=== PATIENT | male | born 1980 | race Two or more races ===

== ENCOUNTER 2020-08-08 05:50 | Emergency (ER) | payer OTHER, SELFPAY ==
[2020-08-08 05:52] VITALS: BP 143/93; PULSE 90; RESP 18; TEMP 36.4; O2SAT 97
--- NOTE | 2020-08-08 06:22 | PC.NURSE ---
registration reports that at 06:10 patient walked towards exit. she asked him if he was going to stay, he replied no, I'm in too much pain. RN walked out to front entrance, pt was in his car and leaving.
== END 2020-08-08 06:40 | disposition left against medical advice (07) ==
PROVIDERS: Emergency Provider Emergency Medicine; PCP Internal Medicine
DX: H57.10 Ocular pain, unspecified eye (principal)
CPT/HCPCS: 99282; 99283

== ENCOUNTER 2020-08-13 07:44 | Outpatient (REF) | payer OTHER, SELFPAY ==
[2020-08-13 08:26] LABS: MANUAL DIFF FLAG NO
[2020-08-13 08:34] LABS: Basophils Absolute Auto 0.1 X10*3/uL (0.0-0.2); Basophils Percent Auto 1.5 % (0-2); Eosinophils Absolute Auto 0.5 X10*3/uL (0.0-0.4); Eosinophils Percent Auto 6.9 % (0-4); Hematocrit 42.1 % (42-52); Hemoglobin 13.7 g/dl (14.0-18.0); Imm Gran Abs Auto 0.02 X10*3/uL (0.00-0.03); Imm Gran Pct Auto 0.3 % (0.0-0.4); Immature Retic Fraction 6.6 % (2.3-13.4); Lymphocytes Absolute Auto 2.3 X10*3/uL (1.2-4.9); Lymphocytes Percent Auto 32.7 % (20-40); Mean Corpuscular HGB Conc 32.5 g/dl (31.0-36.0); Mean Corpuscular Hemoglobin 30.9 pg (27.0-33.0); Mean Platelet Volume 10.5 fL (9.4-12.4); Monocytes Absolute Auto 0.8 X10*3/uL (0.1-1.2); Monocytes Percent Auto 11.5 % (2-11); Neutrophils Absolute Auto 3.3 X10*3/uL (2.0-8.3); Neutrophils Percent Auto 47.1 % (45-73); Platelet Count 368 X10*3/uL (160-400); Red Blood Count 4.43 X10*6/uL (4.60-5.80); Red Cell Distribution Width 13.4 % (11.0-16.0); Reticulocyte Percent 0.9 % (0.5-1.8); Reticulocytes Absolute 0.041 X10*6/uL (0.026-0.095); White Blood Count 7.1 X10*3/uL (4.8-10.8)
[2020-08-13 08:53] LABS: Alanine Aminotransferase 8 U/L (0-40); Albumin Level 4.6 g/dL (3.5-5.0); Alkaline Phosphatase 72 U/L (39-117); Anion Gap 11 (12-20); Aspartate Amino Transferase 13 U/L (5-37); Bilirubin Total 0.4 mg/dL (0.0-1.0); Blood Urea Nitrogen 16 mg/dL (9-16); Calcium 9.4 mg/dL (8.4-10.2); Carbon Dioxide 28 mmol/L (22-29); Chloride 107 mmol/L (96-108); Cholesterol 127 mg/dL; Estimated Glomerular Filt Rate > 60; Glucose Random 114 mg/dL (60-115); HDL Cholesterol 41 mg/dL; Iron 58 mcg/dL (45-160); LDL Cholesterol Calculated 75 mg/dl; Percent Iron Saturation 17 % (15-50); Potassium 5.1 mmol/l (3.3-5.1); Sodium 141 mmol/L (135-145); Total Iron Binding Capacity 342 mcg/dL (228-428); Total Protein 7.2 g/dL (6.5-8.0); Triglycerides 58 mg/dL; Unsaturated Iron Binding 284 ug/dL
[2020-08-13 09:12] LABS: HBS Num1 > 1000.00 mIU/mL (0-7.99); HBc Num1 0.06 S/CO (0.00-0.79); Hepatitis B Core Antibody Nonreactive (Nonreactive); ~Hepatitis B Surface Antibody REACTIVE (Nonreactive); ~Hepatitis C Antibody Nonreactive (Nonreactive)
[2020-08-13 09:16] LABS: Ferritin 147 ng/mL (20-250); Thyroid Stimulating Hormone 1.44 mIU/mL (0.32-4.0)
[2020-08-13 09:25] LABS: HBsAGNum1 0.21 S/CO (0.00-0.99); HIV AB/AG Nonreactive (Nonreactive); HIV Num 1 0.09 S/CO (0.00-0.99); Hepatitis B Surface Antigen Negative (Negative)
[2020-08-13 10:22] LABS: Folate 5.5 ng/mL (> or = 4.0); Vitamin B12 379 pg/mL (200-900)
[2020-08-13 12:59] LABS: CT PCR NOT DETECTED (Not Detect.); NG PCR NOT DETECTED (Not Detect.)
[2020-08-14 07:54] LABS: Syphilis Screen Nonreactive (Nonreactive)
== END 2020-08-13 07:45 | disposition home or self-care (01) ==
LOC: HO.LAB 07:44
PROVIDERS: PCP Internal Medicine; Visit Provider Internal Medicine
DX: Z20.2 Contact with and (suspected) exposure to infections with a predominantly sexual mode of transmission (principal)
CPT/HCPCS: 36415; 80053; 80061; 82607; 82728; 82746; 83540; 84443; 85025; 85045; 86704; 86706; 86780; 86803; 87340; 87389; 87491; 87591

== ENCOUNTER 2021-08-07 23:17 | Emergency (ER) | payer OTHER, SELFPAY ==
[2021-08-07 23:26] LABS: Glucose, Whole Blood 156 mg/dL (60-115)
[2021-08-07 23:28] VITALS: BP 132/85; PULSE 79; RESP 16; TEMP 36.6; O2SAT 100; BMI 22.1
--- NOTE | 2021-08-07 23:34 | ED.MALEGU ---
HPI - Male Genitourinary General Chief complaint: General Medical Stated complaint: multiple complaints Time Seen by Provider: 08/07/21 23:29 Source: patient Mode of arrival: ambulatory Limitations: no limitations History of Present Illness MD Complaint: penile discharge Onset (ago): day(s) (2) Duration: constant Location: penis Severity: mild Quality: burning Relieving factors: none Exacerbating factors: none Context: new sexual partner (intercourse with his partner (not monogamous) on Wednesday symptoms started on Wednesday) Associated symptoms: Reports discharge Related Data Previous Rx's Medication Instructions Recorded albuterol sulfate 90 mcg/actuation 2 puff INHALATION QID PRN #8.5 g 12/24/20 aerosol inhaler (ProAir HFA) budesonide-formoterol HFA 160 2 puff INHALATION BID 30 Days 12/27/20 mcg-4.5 mcg/actuation aerosol #10.2 g inhaler (Symbicort) hydrocortisone 2.5 % topical cream 1 appl TOPICAL BID PRN 14 Days #28 02/12/21 g clotrimazole 1 % topical cream 1 appl TOPICAL BID 28 Days #45 g 08/04/21 famotidine 20 mg tablet 20 mg PO BEDTIME #30 tab 08/04/21 miconazole nitrate 2 % topical 1 appl TOPICAL DAILY #71 g 08/04/21 powder (Zeasorb AF) doxycycline hyclate 100 mg capsule 100 mg PO BID 7 Days #14 cap 08/07/21 Allergies Allergy/AdvReac Type Severity Reaction Status Date / Time No Known Allergies Allergy Verified 08/04/21 09:59 Review of Systems Review of Systems: Constitutional : No Fever, No Chills ENT/Mouth : No sore throat, No Rhinorrhea Eyes: No Eye Pain, No Swelling, No Redness Cardiovascular : No Chest Pain, No SOB Gastrointestinal : No Nausea, No Vomiting, No Diarrhea, No abdominal Pain Genitourinary : pos Dysuria, No Urinary Frequency, No Hematuria, pos urethral drainage Musculoskeletal : No joint pain, No Myalgias, No Joint Swelling Skin : No Skin Lesions, No rash Neuro : No Weakness, No Numbness, No Dizziness, No Headache Psych : No Anxiety/Panic, No Depression PMFSH Past Medical History Attestation statement: The following information was validated with the patient. Medical History Alcohol abuse Alopecia Asthma GERD (gastroesophageal reflux disease) Insomnia Marijuana smoker Polysubstance abuse Surgical History Hx of appendectomy Family History Family History Father Lung cancer Mother CVA (cerebral vascular accident) Diabetic acetonemia Brother Multiple sclerosis Sister Multiple sclerosis Maternal Aunt Skin cancer Social History Social History Housing: Apartment Alcohol intake: current Alcohol intake frequency: holidays/special occasions only Patient Tobacco Use Status: Former Tobacco user Tobacco use type: Cigarette Years Smoked: quit 06/2021 e-Cigarette/Vaping Use: Never Used Second Hand Smoke Exposure: No Substance Use Type: Crack/Cocaine and Marijuana Advance Directives: No Advance Directives Information Provided: Yes Current occupational status: employed and unemployed Physical Exam Vital Signs: Vital Signs: Last Vital Signs Temp 97.8 F 08/07/21 23:28 Pulse 79 08/07/21 23:28 Resp 16 08/07/21 23:28 BP 132/85 08/07/21 23:28 Pulse Ox 100 08/07/21 23:28 Body Mass Index 22.1 Appearance: Alert. Oriented X3. No acute distress. Eyes: Pupils equal, round and reactive to light. ENT: Pharynx normal. Neck: Normal inspection. Neck supple. CVS: Normal heart rate and rhythm. Pulses normal. Respiratory: Breath sounds normal. Abdomen: Soft and nontender. : clear glue like drainage from urethra reappears after wiping no lesions seen Skin: Skin warm and dry. Normal skin color. Extremities: No lower extremity edema. Neuro: Oriented X 3. No motor deficit. No sensory deficit. MDM - Male Genitourinary MDM Narrative Medical decision making narrative: 41 yo male unprotected sex now has drainage from penis - no other complaints, suspect gonococcal urethritis - IM ceftriaxone and doxy ordered. Discussed safe sex practices Lab Data Labs: Lab Results 08/07/21 Range/Units 23:21 POC Glucose 156 H (60-115) mg/dL Discharge Plan Discharge Clinical Impression: STI (sexually transmitted infection) Patient Disposition: Home, Self-Care Instructions: Sexually Transmitted Diseases (ED) Additional Instructions: return to ED for any worsening symptoms or concerns you were given medication to treat gonorrhea and chlamydia finish all antibiotics. no sex for 10 days. your partner needs to be treated as well or you will pass this infection back and forth Prescriptions: New doxycycline hyclate 100 mg capsule 100 mg PO BID 7 Days Qty: 14 RF: 0 No Action albuterol sulfate [ProAir HFA] 90 mcg/actuation HFA aerosol inhaler 2 puff inhalation QID PRN (Reason: shortness of breath or wheezing) Qty: 8.5 RF: 0 budesonide-formoterol [Symbicort] 160-4.5 mcg/actuation HFA aerosol inhaler 2 puff inhalation BID 30 Days Qty: 10.2 RF: 11 famotidine 20 mg tablet 20 mg PO BEDTIME Qty: 30 RF: 3 Zeasorb AF 2 % powder 1 appl topical DAILY Qty: 71 RF: 0 clotrimazole 1 % cream 1 appl topical BID 28 Days Qty: 45 RF: 0 hydrocortisone 2.5 % cream 1 appl topical BID PRN (Reason: skin irritation) 14 Days Qty: 28 RF: 0
[2021-08-08] MEDS: cefTRIAXone sodium 500 MG, Lidocaine HCl 1 % MPF 1 ML IM (00:29)
[2021-08-08 09:52] LABS: CT PCR NOT DETECTED (Not Detect.); NG PCR DETECTED (Not Detect.)
== END 2021-08-08 00:39 | disposition home or self-care (01) ==
PROVIDERS: Emergency Provider Emergency Medicine; PCP Internal Medicine
DX: A54.09 Other gonococcal infection of lower genitourinary tract (principal)
CPT/HCPCS: 82947; 87491; 87591; 96372; 99283; 99284; J0696

== ENCOUNTER 2021-08-11 10:01 | Emergency (ER) | payer OTHER, SELFPAY ==
--- NOTE | ~2021-08-11 | XR_ITS ---
EXAMINATION: XR FINGER, LEFT CLINICAL INFORMATION: Finger injury involving the fifth digit COMPARISON: None TECHNIQUE: 3 views of the left hand fifth digit. FINDINGS: Intra-articular fracture at the base of the fifth digit middle phalanx. There is palmar subluxation of the middle phalanx in relation to the proximal phalanx. There is a 0.2 cm ossific fragment at the dorsal aspect of the articulation from the middle phalanx. Remaining joint spaces are maintained. Soft tissue swelling. XR/XR finger LT min 2V IMPRESSION: Intra-articular fracture at the dorsal base of the fifth digit middle phalanx. Subluxation at the joint.
[2021-08-11 11:13] VITALS: BP 127/88; PULSE 72; RESP 18; TEMP 36; O2SAT 98; BMI 22.1
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
[2021-08-11] MEDS: oxyCODONE HCl Immed Release 5 MG TABLET PO (12:31)
== END 2021-08-11 12:48 | disposition home or self-care (01) ==
PROVIDERS: Emergency Provider Emergency Medicine; PCP Internal Medicine
DX: S62.657A Nondisplaced fracture of middle phalanx of left little finger, initial encounter for closed fracture (principal); J45.909 Unspecified asthma, uncomplicated; W51.XXXA Accidental striking against or bumped into by another person, initial encounter; Y93.9 Activity, unspecified; Y92.9 Unspecified place or not applicable; Y99.9 Unspecified external cause status
CPT/HCPCS: 73140; 99283

== ENCOUNTER 2021-08-14 08:54 | Outpatient (REF) | payer OTHER, SELFPAY ==
--- NOTE | ~2021-08-14 | XR_ITS ---
EXAMINATION: XR HAND, LEFT XR HAND, LEFT CLINICAL INFORMATION: Pain. COMPARISON: 08/11/2021 TECHNIQUE: 4 views of the left hand prior to splinting. 4 views of the left hand after splinting. FINDINGS: There is redemonstration of the fracture at the articular base of the fifth digit middle phalanx. On initial images there is persistent subluxation of the middle phalanx in relation to the proximal phalanx. Remaining joint spaces are maintained. The second set of images shows placement of a splint of the fifth digit. There is unchanged alignment. XR/XR hand LT min 3V IMPRESSION: Redemonstration of intra-articular fracture at the base of the fifth digit middle phalanx with splint placement.
--- NOTE | ~2021-08-14 | XR_ITS ---
EXAMINATION: XR HAND, LEFT XR HAND, LEFT CLINICAL INFORMATION: Pain. COMPARISON: 08/11/2021 TECHNIQUE: 4 views of the left hand prior to splinting. 4 views of the left hand after splinting. FINDINGS: There is redemonstration of the fracture at the articular base of the fifth digit middle phalanx. On initial images there is persistent subluxation of the middle phalanx in relation to the proximal phalanx. Remaining joint spaces are maintained. The second set of images shows placement of a splint of the fifth digit. There is unchanged alignment. XR/XR hand LT min 3V IMPRESSION: Redemonstration of intra-articular fracture at the base of the fifth digit middle phalanx with splint placement.
== END 2021-08-14 08:55 | disposition home or self-care (01) ==
LOC: HO.HOSX 08:54
PROVIDERS: Visit Provider Physician Assistant
DX: S62.627A Displaced fracture of middle phalanx of left little finger, initial encounter for closed fracture (principal)
CPT/HCPCS: 73130; 99202

== ENCOUNTER 2021-08-28 09:03 | Outpatient (REF) | payer OTHER, SELFPAY ==
[2021-08-28 09:13] LABS: MANUAL DIFF FLAG NO
[2021-08-28 09:54] LABS: Basophils Absolute Auto 0.1 X10*3/uL (0.0-0.2); Basophils Percent Auto 1.3 % (0-2); Eosinophils Absolute Auto 0.4 X10*3/uL (0.0-0.4); Eosinophils Percent Auto 4.9 % (0-4); Hematocrit 44.5 % (42.0-52.0); Hemoglobin 14.9 g/dl (14.0-18.0); Imm Gran Abs Auto 0.02 X10*3/uL (0.00-0.03); Imm Gran Pct Auto 0.3 % (0.0-0.4); Immature Retic Fraction 11.5 % (2.3-13.4); Lymphocytes Absolute Auto 2.1 X10*3/uL (1.2-4.9); Lymphocytes Percent Auto 27.6 % (20-40); Mean Corpuscular HGB Conc 33.5 g/dl (31.0-36.0); Mean Corpuscular Hemoglobin 30.5 pg (27.0-33.0); Mean Platelet Volume 10.3 fL (9.4-12.4); Monocytes Absolute Auto 0.8 X10*3/uL (0.1-1.2); Monocytes Percent Auto 10.9 % (2-11); Neutrophils Absolute Auto 4.2 x10*3/uL (2.0-8.3); Platelet Count 418 X10*3/uL (160-400); Red Blood Count 4.89 X10*6/uL (4.60-5.80); Red Cell Distribution Width 13.7 % (11.0-16.0); Retic HGB Equivalent 35.2 pg (30.0-35.0); Reticulocyte Percent 1.8 % (0.5-1.8); Reticulocytes Absolute 0.088 X10*6/uL (0.026-0.095); White Blood Count 7.7 X10*3/uL (4.8-10.8)
[2021-08-28 10:05] LABS: Alanine Aminotransferase 18 U/L (0-40); Albumin Level 4.8 g/dL (3.5-5.0); Alkaline Phosphatase 61 U/L (39-117); Anion Gap 14 (12-20); Aspartate Amino Transferase 17 U/L (5-37); Bilirubin Direct < 0.2 mg/dL (0.0-0.5); Bilirubin Total 0.3 mg/dL (0.0-1.0); Blood Urea Nitrogen 14 mg/dL (9-16); Calcium 10.2 mg/dL (8.4-10.2); Carbon Dioxide 28 mmol/L (22-29); Chloride 102 mmol/L (96-108); Cholesterol 172 mg/dL; Estimated Glomerular Filt Rate > 60; Glucose Random 81 mg/dL (60-115); HDL Cholesterol 45 mg/dL; Iron 55 mcg/dL (45-160); LDL Cholesterol Calculated 105 mg/dl; Percent Iron Saturation 13 % (15-50); Potassium 4.9 mmol/L (3.3-5.1); Sodium 139 mmol/L (135-145); Total Iron Binding Capacity 414 mcg/dL (228-428); Total Protein 7.9 g/dL (6.5-8.0); Triglycerides 111 mg/dL; Unsaturated Iron Binding 359 ug/dL
[2021-08-28 10:36] LABS: Folate 15.5 ng/mL (> or = 4.0); Vitamin B12 490 pg/mL (200-900)
[2021-08-28 10:40] LABS: Free T4 (Free Thyroxine) 0.91 ng/dL (0.71-1.85); Thyroid Stimulating Hormone 3.53 uIU/mL (0.32-4.0)
[2021-08-28 11:11] LABS: Ferritin 176 ng/mL (20-250)
[2021-08-29 08:29] LABS: Syphilis Screen Nonreactive (Nonreactive)
[2021-08-29 09:00] LABS: HBsAGNum1 0.16 S/CO (0.00-0.99); Hepatitis B Surface Antigen Negative (Negative); ~HepC Num1 0.09 S/CO (0.00-0.79); ~Hepatitis C Antibody Nonreactive (Nonreactive)
[2021-08-29 09:25] LABS: HBS Num1 > 1000.00 mIU/mL (0-7.99); HBc Num1 0.07 S/CO (0.00-0.79); HIV AB/AG Nonreactive (Nonreactive); HIV Num 1 0.08 S/CO (0.00-0.99); Hepatitis B Core Antibody Nonreactive (Nonreactive); ~Hepatitis B Surface Antibody REACTIVE (Nonreactive)
== END 2021-08-28 09:04 | disposition home or self-care (01) ==
LOC: HO.LAB 09:03
PROVIDERS: PCP Internal Medicine; Visit Provider Internal Medicine
DX: Z00.00 Encounter for general adult medical examination without abnormal findings (principal); F41.9 Anxiety disorder, unspecified; R79.89 Other specified abnormal findings of blood chemistry; R94.5 Abnormal results of liver function studies; E78.00 Pure hypercholesterolemia, unspecified
CPT/HCPCS: 36415; 80053; 80061; 82248; 82607; 82728; 82746; 83540; 84439; 84443; 85025; 85045; 86704; 86706; 86780; 86803; 87340; 87389

== ENCOUNTER 2021-09-09 09:50 | Outpatient (REF) | payer OTHER, SELFPAY ==
--- NOTE | ~2021-09-09 | XR_ITS ---
EXAMINATION: XR HAND, LEFT CLINICAL INFORMATION: Fracture COMPARISON: Previous x-rays most recent 08/14/2021 TECHNIQUE: PA, lateral, and oblique views of the left hand. FINDINGS: There is fracture dislocation at the PIP joint of the fifth finger. There is volar displacement of the middle phalanx with respect to the proximal phalanx. There are small fracture fragments seen in the joint space. There is overlying soft tissue swelling. There is periarticular osteopenia. XR/XR hand LT min 3V IMPRESSION: No change in fracture dislocation of the PIP joint of the fifth finger.
== END 2021-09-09 09:51 | disposition home or self-care (01) ==
LOC: HO.HOSX 09:50
PROVIDERS: Visit Provider Physician Assistant
DX: S62.627D Displaced fracture of middle phalanx of left little finger, subsequent encounter for fracture with routine healing (principal)
CPT/HCPCS: 73130; 99212

== ENCOUNTER 2021-09-30 10:38 | Outpatient (REF) | payer OTHER, SELFPAY ==
--- NOTE | ~2021-09-30 | XR_ITS ---
EXAMINATION: XR HAND, LEFT CLINICAL INFORMATION: Pain. COMPARISON: Multiple priors, most recent left hand radiographs dated 09/09/2021. TECHNIQUE: PA view of the left hand as well as oblique and lateral views of the left 5th digit. FINDINGS: Redemonstration of anterior dislocation at the 5th middle phalanx with an associated dorsal fracture in unchanged anatomic alignment. Minimal new bone/callus formation when compared to the prior examination. No acute fracture or dislocation. No new osseous erosion. No abnormal soft tissue calcification. XR/XR hand LT min 3V IMPRESSION: Anterior dislocation of the 5th middle phalanx with associated dorsal fracture in unchanged anatomic alignment with minimal new bone/callus formation.
== END 2021-09-30 10:39 | disposition home or self-care (01) ==
LOC: HO.HOSX 10:38
PROVIDERS: PCP Internal Medicine; Visit Provider Orthopaedic Surgery
DX: S63.277D Dislocation of unspecified interphalangeal joint of left little finger, subsequent encounter (principal); S62.627D Displaced fracture of middle phalanx of left little finger, subsequent encounter for fracture with routine healing
CPT/HCPCS: 73130; 99212

== ENCOUNTER 2021-12-29 09:14 | Outpatient (REF) | payer OTHER, SELFPAY ==
[2021-12-29 10:35] LABS: Estimated Average Glucose 108 mg/dL; Hemoglobin A1C 137.7386 umol/L; Hemoglobin A1c % 5.4 %
[2021-12-29 10:58] LABS: Alanine Aminotransferase 34 U/L (0-40); Albumin Level 4.3 g/dL (3.5-5.0); Alkaline Phosphatase 72 U/L (39-117); Anion Gap 13 (12-20); Aspartate Amino Transferase 24 U/L (5-37); Bilirubin Total 0.2 mg/dL (0.0-1.0); Blood Urea Nitrogen 17 mg/dL (9-16); Calcium 9.8 mg/dL (8.4-10.2); Carbon Dioxide 25 mmol/L (22-29); Chloride 104 mmol/L (96-108); Estimated Glomerular Filt Rate > 60; Glucose Random 93 mg/dL (60-115); Potassium 4.7 mmol/L (3.3-5.1); Sodium 137 mmol/L (135-145); Total Protein 7.4 g/dL (6.5-8.0)
== END 2021-12-29 09:15 | disposition home or self-care (01) ==
LOC: HO.LAB 09:14
PROVIDERS: PCP Internal Medicine; Visit Provider Internal Medicine
DX: R73.02 Impaired glucose tolerance (oral) (principal)
CPT/HCPCS: 36415; 80053; 83036

== ENCOUNTER 2022-02-26 11:10 | Outpatient (REF) | payer OTHER, SELFPAY ==
[2022-02-26 14:41] LABS: CT PCR NOT DETECTED (Not Detect.); NG PCR NOT DETECTED (Not Detect.)
== END 2022-02-26 11:11 | disposition home or self-care (01) ==
LOC: HO.LAB 11:10
PROVIDERS: PCP Internal Medicine; Visit Provider Internal Medicine
DX: Z11.3 Encounter for screening for infections with a predominantly sexual mode of transmission (principal)
CPT/HCPCS: 87491; 87591

== ENCOUNTER 2022-08-21 08:30 | Outpatient (REF) | payer OTHER, SELFPAY ==
[2022-08-21 08:42] LABS: MANUAL DIFF FLAG NO
[2022-08-21 09:09] LABS: Basophils Absolute Auto 0.1 X10*3/uL (0.0-0.2); Basophils Percent Auto 1.2 % (0-2); Eosinophils Absolute Auto 0.3 X10*3/uL (0.0-0.4); Hematocrit 43.2 % (42.0-52.0); Hemoglobin 14.5 g/dl (14.0-18.0); Imm Gran Abs Auto 0.03 X10*3/uL (0.00-0.03); Imm Gran Pct Auto 0.4 % (0.0-0.4); Immature Retic Fraction 8.2 % (2.3-13.4); Lymphocytes Absolute Auto 1.5 X10*3/uL (1.2-4.9); Mean Corpuscular HGB Conc 33.6 g/dl (31.0-36.0); Mean Corpuscular Hemoglobin 30.2 pg (27.0-33.0); Mean Platelet Volume 10.1 fL (9.4-12.4); Monocytes Absolute Auto 0.8 X10*3/uL (0.1-1.2); Monocytes Percent Auto 10.9 % (2-11); Neutrophils Absolute Auto 4.6 x10*3/uL (2.0-8.3); Neutrophils Percent Auto 63.5 % (45-73); Platelet Count 457 X10*3/uL (160-400); Retic HGB Equivalent 34.8 pg (30.0-35.0); Reticulocyte Percent 1.5 % (0.5-1.8); Reticulocytes Absolute 0.071 X10*6/uL (0.026-0.095); White Blood Count 7.3 X10*3/uL (4.8-10.8)
[2022-08-21 09:24] LABS: Estimated Average Glucose 111 mg/dL; Hemoglobin A1c % 5.5 %
[2022-08-21 09:36] LABS: Alanine Aminotransferase 18 U/L (0-40); Albumin Level 4.6 g/dL (3.5-5.0); Alkaline Phosphatase 57 U/L (39-117); Anion Gap 18 (12-20); Aspartate Amino Transferase 16 U/L (5-37); Bilirubin Total 0.8 mg/dL (0.0-1.0); Blood Urea Nitrogen 14 mg/dL (9-16); Carbon Dioxide 23 mmol/L (22-29); Chloride 103 mmol/L (96-108); Cholesterol 141 mg/dL; Estimated Glomerular Filt Rate > 60; Glucose Random 100 mg/dL (60-115); HDL Cholesterol 32 mg/dL; Iron 109 mcg/dL (45-160); LDL Cholesterol Calculated 87 mg/dl; Percent Iron Saturation 29 % (15-50); Potassium 4.1 mmol/L (3.3-5.1); Sodium 140 mmol/L (135-145); Total Iron Binding Capacity 372 mcg/dL (228-428); Total Protein 7.7 g/dL (6.5-8.0); Triglycerides 112 mg/dL; Unsaturated Iron Binding 263 ug/dL
[2022-08-21 09:57] LABS: HBS Num1 > 1000.00 mIU/mL (0-7.99); HBc Num1 0.08 S/CO (0.00-0.79); HBsAGNum1 0.15 S/CO (0.00-0.99); HIV AB/AG Nonreactive (Nonreactive); HIV Num 1 0.07 S/CO (0.00-0.99); Hepatitis B Core Antibody Nonreactive (Nonreactive); Hepatitis B Surface Antigen Negative (Negative); ~HepC Num1 0.08 S/CO (0.00-0.79); ~Hepatitis B Surface Antibody REACTIVE (Nonreactive); ~Hepatitis C Antibody Nonreactive (Nonreactive)
[2022-08-21 09:59] LABS: Ferritin 173 ng/mL (20-250); Free T4 (Free Thyroxine) 0.96 ng/dL (0.71-1.85); Thyroid Stimulating Hormone 0.82 uIU/mL (0.32-4.0)
[2022-08-21 10:07] LABS: Folate 13.1 ng/mL (> or = 4.0); Vitamin B12 548 pg/mL (200-900)
== END 2022-08-21 08:31 | disposition home or self-care (01) ==
LOC: HO.LAB 08:30
PROVIDERS: PCP Internal Medicine; Visit Provider Internal Medicine
DX: R73.02 Impaired glucose tolerance (oral) (principal); R79.89 Other specified abnormal findings of blood chemistry; E78.00 Pure hypercholesterolemia, unspecified; K21.9 Gastro-esophageal reflux disease without esophagitis; Z11.4 Encounter for screening for human immunodeficiency virus [HIV]
CPT/HCPCS: 36415; 80053; 80061; 82607; 82728; 82746; 83036; 83540; 84439; 84443; 85025; 85045; 86704; 86706; 86803; 87340; 87389

== ENCOUNTER 2022-09-07 19:33 | Inpatient (IN) | payer OTHER, SELFPAY ==
--- NOTE | 2022-09-07 19:41 | ED_ITS ---
HPI - Psych General Chief Complaint: Psychiatric Symptoms Stated Complaint: Crisis/Paranoid Time Seen by Provider: 09/07/22 20:13 Related Data Home Medications Medication Instructions Recorded Confirmed perphenazine 4 mg tablet 4 mg PO BID 09/24/22 09/24/22 zolpidem 10 mg tablet 10 mg PO BEDTIME PRN insomnia 09/24/22 09/24/22 Previous Rx's Medication Instructions Recorded famotidine 20 mg tablet 20 mg PO BEDTIME 30 days #30 tabs 09/11/22 olanzapine 10 mg tablet 10 mg PO BEDTIME 30 days #30 tabs 09/11/22 albuterol sulfate 90 mcg/actuation 2 puff PO Q4-6H PRN for wheezing 12/13/22 aerosol inhaler (Ventolin HFA) #18 ea Allergies Allergy/AdvReac Type Severity Reaction Status Date / Time No Known Allergies Allergy Verified 12/30/22 13:56 [facility] Past Medical History Medical History Alcohol abuse Alopecia Asthma GERD (gastroesophageal reflux disease) Insomnia Marijuana smoker Polysubstance abuse Surgical History Hx of appendectomy Family History Family History Father Lung cancer Mother CVA (cerebral vascular accident) Diabetic acetonemia Brother Multiple sclerosis Sister Multiple sclerosis Maternal Aunt Skin cancer Social History Social History Household Members: Family Housing: House Housing Other:: Initially stated that he lives with mother & then reports he is homeless Are you a primary healthcare architect to a significant other at home: No Do you presently have visiting nurse or other home services: No Alcohol intake: current Alcohol intake frequency: a few times a week Patient Tobacco Use Status: Former Tobacco user Tobacco use type: Cigarette Years Smoked: quit 06/2021 e-Cigarette/Vaping Use: Never Used Second Hand Smoke Exposure: No Substance Use Type: Crack/Cocaine, Marijuana and Opiates service: No Current occupational status: employed and unemployed Sexual orientation: Don't Know Cognitive needs: No Hearing needs: No Vision needs: No Physical Exam Vital Signs: Vital Signs: Last Vital Signs Temp 98.0 F 09/11/22 10:25 Pulse 85 09/11/22 10:25 Resp 17 09/11/22 10:25 BP 136/82 09/11/22 10:25 Pulse Ox 99 09/11/22 10:25 O2 Del Method Room Air 09/10/22 20:25 BMI result Body Mass Index 27.3 Course Reevaluation(s) Reevaluation #1: RME 42 yo M hx aniety, depression, gerd, asthma presents w/ paranoia, visual and auditory hallucinations. Here with mother. No dx of schizo or bipolar. Seeing people who are going to kill him they are going to kill me , fears his life. Hasnt slept in 3 days per mother. Reports cocaine abuse. No thoughth of SI/HI. Denies alcohol. No medical complaints Pe- patient appears paranoid and anxious. Plan- medical clearance. Time: 19:44 Reevaluation #2: I did a rapid medical exam on this patient I was not the primary provider, patient was evaluated by provider Seth on 09/07/22, please refer to that providers full chart Medications Administered Discontinued Medications Generic Name Dose Route Start Last Admin Trade Name Freq PRN Reason Stop Dose Admin Divalproex Sodium 250 mg 09/09/22 09:00 09/09/22 09:17 Divalproex Sodium 250 Mg Tablet. PO 250 mg BID АННА Administration Famotidine 20 mg 09/09/22 21:00 09/10/22 22:24 Famotidine 20 Mg Tablet PO 20 mg BEDTIME АННА Administration Hydroxyzine HCl 25 mg 09/08/22 23:07 09/10/22 22:28 Hydroxyzine Hcl 25 Mg Tablet PO 25 mg Q6H PRN Administration Anxiety Lorazepam 1 mg 09/07/22 19:46 09/07/22 20:20 Lorazepam 1 Mg Tablet PO 09/07/22 19:47 Not Given ONCE ONE Olanzapine 10 mg 09/08/22 00:29 09/08/22 00:45 Olanzapine 10 Mg Vial IM 09/08/22 00:30 10 mg ONCE ONE Administration Olanzapine 10 mg 09/09/22 21:00 09/10/22 22:24 Olanzapine Odt 10 Mg Tab.Rapdis TRANSLINGU 10 mg BEDTIME АННА Administration MDM - Psych Lab Data 09/08/22 16:33 09/07/22 23:47 Labs: Lab Results 09/07/22 09/07/2209/08/22 Range/Units 23:47 23:47 01:48 WBC 22.7 H (4.8-10.8) X10*3/uL RBC 5.10 (4.60-5.80) X10*6/uL Hgb 15.4 (14.0-18.0) g/dl Hct 45.8 (42.0-52.0) % MCV 89.8 (80.0-98.0) fL MCH 30.2 (27.0-33.0) pg MCHC 33.6 (31.0-36.0) g/dl RDW 13.9 (11.0-16.0) % Plt Count 483 H (160-400) X10*3/uL MPV 9.9 (9.4-12.4) fL Immature Gran % (Auto) 0.5 H (0.0-0.4) % Neut % (Auto) 87.3 H (45-73) % Lymph % (Auto) 5.3 L (20-40) % Morris % (Auto) 5.9 (2-11) % Eos % (Auto) 0.4 (0-4) % Baso % (Auto) 0.6 (0-2) % Lymph # (Auto) 1.2 (1.2-4.9) X10*3/uL Morris # (Auto) 1.3 H (0.1-1.2) X10*3/uL Eos # (Auto) 0.1 (0.0-0.4) X10*3/uL Baso # (Auto) 0.1 (0.0-0.2) X10*3/uL Abs Immat Gran (auto) 0.11 H (0.00-0.03) X10*3/uL Absolute Neuts (auto) 19.8 H (2.0-8.3) x10*3/uL Absolute Nucleated RBC 0.000 (0.0-0.012) X10*3/uL Nucleated RBC % (auto) 0.0 (0.0-0.2) /100WBC Sodium 138 (135-145) mmol/L Potassium 4.4 (3.3-5.1) mmol/L Chloride 102 (96-108) mmol/L Carbon Dioxide 23 (22-29) mmol/L Anion Gap 17 (12-20) BUN 12 (9-16) mg/dL Creatinine 1.13 (0.5-1.4) mg/dL Estim Creat Clear Calc 87.7 Estimated GFR > 60 Random Glucose 142 H D (60-115) mg/dL Calcium 10.7 H D (8.4-10.2) mg/dL Total Bilirubin 0.4 (0.0-1.0) mg/dL AST 20 (5-37) U/L ALT 20 (0-40) U/L Alkaline Phosphatase 74 D (39-117) U/L Total Protein 8.8 H (6.5-8.0) g/dL Albumin 5.4 H (3.5-5.0) g/dL Salicylates < 5.0 L (15-30) mg/dL Urine Opiates Screen (Not Detect) Urine Fentanyl Screen (Not Detect) Acetaminophen < 1 (<30) mcg/mL Ur Barbiturates Screen (Not Detect) Ur Phencyclidine Scrn (Not Detect) Ur Amphetamines Screen (Not Detect) U Benzodiazepines Scrn (Not Detect) Urine Cocaine Screen (Not Detect) U Marijuana (THC) Screen (Not Detect) Ethyl Alcohol < 10 mg/dL Influenza Type A (PCR) NEGATIVE (Negative) Influenza Type B (PCR) NEGATIVE (Negative) RSV RNA Qual (PCR) NEGATIVE (Negative) SARS-CoV-2 RNA (RT-PCR) NEGATIVE (Negative) 09/08/22 09/08/22 Range/Units 14:56 16:33 WBC 8.2 (4.8-10.8) X10*3/uL RBC 4.75 (4.60-5.80) X10*6/uL Hgb 14.0 (14.0-18.0) g/dl Hct 42.9 (42.0-52.0) % MCV 90.3 (80.0-98.0) fL MCH 29.5 (27.0-33.0) pg MCHC 32.6 (31.0-36.0) g/dl RDW 14.1 (11.0-16.0) % Plt Count 422 H (160-400) X10*3/uL MPV 10.0 (9.4-12.4) fL Immature Gran % (Auto) 0.4 (0.0-0.4) % Neut % (Auto) 58.1 (45-73) % Lymph % (Auto) 22.9 (20-40) % Morris % (Auto) 12.0 H (2-11) % Eos % (Auto) 5.3 H (0-4) % Baso % (Auto) 1.3 (0-2) % Lymph # (Auto) 1.9 (1.2-4.9) X10*3/uL Morris # (Auto) 1.0 (0.1-1.2) X10*3/uL Eos # (Auto) 0.4 (0.0-0.4) X10*3/uL Baso # (Auto) 0.1 (0.0-0.2) X10*3/uL Abs Immat Gran (auto) 0.03 (0.00-0.03) X10*3/uL Absolute Neuts (auto) 4.7 (2.0-8.3) x10*3/uL Absolute Nucleated RBC 0.000 (0.0-0.012) X10*3/uL Nucleated RBC % (auto) 0.0 (0.0-0.2) /100WBC Sodium (135-145) mmol/L Potassium (3.3-5.1) mmol/L Chloride (96-108) mmol/L Carbon Dioxide (22-29) mmol/L Anion Gap (12-20) BUN (9-16) mg/dL Creatinine (0.5-1.4) mg/dL Estim Creat Clear Calc Estimated GFR Random Glucose (60-115) mg/dL Calcium (8.4-10.2) mg/dL Total Bilirubin (0.0-1.0) mg/dL AST (5-37) U/L ALT (0-40) U/L Alkaline Phosphatase (39-117) U/L Total Protein (6.5-8.0) g/dL Albumin (3.5-5.0) g/dL Salicylates (15-30) mg/dL Urine Opiates Screen Not Detected (Not Detect) Urine Fentanyl Screen POSITIVE H (Not Detect) Acetaminophen (<30) mcg/mL Ur Barbiturates Screen Not Detected (Not Detect) Ur Phencyclidine Scrn Not Detected (Not Detect) Ur Amphetamines Screen Not Detected (Not Detect) U Benzodiazepines Scrn Not Detected (Not Detect) Urine Cocaine Screen POSITIVE H (Not Detect) U Marijuana (THC) Screen POSITIVE H (Not Detect) Ethyl Alcohol mg/dL Influenza Type A (PCR) (Negative) Influenza Type B (PCR) (Negative) RSV RNA Qual (PCR) (Negative) SARS-CoV-2 RNA (RT-PCR) (Negative) Discharge Plan Discharge Clinical Impression: Polysubstance abuse, Acute psychosis, [place] Patient Disposition: Admitted As Inpatient Interventions: Admission Worksheet (ED) Last Done: 09/08/22 23:15 Discharge Date/Time: 09/08/22 23:16
[2022-09-07 20:11] VITALS: BP 148/78; PULSE 98; RESP 18; TEMP 36.8; O2SAT 99; BMI 27.3
--- NOTE | 2022-09-07 20:13 | ED_ITS ---
HPI - Psych General Chief Complaint: Psychiatric Symptoms Stated Complaint: Crisis/Paranoid Time Seen by Provider: 09/07/22 20:13 Source: patient and family Mode of arrival: ambulatory Limitations: altered mental status History of Present Illness HPI Narrative: Mother presents with 42-year-old son for manic behavior. Patient is on able to answer any questions, is paranoid, experiencing auditory hallucinations, and is very anxious. Patient is pacing, mumbling, and hyper focused on his belongings. MD complaint: anxiety and hallucinations Onset (ago): week(s) (2) Duration: constant and getting worse History of same: Yes Relieving factors: none Associated psychiatric symptoms: auditory hallucinations, visual hallucinations and delusions Related Data Previous Rx's Medication Instructions Recorded albuterol sulfate 90 mcg/actuation 2 puff inhalation Q4-6H PRN 08/07/22 aerosol inhaler (Proventil HFA) Shortness Of Breath #8.5 grams famotidine 20 mg tablet 20 mg PO BEDTIME #30 tabs 08/07/22 zolpidem 5 mg tablet 5 mg PO BEDTIME PRN sleep #14 tabs 08/07/22 Allergies Allergy/AdvReac Type Severity Reaction Status Date / Time No Known Allergies Allergy Verified 08/07/22 11:04 Review of Systems Review of Systems: Yes Unobtainable due to mental status PMFSH Past Medical History Attestation statement: The following information was validated with the patient. Source: old records reviewed Medical History Alcohol abuse Alopecia Asthma GERD (gastroesophageal reflux disease) Insomnia Marijuana smoker Polysubstance abuse Surgical History Hx of appendectomy Family History Family History Father Lung cancer Mother CVA (cerebral vascular accident) Diabetic acetonemia Brother Multiple sclerosis Sister Multiple sclerosis Maternal Aunt Skin cancer Social History Social History Household Members: Family Housing: Apartment Are you a primary wild animal caretaker to a significant other at home: No Do you presently have visiting nurse or other home services: No Alcohol intake: current Alcohol intake frequency: a few times a week Patient Tobacco Use Status: Former Tobacco user Tobacco use type: Cigarette Years Smoked: quit 06/2021 Smoked in Last 30 Days: Yes e-Cigarette/Vaping Use: Never Used Second Hand Smoke Exposure: No Use of substances other than those prescribed or required for medical reasons: Yes Substance Use Type: Crack/Cocaine and Marijuana Advance Directives: No Advance Directives Information Provided: Yes service: No Current occupational status: employed and unemployed Cognitive needs: No Hearing needs: No Vision needs: No Physical Exam Vital Signs: Vital Signs: Last Vital Signs Temp 97.8 F 09/08/22 01:00 Pulse 98 09/08/22 01:00 Resp 16 09/08/22 01:00 BP 155/87 H 09/08/22 01:00 Pulse Ox 98 09/08/22 01:00 O2 Del Method 09/08/22 01:00 BMI result Body Mass Index 27.3 Appearance: Alert. Oriented to self. Severe emotional distress. Manic and paranoid. Eyes: Pupils equal, round and reactive to light. ENT: Pharynx normal. Neck: Normal inspection. Neck supple. CVS: Normal heart rate and rhythm. Pulses normal. Respiratory: No respiratory distress. Breath sounds normal. Abdomen: Soft and nontender. Skin: Skin warm and dry. Normal skin color. Normal skin turgor. Extremities: Gait is balanced and coordinated. Neuro: No motor deficit. No sensory deficit. Cranial nerves 2-12 intact Course Course Course Narrative: Mother presents with 42-year-old son, states that he is manic, paranoid, delusional, and has been this way for the past 2 weeks. Patient states that people are out to get him, that he needs his stuff, and that people are watching him. Patient is not able to answer any questions, is pacing, and is difficult to redirect. This DECORATING EQUIPMENT SETTER was able to help him get undressed with his mother, and global climate change researcher in to appropriate psychiatric unit clothing. Mother states that he does have a history of substance abuse, and does not know if he has used anything over the past few days. She reports that his behavior is bizarre, and is concerned for his safety. 00:00 it is noted the patient does have an elevated white count of 22.7, patient's lung sounds are clear, COVID influenza SARs and urinalysis are pending. Drug panel is pending. Patient does not appear septic, I do feel that this elevated white count may be reactive. 01:00 patient moved to the psychiatric unit, patient is difficult to redirect, patient requires the IM sedation. While patient is not directly harming himself or others, patient is manic, pacing, and according to his mother has not slept in days. BHN and psychiatric consult are pending, physician observation at this time. Medications Administered Discontinued Medications Generic Name Dose Route Start Last Admin Trade Name Irais PRN Reason Stop Dose Admin Lorazepam 1 mg 09/07/22 19:46 09/07/22 20:20 Lorazepam 1 Mg Tablet PO 09/07/22 19:47 Not Given ONCE ONE Olanzapine 10 mg 09/08/22 00:29 09/08/22 00:45 Olanzapine 10 Mg Vial IM 09/08/22 00:30 10 mg ONCE ONE Administration MDM - Psych MDM Narrative Medical decision making narrative: 00:28 patient moved to the psychiatric unit. Patient is resistant, stating that he would like to leave, unable to redirect. Order for IM Zyprexa 10 mg and behavioral restraints. Mother has been at this patient's bedside throughout his entire duration here and agrees with this plan. Differential Diagnosis Differential diagnosis: Likely acute psychosis, drug-induced psychotic disorder, post-traumatic stress disorder, substance abuse and schizoaffective disorder Medical Records Attestation: I reviewed the patient's medical records. Lab Data Attestation: I reviewed the patient's lab results. Result diagrams: 09/07/22 23:47 09/07/22 23:47 Labs: Lab Results 09/07/22 09/07/22 Range/Units 23:47 23:47 WBC 22.7 H (4.8-10.8) X10*3/uL RBC 5.10 (4.60-5.80) X10*6/uL Hgb 15.4 (14.0-18.0) g/dl Hct 45.8 (42.0-52.0) % MCV 89.8 (80.0-98.0) fL MCH 30.2 (27.0-33.0) pg MCHC 33.6 (31.0-36.0) g/dl RDW 13.9 (11.0-16.0) % Plt Count 483 H (160-400) X10*3/uL MPV 9.9 (9.4-12.4) fL Immature Gran % (Auto) 0.5 H (0.0-0.4) % Neut % (Auto) 87.3 H (45-73) % Lymph % (Auto) 5.3 L (20-40) % [place] % (Auto) 5.9 (2-11) % Eos % (Auto) 0.4 (0-4) % Baso % (Auto) 0.6 (0-2) % Lymph # (Auto) 1.2 (1.2-4.9) X10*3/uL [place] # (Auto) 1.3 H (0.1-1.2) X10*3/uL Eos # (Auto) 0.1 (0.0-0.4) X10*3/uL Baso # (Auto) 0.1 (0.0-0.2) X10*3/uL Abs Immat Gran (auto) 0.11 H (0.00-0.03) X10*3/uL Absolute Neuts (auto) 19.8 H (2.0-8.3) x10*3/uL Absolute Nucleated RBC 0.000 (0.0-0.012) X10*3/uL Nucleated RBC % (auto) 0.0 (0.0-0.2) /100WBC Sodium 138 (135-145) mmol/L Potassium 4.4 (3.3-5.1) mmol/L Chloride 102 (96-108) mmol/L Carbon Dioxide 23 (22-29) mmol/L Anion Gap 17 (12-20) BUN 12 (9-16) mg/dL Creatinine 1.13 (0.5-1.4) mg/dL Estim Creat Clear Calc 87.7 Estimated GFR > 60 Random Glucose 142 H D (60-115) mg/dL Calcium 10.7 H D (8.4-10.2) mg/dL Total Bilirubin 0.4 (0.0-1.0) mg/dL AST 20 (5-37) U/L ALT 20 (0-40) U/L Alkaline Phosphatase 74 D (39-117) U/L Total Protein 8.8 H (6.5-8.0) g/dL Albumin 5.4 H (3.5-5.0) g/dL Salicylates < 5.0 L (15-30) mg/dL Acetaminophen < 1 (<30) mcg/mL Ethyl Alcohol < 10 mg/dL Discharge Plan Discharge Clinical Impression: Polysubstance abuse, Acute psychosis, [place] Patient Disposition: Still a Patient Prescriptions: No Action albuterol sulfate [Proventil HFA] 90 mcg/actuation HFA aerosol inhaler 2 puff inhalation Q4-6H PRN (Reason: Shortness Of Breath) Qty: 8.5 0RF famotidine 20 mg tablet 20 mg PO BEDTIME Qty: 30 3RF zolpidem 5 mg tablet 5 mg PO BEDTIME PRN (Reason: sleep) Qty: 14 0RF Interventions: [place]-Suicide Risk Severity Scale Last Done: 09/07/22 21:55
--- NOTE | 2022-09-07 20:53 | PHA.MEDREC ---
Pharmacy Consult ? Medication Reconciliation Pharmacy has completed the medication reconciliation. Patient would not respond to me or his mom. Mother was unsure. Med rec done by claim history. Alannah Roberts, SilviaD
[2022-09-07 21:55] VITALS: BP 141/92; PULSE 86; RESP 20; TEMP 35.9; O2SAT 96
[2022-09-07 23:53] LABS: Basophils Absolute Auto 0.1 X10*3/uL (0.0-0.2); Basophils Percent Auto 0.6 % (0-2); Eosinophils Absolute Auto 0.1 X10*3/uL (0.0-0.4); Eosinophils Percent Auto 0.4 % (0-4); Hematocrit 45.8 % (42.0-52.0); Hemoglobin 15.4 g/dl (14.0-18.0); Imm Gran Abs Auto 0.11 X10*3/uL (0.00-0.03); Imm Gran Pct Auto 0.5 % (0.0-0.4); Lymphocytes Absolute Auto 1.2 X10*3/uL (1.2-4.9); Lymphocytes Percent Auto 5.3 % (20-40); MANUAL DIFF FLAG NO; Mean Corpuscular HGB Conc 33.6 g/dl (31.0-36.0); Mean Corpuscular Hemoglobin 30.2 pg (27.0-33.0); Mean Corpuscular Volume 89.8 fL (80.0-98.0); Mean Platelet Volume 9.9 fL (9.4-12.4); Monocytes Absolute Auto 1.3 X10*3/uL (0.1-1.2); Monocytes Percent Auto 5.9 % (2-11); Neutrophils Absolute Auto 19.8 x10*3/uL (2.0-8.3); Neutrophils Percent Auto 87.3 % (45-73); Platelet Count 483 X10*3/uL (160-400); Red Cell Distribution Width 13.9 % (11.0-16.0); White Blood Count 22.7 X10*3/uL (4.8-10.8)
--- NOTE | 2022-09-08 | ECG_ITS ---
Test Reason : ASSESS QT INTERVAL Blood Pressure : / mmHG Vent. Rate : 085 BPM Atrial Rate : 085 BPM P-R Int : 102 ms QRS Dur : 104 ms QT Int : 372 ms P-R-T Axes : 077 066 048 degrees QTc Int : 442 ms Sinus rhythm with short KS Minimal voltage criteria for LVH, may be normal variant ( Sokolow-Ibanez ) RSR' or QR pattern in V1 suggests right ventricular conduction delay Nonspecific ST abnormality Abnormal ECG When compared with ECG of 05-OCT-2018 17:59, T wave amplitude has decreased in Anterolateral leads ST more depressed Inferior leads Referred By: Manjit Sandoval Electronically Signed By:ELBA ACHARYA MD
[2022-09-08 00:19] LABS: Acetaminophen LAB < 1 mcg/mL (<30); Alanine Aminotransferase 20 U/L (0-40); Albumin Level 5.4 g/dL (3.5-5.0); Alkaline Phosphatase 74 U/L (39-117); Anion Gap 17 (12-20); Aspartate Amino Transferase 20 U/L (5-37); Bilirubin Total 0.4 mg/dL (0.0-1.0); Blood Urea Nitrogen 12 mg/dL (9-16); Calcium 10.7 mg/dL (8.4-10.2); Carbon Dioxide 23 mmol/L (22-29); Chloride 102 mmol/L (96-108); Creatinine Clr Calc Pharmacy 87.7; Estimated Glomerular Filt Rate > 60; Ethanol < 10 mg/dL; Glucose Random 142 mg/dL (60-115); Potassium 4.4 mmol/L (3.3-5.1); Salicylate < 5.0 mg/dL (15-30); Sodium 138 mmol/L (135-145); Total Protein 8.8 g/dL (6.5-8.0)
[2022-09-08 00:45] VITALS: RESP 18
[2022-09-08] MEDS: OLANZapine 10 MG VIAL IM (00:45)
--- NOTE | 2022-09-08 00:51 | SUR.OPER ---
Patient just got transferred from main ED due to high risk of elopement, patient is disoriented, engages in self dialoguing, thought process disorganized, refusing all PRN medication, Olanzapine 10 mg IM ordered by the provider, administered as ordered/pending effect, patient is oberved on 1:1 per safety protocol, will continue to monitor
[2022-09-08 01:00] VITALS: BP 155/87; PULSE 98; RESP 16; TEMP 36.6; O2SAT 98
[2022-09-08 01:15] VITALS: RESP 16
[2022-09-08 01:30] VITALS: RESP 16
[2022-09-08 01:45] VITALS: RESP 16
[2022-09-08 02:31] LABS: Influenza A PCR NEGATIVE (Negative); Influenza B PCR NEGATIVE (Negative); Resp Syncy Virus RNA Qual PCR NEGATIVE (Negative); SARS COV2 PCR INHOUSE NEGATIVE (Negative)
--- NOTE | 2022-09-08 06:03 | PC.NURSE ---
Patient responded well to Olanzapine, slept through the night, BHN referral completed/confirmed/pending ETA, VSS, med rec completed/pending provider's/approval, will continue to monitor.
--- NOTE | 2022-09-08 07:16 | PC.NURSE ---
patient appears to remain asleep at present respirations are even and unlabored patient appears in no distress
[2022-09-08 15:24] LABS: Amphetamine Screen Urine Not Detected (Not Detect); Barbiturates, Urine Not Detected (Not Detect); Benzodiazepines Screen Urine Not Detected (Not Detect); Cannabinoid Screen Urine POSITIVE (Not Detect); Cocaine Screen Urine POSITIVE (Not Detect); Fentanyl, urine POSITIVE (Not Detect); Opiate Screen Urine Not Detected (Not Detect); Phencyclidine Screen Urine Not Detected (Not Detect)
[2022-09-08 16:37] LABS: MANUAL DIFF FLAG NO
[2022-09-08 16:44] LABS: Basophils Absolute Auto 0.1 X10*3/uL (0.0-0.2); Basophils Percent Auto 1.3 % (0-2); Eosinophils Absolute Auto 0.4 X10*3/uL (0.0-0.4); Eosinophils Percent Auto 5.3 % (0-4); Hematocrit 42.9 % (42.0-52.0); Imm Gran Abs Auto 0.03 X10*3/uL (0.00-0.03); Imm Gran Pct Auto 0.4 % (0.0-0.4); Lymphocytes Absolute Auto 1.9 X10*3/uL (1.2-4.9); Lymphocytes Percent Auto 22.9 % (20-40); Mean Corpuscular HGB Conc 32.6 g/dl (31.0-36.0); Mean Corpuscular Hemoglobin 29.5 pg (27.0-33.0); Mean Corpuscular Volume 90.3 fL (80.0-98.0); Neutrophils Absolute Auto 4.7 x10*3/uL (2.0-8.3); Neutrophils Percent Auto 58.1 % (45-73); Platelet Count 422 X10*3/uL (160-400); Red Blood Count 4.75 X10*6/uL (4.60-5.80); Red Cell Distribution Width 14.1 % (11.0-16.0); White Blood Count 8.2 X10*3/uL (4.8-10.8)
[2022-09-08 22:45] VITALS: BP 126/76; PULSE 80; RESP 18; TEMP 36.6; O2SAT 96
--- NOTE | 2022-09-09 06:03 | PC.ADMIT ---
Addendum entered by Ashly Perera RN 09/09/22 07:57: ADDENDUM: Pt reports +AH and +SI vague in nature at this time 0745. Reports the voices are telling him that he is in danger. Pt contracts for safety. Will continue to monitor. Original Note: Admission Note for 09/08/22: Pt arrived on the unit at [address] [facility] via w/c. Pt is a 42 yo male on a CV for SI with no plan, delusions, increasing paranoia, believes people are after him, increasing substance abuse use, and no sleep for several days. UDS+ for cocaine, marijuana (THC) and Fentanyl. Pt denies smoking marijuana cigarettes. Admits to drinking 6 beers 2-3x/wk. No s/s of withdrawal. Pt initially stated he lives with mother and then reports that he is homeless. Poor historian. PMH:asthma, reports recently diagnosed with depression, anxiety and schizophrenia in February 2022. Denies having a psychiatrist and reports that he has a therapist. Denies SI/HI/AH/VH. Pt cooperative with admission process. NAD. Will continue to monitor
[2022-09-09 07:52] VITALS: BMI 21.2
[2022-09-09] MEDS: Divalproex Sodium 250 MG TABLET.DR PO (09:17)
[2022-09-09 10:09] VITALS: BP 116/74; PULSE 85; RESP 15; TEMP 36.9; O2SAT 95
[2022-09-09 10:50] LABS: Estimated Average Glucose 103 mg/dL; Hemoglobin A1c % 5.2 %
[2022-09-09 11:00] LABS: Cholesterol 148 mg/dL; HDL Cholesterol 29 mg/dL; LDL Cholesterol Calculated 98 mg/dl; Magnesium 2.3 mg/dL (1.6-2.6); Triglycerides 108 mg/dL
[2022-09-09 11:12] LABS: Free T4 (Free Thyroxine) 1.01 ng/dL (0.71-1.85); Thyroid Stimulating Hormone 1.25 uIU/mL (0.32-4.0)
[2022-09-09 12:44] LABS: Folate 10.5 ng/mL (> or = 4.0); Vitamin B12 539 pg/mL (200-900)
--- NOTE | 2022-09-09 17:25 | HO.PSYADMNOT ---
HPI Date of Service: 09/09/22 Chief Complaint: Bipolar D/O brittany with psychosis,Polysubstance Use HPI Narrative: pt reported to market research worker he has been using a lot of cocaine recently and has been awake for the past 3 days, experiencing AH and paranoia. his mother brought him to the hospital for evaluation. per ED nurse, pt was chemically restrained at one point in his stay due to his being delusional, manic, paranoid, and under the influence of cocaine. on interview with pt is calm and cooperative. he refers to [my] schizophrenia repeatedly, yet also states he has never been diagnosed with the disorder. states he has been using cocaine daily yet does not appreciate the link between cocaine use and psychotic symptoms. MD educates pt, informing him that 3-6 months of sobriety is needed prior to consideration of a diagnosis of schizophrenia. MD agrees to prescribe antipsychotic for the short term to control Sx and alleviate suffering. will allow pt to get through cocaine withdrawal and monito Sx daily. Past Psychiatric History: therapy [facility], weekly. no prescriber. h/o 1 psych hosp for several days only at [place], per pt. denies h/o SA, SIB. Medical Evaluation Reviewed: Yes [facility] Medical History Alcohol abuse Alopecia Asthma GERD (gastroesophageal reflux disease) Insomnia Marijuana smoker Polysubstance abuse Surgical History Hx of appendectomy Family History: mother - bipolar disorder and anxiety brother - addiction Social History: born and raised in [place]. raised by both parents. one bro and one sis. HS grad and completed one year of college. single, never . has one son who is 19 yo with whom he has minimal contact. currently unemployed. no income currently, does have food stamps. lives with mother. Substance History: cocaine - first used at 19 yo. uses daily, up to hospitalization. alcohol - first use at 14 yo. h/o daily use, pt doesn't know how much he has been drinking recently. vaping - vapes daily, no other info provided. cannabis - h/o use opiates - h/o use pt has h/o IOP and detox for substance use disorders. Trauma History: denies Diagnostics Vital Signs (24Hr): Vital Signs - 24 hr 09/08/22 22:45 09/09/22 10:09 Temperature 97.9 F 98.4 F Pulse Rate 80 85 Respiratory Rate 18 15 Blood Pressure 126/76 116/74 Pulse Oximetry 96 95 Oxygen Delivery Method Room Air Room Air BMI result Body Mass Index 21.2 Labs Results: 09/08/22 16:33 09/07/22 23:47 Labs: Laboratory Results - last 48 hr 09/07/22 09/07/22 09/08/22 23:47 23:47 01:48 WBC 22.7 H RBC 5.10 Hgb 15.4 Hct 45.8 MCV 89.8 MCH 30.2 MCHC 33.6 RDW 13.9 Plt Count 483 H MPV 9.9 Immature Gran % (Auto) 0.5 H Neut % (Auto) 87.3 H Lymph % (Auto) 5.3 L [place] % (Auto) 5.9 Eos % (Auto) 0.4 Baso % (Auto) 0.6 Lymph # (Auto) 1.2 [place] # (Auto) 1.3 H Eos # (Auto) 0.1 Baso # (Auto) 0.1 Abs Immat Gran (auto) 0.11 H Absolute Neuts (auto) 19.8 H Absolute Nucleated RBC 0.000 Nucleated RBC % (auto) 0.0 Sodium 138 Potassium 4.4 Chloride 102 Carbon Dioxide 23 Anion Gap 17 BUN 12 Creatinine 1.13 Estim Creat Clear Calc 87.7 Estimated GFR > 60 Random Glucose 142 H D Estimat Average Glucose Hemoglobin A1c % Calcium 10.7 H D Magnesium Total Bilirubin 0.4 AST 20 ALT 20 Alkaline Phosphatase 74 D Total Protein 8.8 H Albumin 5.4 H Triglycerides Cholesterol LDL Cholesterol, Calc HDL Cholesterol Vitamin B12 Folate TSH Free T4 Salicylates < 5.0 L Urine Opiates Screen Urine Fentanyl Screen Acetaminophen < 1 Ur Barbiturates Screen Ur Phencyclidine Scrn Ur Amphetamines Screen U Benzodiazepines Scrn Urine Cocaine Screen U Marijuana (THC) Screen Ethyl Alcohol < 10 Influenza Type A (PCR) NEGATIVE Influenza Type B (PCR) NEGATIVE RSV RNA Qual (PCR) NEGATIVE SARS-CoV-2 RNA (RT-PCR) NEGATIVE 09/08/22 09/08/22 09/09/22 14:56 16:33 09:46 WBC 8.2 RBC 4.75 Hgb 14.0 Hct 42.9 MCV 90.3 MCH 29.5 MCHC 32.6 RDW 14.1 Plt Count 422 H MPV 10.0 Immature Gran % (Auto) 0.4 Neut % (Auto) 58.1 Lymph % (Auto) 22.9 [place] % (Auto) 12.0 H Eos % (Auto) 5.3 H Baso % (Auto) 1.3 Lymph # (Auto) 1.9 [place] # (Auto) 1.0 Eos # (Auto) 0.4 Baso # (Auto) 0.1 Abs Immat Gran (auto) 0.03 Absolute Neuts (auto) 4.7 Absolute Nucleated RBC 0.000 Nucleated RBC % (auto) 0.0 Sodium Potassium Chloride Carbon Dioxide Anion Gap BUN Creatinine Estim Creat Clear Calc Estimated GFR Random Glucose Estimat Average Glucose 103 Hemoglobin A1c % 5.2 Calcium Magnesium Total Bilirubin AST ALT Alkaline Phosphatase Total Protein Albumin Triglycerides Cholesterol LDL Cholesterol, Calc HDL Cholesterol Vitamin B12 Folate TSH Free T4 Salicylates Urine Opiates Screen Not Detected Urine Fentanyl Screen POSITIVE H Acetaminophen Ur Barbiturates Screen Not Detected Ur Phencyclidine Scrn Not Detected Ur Amphetamines Screen Not Detected U Benzodiazepines Scrn Not Detected Urine Cocaine Screen POSITIVE H U Marijuana (THC) Screen POSITIVE H Ethyl Alcohol Influenza Type A (PCR) Influenza Type B (PCR) RSV RNA Qual (PCR) SARS-CoV-2 RNA (RT-PCR) 09/09/22 09/09/22 09:46 09:46 WBC RBC Hgb Hct MCV MCH MCHC RDW Plt Count MPV Immature Gran % (Auto) Neut % (Auto) Lymph % (Auto) [place] % (Auto) Eos % (Auto) Baso % (Auto) Lymph # (Auto) [place] # (Auto) Eos # (Auto) Baso # (Auto) Abs Immat Gran (auto) Absolute Neuts (auto) Absolute Nucleated RBC Nucleated RBC % (auto) Sodium Potassium Chloride Carbon Dioxide Anion Gap BUN Creatinine Estim Creat Clear Calc Estimated GFR Random Glucose Estimat Average Glucose Hemoglobin A1c % Calcium Magnesium 2.3 Total Bilirubin AST ALT Alkaline Phosphatase Total Protein Albumin Triglycerides 108 Cholesterol 148 LDL Cholesterol, Calc 98 HDL Cholesterol 29 Vitamin B12 539 Folate 10.5 TSH 1.25 Free T4 1.01 Salicylates Urine Opiates Screen Urine Fentanyl Screen Acetaminophen Ur Barbiturates Screen Ur Phencyclidine Scrn Ur Amphetamines Screen U Benzodiazepines Scrn Urine Cocaine Screen U Marijuana (THC) Screen Ethyl Alcohol Influenza Type A (PCR) Influenza Type B (PCR) RSV RNA Qual (PCR) SARS-CoV-2 RNA (RT-PCR) Meds/Allergies Allergies Allergies Allergy/AdvReac Type Severity Reaction Status Date / Time No Known Allergies Allergy Verified 08/07/22 11:04 Mental Status Exam Mental Status Exam Narrative: calm, cooperative. adequately dressed and groomed. no PMA/PMR. speech soft with decr prosody. nml rate, amount. thoughts linear and logical. affect constricted. mood all right. no SI/HI/VH. endorses AH of voices trying to expose me... trying to bring me down. unable to quote voices. Assessment & Plan Assessment & Plan (1) Psychotic disorder due to psychoactive substance: Status: Acute Code(s): F19.959 - Other psychoactive substance use, unspecified with psychoactive substance-induced psychotic disorder, unspecified (2) Polysubstance abuse: Status: Acute Code(s): F19.10 - Other psychoactive substance abuse, uncomplicated Plan abstain from cocaine. provide zyprexa for paranoid delusions and AH. refer for substance abuse treatment. Patient educated on: diagnosis, medication risk/benefits and substance abuse Reason for continued inpatient stay Substantial Risk for: rapid decompensation Statement Statement: I have reviewed the history and physical and performed a pertinent examination on my patient. No changes have occurred unless specified.
[2022-09-09 20:15] VITALS: BP 137/86; PULSE 86; TEMP 36.8; O2SAT 96
[2022-09-09] MEDS: Famotidine 20 MG TABLET PO (22:26)
[2022-09-09] MEDS: OLANZapine ODT 10 MG TAB.RAPDIS TRANSLINGU (22:26)
--- NOTE | 2022-09-10 02:28 | PC.NURSE ---
3 day notice-late entry-notice placed on behalf of patient on 09/08/22. upon entry to unit on day of admission requesting to leave. when offered 3 day notice stated ''I don't want to sign anything, I just want to leave''
[2022-09-10 07:00] VITALS: BMI 21.7
--- NOTE | 2022-09-10 13:39 | HO.PSYCHPN ---
Subjective Subjective Date of Service: 09/10/22 Reason For Visit: Bipolar D/O brittany with psychosis,Polysubstance Use Interim History: repetitively requesting discharge today, repeatedly informed discharge will be tomorrow. states he is not comfortable here and that his mother will take him home. informed pt to contact his mother and arrange for a time for her to come pick him up tomorrow. pt provided with copies of his CV and 3-day notice. denies safety concerns and says his mood is good, but appears anxious and likely a poor historian due to desire to discharge. per staff, isolative, quiet. slept in a side room. suspicious. AH, racing thoughts. anx/dep 7 and 8. paranoid later in jeri, slept well. Mental Status Exam Mental Status Exam Narrative: calm, cooperative. adequately dressed and groomed. no PMA/PMR. speech soft with decr prosody. nml rate, incr amount, decr latency. thoughts perseverative. affect constricted. mood good. no SI/HI/VH. reports AH sometimes. Diagnostics Vital Signs (24Hr): Vital Signs - 24 hr 09/09/22 20:15 Temperature 98.2 F Pulse Rate 86 Blood Pressure 137/86 Pulse Oximetry 96 Oxygen Delivery Method Room Air BMI result Body Mass Index 21.7 Labs Results: 09/08/22 16:33 09/07/22 23:47 Labs: Laboratory Results - last 48 hr 09/08/22 09/08/22 09/09/22 14:56 16:33 09:46 WBC 8.2 RBC 4.75 Hgb 14.0 Hct 42.9 MCV 90.3 MCH 29.5 MCHC 32.6 RDW 14.1 Plt Count 422 H MPV 10.0 Immature Gran % (Auto) 0.4 Neut % (Auto) 58.1 Lymph % (Auto) 22.9 [place] % (Auto) 12.0 H Eos % (Auto) 5.3 H Baso % (Auto) 1.3 Lymph # (Auto) 1.9 [place] # (Auto) 1.0 Eos # (Auto) 0.4 Baso # (Auto) 0.1 Abs Immat Gran (auto) 0.03 Absolute Neuts (auto) 4.7 Absolute Nucleated RBC 0.000 Nucleated RBC % (auto) 0.0 Estimat Average Glucose 103 Hemoglobin A1c % 5.2 Magnesium Triglycerides Cholesterol LDL Cholesterol, Calc HDL Cholesterol Vitamin B12 Folate TSH Free T4 Urine Opiates Screen Not Detected Urine Fentanyl Screen POSITIVE H Ur Barbiturates Screen Not Detected Ur Phencyclidine Scrn Not Detected Ur Amphetamines Screen Not Detected U Benzodiazepines Scrn Not Detected Urine Cocaine Screen POSITIVE H U Marijuana (THC) Screen POSITIVE H 09/09/22 09/09/22 09:46 09:46 WBC RBC Hgb Hct MCV MCH MCHC RDW Plt Count MPV Immature Gran % (Auto) Neut % (Auto) Lymph % (Auto) [place] % (Auto) Eos % (Auto) Baso % (Auto) Lymph # (Auto) [place] # (Auto) Eos # (Auto) Baso # (Auto) Abs Immat Gran (auto) Absolute Neuts (auto) Absolute Nucleated RBC Nucleated RBC % (auto) Estimat Average Glucose Hemoglobin A1c % Magnesium 2.3 Triglycerides 108 Cholesterol 148 LDL Cholesterol, Calc 98 HDL Cholesterol 29 Vitamin B12 539 Folate 10.5 TSH 1.25 Free T4 1.01 Urine Opiates Screen Urine Fentanyl Screen Ur Barbiturates Screen Ur Phencyclidine Scrn Ur Amphetamines Screen U Benzodiazepines Scrn Urine Cocaine Screen U Marijuana (THC) Screen Medications Medications Current Medications Acetaminophen (Acetaminophen 325 Mg Tablet) 650 mg PO Q6H PRN PRN Reason: Headache/Pain Mild Scale (1-3) Al Hydroxide/Mg Hydroxide (Magnesium Hydrox/Alum Hydrox 30 Ml Oral.Susp) 30 ml PO Q6H PRN PRN Reason: Heartburn/Nausea Albuterol Sulfate (Albuterol Sulfate 90 Mcg 8 Gm Inhaler) 2 puff INHALE RQ4H PRN PRN Reason: Shortness Of Breath Clonidine HCl (Clonidine Hcl 0.1 Mg Tablet) 0.1 mg PO BID PRN; Protocol PRN Reason: anxiety Famotidine (Famotidine 20 Mg Tablet) 20 mg PO BEDTIME АННА Last Admin: 09/09/22 22:26 Dose: 20 mg Haloperidol (Haloperidol 5 Mg Tablet) 5 mg PO TID PRN PRN Reason: Psychosis Hydroxyzine HCl (Hydroxyzine Hcl 25 Mg Tablet) 25 mg PO Q6H PRN PRN Reason: Anxiety Lorazepam (Lorazepam 1 Mg Tablet) 1 mg PO Q4H PRN PRN Reason: anxiety, agitation Magnesium Hydroxide (Milk Of Magnesia 30 Ml Oral.Susp) 30 ml PO DAILY PRN PRN Reason: Constipation Olanzapine (Olanzapine Odt 10 Mg Tab.Rapdis) 10 mg TRANSLINGU BEDTIME АННА Last Admin: 09/09/22 22:26 Dose: 10 mg Trazodone HCl (Trazodone Hcl 50 Mg Tablet) 50 mg PO BEDTIME PRN PRN Reason: Insomnia Allergies Allergies Allergy/AdvReac Type Severity Reaction Status Date / Time No Known Allergies Allergy Verified 08/07/22 11:04 Assessment & Plan Assessment & Plan (1) Psychotic disorder due to psychoactive substance: Status: Acute Code(s): F19.959 - Other psychoactive substance use, unspecified with psychoactive substance-induced psychotic disorder, unspecified (2) Polysubstance abuse: Status: Acute Code(s): F19.10 - Other psychoactive substance abuse, uncomplicated Plan abstain from cocaine. provide zyprexa for paranoid delusions and AH. refer for substance abuse treatment. 3-day notice matures 09/10; planning to discharge as pt does not appear a threat to himself or others at the moment. continues paranoid and with AH. I spent __25____ minutes with the patient and/or on the patient floor today, greater than?50% of which was spent counseling/coordinating care. Reason for contiued inpatient stay Substantial Risk for: inability to function and rapid decompensation
[2022-09-10 20:25] VITALS: BP 143/88; PULSE 85; RESP 16; TEMP 36.8; O2SAT 98
[2022-09-10] MEDS: Famotidine 20 MG TABLET PO (22:24)
[2022-09-10] MEDS: OLANZapine ODT 10 MG TAB.RAPDIS TRANSLINGU (22:24)
[2022-09-10] MEDS: hydrOXYzine HCL 25 MG TABLET PO (22:28)
[2022-09-11 10:25] VITALS: BP 136/82; PULSE 85; RESP 17; TEMP 36.7; O2SAT 99
--- NOTE | 2022-09-11 10:39 | P.DS_ITS ---
DS: Providers Provider Date of Service: 09/11/22 Date of admission: 09/08/22 23:07 Primary care physician: Unknown Physician DS: Diagnosis Discharge Diagnosis (1) Psychotic disorder due to psychoactive substance: Status: Acute (2) Polysubstance abuse: Status: Acute DS: Medications Discharge Medications Home Medications: Previous Rx's Medication Instructions Recorded albuterol sulfate 90 mcg/actuation 2 puff inhalation Q4-6H PRN 08/07/22 aerosol inhaler (Proventil HFA) Shortness Of Breath #8.5 grams famotidine 20 mg tablet 20 mg PO BEDTIME 30 days #30 tabs 09/11/22 olanzapine 10 mg tablet 10 mg PO BEDTIME 30 days #30 tabs 09/11/22 Mental Status Exam Mental Status Exam Narrative: calm, cooperative. adequately dressed and groomed. no PMA/PMR. speech soft with decr prosody. nml rate, incr amount, decr latency. thoughts linear and logical in superficial interaction. affect constricted. mood all right. no SI/HI/VH. reports most recent AH were 3 days ago. Data Data Completed and Pending Completed studies during hospitalization [Text1]: 09/07/22 09/07/22 09/08/22 23:47 23:47 01:48 WBC 22.7 H RBC 5.10 Hgb 15.4 Hct 45.8 MCV 89.8 MCH 30.2 MCHC 33.6 RDW 13.9 Plt Count 483 H MPV 9.9 Immature Gran % (Auto) 0.5 H Neut % (Auto) 87.3 H Lymph % (Auto) 5.3 L [place] % (Auto) 5.9 Eos % (Auto) 0.4 Baso % (Auto) 0.6 Lymph # (Auto) 1.2 [place] # (Auto) 1.3 H Eos # (Auto) 0.1 Baso # (Auto) 0.1 Abs Immat Gran (auto) 0.11 H Absolute Neuts (auto) 19.8 H Absolute Nucleated RBC 0.000 Nucleated RBC % (auto) 0.0 Sodium 138 Potassium 4.4 Chloride 102 Carbon Dioxide 23 Anion Gap 17 BUN 12 Creatinine 1.13 Estim Creat Clear Calc 87.7 Estimated GFR > 60 Random Glucose 142 H D Estimat Average Glucose Hemoglobin A1c % Calcium 10.7 H D Magnesium Total Bilirubin 0.4 AST 20 ALT 20 Alkaline Phosphatase 74 D Total Protein 8.8 H Albumin 5.4 H Triglycerides Cholesterol LDL Cholesterol, Calc HDL Cholesterol Vitamin B12 Folate TSH Free T4 Salicylates < 5.0 L Urine Opiates Screen Urine Fentanyl Screen Acetaminophen < 1 Ur Barbiturates Screen Ur Phencyclidine Scrn Ur Amphetamines Screen U Benzodiazepines Scrn Urine Cocaine Screen U Marijuana (THC) Screen Ethyl Alcohol < 10 Influenza Type A (PCR) NEGATIVE Influenza Type B (PCR) NEGATIVE RSV RNA Qual (PCR) NEGATIVE SARS-CoV-2 RNA (RT-PCR) NEGATIVE 09/08/22 09/08/22 09/09/22 14:56 16:33 09:46 WBC 8.2 RBC 4.75 Hgb 14.0 Hct 42.9 MCV 90.3 MCH 29.5 MCHC 32.6 RDW 14.1 Plt Count 422 H MPV 10.0 Immature Gran % (Auto) 0.4 Neut % (Auto) 58.1 Lymph % (Auto) 22.9 [place] % (Auto) 12.0 H Eos % (Auto) 5.3 H Baso % (Auto) 1.3 Lymph # (Auto) 1.9 [place] # (Auto) 1.0 Eos # (Auto) 0.4 Baso # (Auto) 0.1 Abs Immat Gran (auto) 0.03 Absolute Neuts (auto) 4.7 Absolute Nucleated RBC 0.000 Nucleated RBC % (auto) 0.0 Sodium Potassium Chloride Carbon Dioxide Anion Gap BUN Creatinine Estim Creat Clear Calc Estimated GFR Random Glucose Estimat Average Glucose 103 Hemoglobin A1c % 5.2 Calcium Magnesium Total Bilirubin AST ALT Alkaline Phosphatase Total Protein Albumin Triglycerides Cholesterol LDL Cholesterol, Calc HDL Cholesterol Vitamin B12 Folate TSH Free T4 Salicylates Urine Opiates Screen Not Detected Urine Fentanyl Screen POSITIVE H Acetaminophen Ur Barbiturates Screen Not Detected Ur Phencyclidine Scrn Not Detected Ur Amphetamines Screen Not Detected U Benzodiazepines Scrn Not Detected Urine Cocaine Screen POSITIVE H U Marijuana (THC) Screen POSITIVE H Ethyl Alcohol Influenza Type A (PCR) Influenza Type B (PCR) RSV RNA Qual (PCR) SARS-CoV-2 RNA (RT-PCR) 09/09/22 09/09/22 09:46 09:46 WBC RBC Hgb Hct MCV MCH MCHC RDW Plt Count MPV Immature Gran % (Auto) Neut % (Auto) Lymph % (Auto) [place] % (Auto) Eos % (Auto) Baso % (Auto) Lymph # (Auto) [place] # (Auto) Eos # (Auto) Baso # (Auto) Abs Immat Gran (auto) Absolute Neuts (auto) Absolute Nucleated RBC Nucleated RBC % (auto) Sodium Potassium Chloride Carbon Dioxide Anion Gap BUN Creatinine Estim Creat Clear Calc Estimated GFR Random Glucose Estimat Average Glucose Hemoglobin A1c % Calcium Magnesium 2.3 Total Bilirubin AST ALT Alkaline Phosphatase Total Protein Albumin Triglycerides 108 Cholesterol 148 LDL Cholesterol, Calc 98 HDL Cholesterol 29 Vitamin B12 539 Folate 10.5 TSH 1.25 Free T4 1.01 Salicylates Urine Opiates Screen Urine Fentanyl Screen Acetaminophen Ur Barbiturates Screen Ur Phencyclidine Scrn Ur Amphetamines Screen U Benzodiazepines Scrn Urine Cocaine Screen U Marijuana (THC) Screen Ethyl Alcohol Influenza Type A (PCR) Influenza Type B (PCR) RSV RNA Qual (PCR) SARS-CoV-2 RNA (RT-PCR) DS: Summary Hospital Course Hospital Course: per 09/09 admission note: 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 his mother brought him to the hospital for evaluation.? per ED nurse, pt was chemically restrained at one point in his stay due to his being delusional, manic, paranoid, and under the influence of cocaine. on interview with pt is calm and cooperative.? he refers to [my] schizophrenia repeatedly, yet also states he has never been diagnosed with the disorder.? states he has been using cocaine daily yet does not appreciate the link between cocaine use and psychotic symptoms.? educates pt, informing him that 3-6 months of sobriety is needed prior to consideration of a diagnosis of schizophrenia.? agrees to prescribe antipsychotic for the short term to control Sx and alleviate suffering.? will allow pt to get through cocaine withdrawal and monito Sx daily. Past Psychiatric History: [facility], [facility].? no prescriber. h/o 1 psych hosp for several days only at [facility], per pt. denies h/o SA, SIB. Medical Evaluation Reviewed: Yes [facility] Medical History? Alcohol abuse Alopecia Asthma GERD (gastroesophageal reflux disease) Insomnia Marijuana smoker Polysubstance abuse Surgical History? Hx of appendectomy Family History: mother - bipolar disorder and anxiety brother - addiction Social History: born and raised in [place].? raised by both parents.? one bro and one sis.? HS grad and completed one year of college.? single, never .? has one son who is 19 yo with whom he has minimal contact.? currently unemployed.? no income currently, does have food stamps.? lives with mother. Substance History: cocaine - first used at 19 yo.? uses daily, up to hospita lization. alcohol - first use at 14 yo.? h/o daily use, pt doesn't know how much he has been drinking recently. vaping - vapes daily, no other info provided. ? cannabis - h/o use opiates - h/o use ? pt has h/o IOP and detox for substance use disorders. Trauma History: denies 09/10: repetitively requesting discharge today, repeatedly informed discharge will be tomorrow.? states he is not comfortable here and that his mother will take him home.? informed pt to contact his mother and arrange for a time for her to come pick him up tomorrow.? pt provided with copies of his CV and 3-day notice.? denies safety concerns and says his mood is good, but appears anxious and likely a poor historian due to desire to discharge.? per staff, isolative, quiet.? slept in a side room.? suspicious.? AH, racing thoughts.? anx/dep 7 and 8.? paranoid later in jeri, slept well. Precis: 09/09: abstain from cocaine. provide zyprexa for paranoid delusions and AH. refer for substance abuse treatment. 3-day notice matures 09/10; planning to discharge as pt does not appear a threat to himself or others at the moment. 09/10: continues paranoid and with AH. 09/11: continues paranoid, denies AH for the past 3 days (not c/w yesterday's report). referred for outpt F/U, discharged to home per his request as 3-day notice matures today. Time Spent with Patient Time attestation: Total time spent providing and/or coordinating discharge services: Time spent: Greater than 30 minutes Discharge Plan Discharge Anticipated Discharge Date/Time: 09/11/22 12:00 Patient Disposition: Home, Self-Care Discharge Diagnosis: Psychosis Secondary to Substance Use Polysubstance Use Disorder Referrals: Nadine Burris (Therapy) [Other] - 09/25/22 12:00 pm (IN OFFICE APPOINTMENT) Torres Lemons (Psychiatry) [Other] - 09/21/22 1:00 pm (IN OFFICE APPOINTMENT -Due to your vaccination status, you will need to wear an N-95 mask to this appointment. ) Po,Irasema Rain MD [Physician] - 09/24/22 9:00 am Discharge Medications: New olanzapine 10 mg tablet 10 mg PO BEDTIME 30 Days Qty: 30 0RF Continued famotidine 20 mg tablet 20 mg PO BEDTIME 30 Days Qty: 30 3RF albuterol sulfate [Proventil HFA] 90 mcg/actuation HFA aerosol inhaler 2 puff inhalation Q4-6H PRN (Reason: Shortness Of Breath) Qty: 8.5 0RF Discontinued zolpidem 5 mg tablet 5 mg PO BEDTIME PRN (Reason: sleep) Qty: 14 0RF Discharge Orders: Discharge Order (Routine); Ordered 09/11/22 Ordered By: Antonino Arellano Diet: Advance to usual diet Activity on Discharge: As tolerated Stand Alone Forms: Patient Portal Discharge page, Community Support Care Plan Goals: remain safe and sober in the outpatient treatment setting Health Concerns: none Plan of Treatment: take medications as prescribed, attend appointments as scheduled Assessment: not at imminent risk of harm to self or others Discharge Date/Time: 09/11/22 11:25
== END 2022-09-11 11:25 | disposition home or self-care (01) | DRG 774 ==
LOC: HO.ED 09-08 01:40 → HO.PADLT16 09-08 23:10
PROVIDERS: Nurse Practitioner Family; Physician Assistant; Registered Nurse; Social Worker; Admitting Provider Clinical Nurse Specialist Psychiatric/Mental Health, Adult; Emergency Provider Internal Medicine; Visit Provider Clinical Nurse Specialist Psychiatric/Mental Health, Adult
DX: F14.151 Cocaine abuse with cocaine-induced psychotic disorder with hallucinations (principal); J45.909 Unspecified asthma, uncomplicated; K21.9 Gastro-esophageal reflux disease without esophagitis; Z20.822 Contact with and (suspected) exposure to COVID-19; Z87.891 Personal history of nicotine dependence
CPT/HCPCS: 0241U; 36415; 80053; 80061; 80143; 80179; 80307; 82077; 82607; 82746; 83036; 83735; 84439; 84443; 85025; 93005; 99285

== ENCOUNTER 2023-08-20 10:02 | Outpatient (AMB) | payer OTHER, SELFPAY ==
[2023-08-20 10:28] VITALS: O2SAT 99; BMI 25.5
--- NOTE | 2023-08-20 10:28 | MHC.PC.OV ---
Vital Signs 08/20/23 10:28 Height 5 ft 3 in Weight 144 lb 2 oz BMI 25.5 Blood Pressure Location Lt brachial Position Sitting Pulse Source Pulse Oximeter Pulse Oximetry (%) 99 Oxygen Delivery Method Room Air Intake Visit Reasons: physical Intake Note: Patient is here today for a physical. 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: No Accompanied by: Self / Same As Patient Allergies No Known Allergies Allergy (Verified 08/20/23 10:33) Medication List - Last Reconciled 08/20/23 by Irasema Nugent MD albuterol sulfate 90 mcg/actuation (Ventolin HFA) 2 puffs PO Q4-6H PRN famotidine 20 mg PO BEDTIME 30 days olanzapine 10 mg PO BEDTIME 30 days perphenazine 4 mg PO BID zolpidem 10 mg PO BEDTIME PRN Tobacco use date assessed: 12/30/22 Dental Screening Dental Screen Date: 08/20/23 Did you have a dental visit in the last 12 months?: No Did you have a dental problem in the last 6 months where you did not have access to dental care?: No Was dental information given to patient?: Patient declined HPI physical HPI Details 43-year-old male with a history of polysubstance abuse generalized anxiety disorder impaired glucose tolerance GERD insomnia coming in for follow-up. Last seen in December 2022. Patient is here for physical [facility] Medical History (Updated 08/20/23 @ 11:09 by Irasema Nugent MD) Gonorrhea Fracture of finger, middle phalanx, left, closed Insect bites Tinea pedis Anxiety Brea Acute psychosis Polysubstance abuse Alcohol abuse Alopecia Insomnia GERD (gastroesophageal reflux disease) Marijuana smoker Asthma Surgical History Hx of appendectomy Family History Father Lung cancer Mother CVA (cerebral vascular accident) Diabetic acetonemia Brother Multiple sclerosis Sister Multiple sclerosis Maternal Aunt Skin cancer Social History (Updated 08/20/23 @ 11:03 by Irasema Nugent MD) Household Members: Family Housing: House Housing Other:: Initially stated that he lives with mother & then reports he is homeless Are you a primary customer care specialist to a significant other at home: No Do you presently have visiting nurse or other home services: No Alcohol intake: current Alcohol intake frequency: a few times a week Patient Tobacco Use Status: Former Tobacco user Tobacco use type: Cigarette Years Smoked: quit 06/2021 e-Cigarette/Vaping Use: Never Used Second Hand Smoke Exposure: No Substance Use Type: Crack/Cocaine, Marijuana and Opiates service: No Current occupational status: employed and unemployed Sexual orientation: Don't Know Cognitive needs: No Hearing needs: No Vision needs: No Questionnaire Thrive Questionnaire Date Thrive assessed: 12/30/22 TRINI-7 AMB Questionnaire TRINI-7 Date TRINI - 7 assessed: 12/30/22 Source: Developed by Drs. Cristofer Beckham, Pilar Carter, Kj Gautam and colleagues, with an educational fadia from [employer]. Review of Systems Const Denies poor appetite and Denies weakness Eyes Denies no additional complaints ENT Reports Normal hearing present, Denies dizziness, Denies nasal congestion, Denies tinnitus and Denies sore throat Card Denies chest pain, Denies syncope, Denies rapid heart rate and Denies dyspnea Resp Denies cough and Denies dyspnea GI Denies change in stool character, Reports constipation, Denies diarrhea, Denies nausea and Denies vomiting Denies dysuria and Denies urinary frequency Neuro Reports Normal hearing present, Denies confusion, Denies dizziness, Denies syncope and Denies weakness Psych Denies confusion Physical exam (Primary Care) Vital Signs: Last Vital Signs Pulse Ox 99 08/20/23 10:28 Oxygen Delivery Method Room Air 08/20/23 10:28 BMI result Body Mass Index 25.5 Tobacco/Smoking Status: Tobacco use Status Tobacco use date assessed 12/30/22 08/20/23 10:32 Patient Tobacco Use Status Former Tobacco user 08/20/23 10:32 Tobacco use type Cigarette 08/20/23 10:32 e-Cigarette/Vaping Use Never Used 08/20/23 10:32 Thrive Assessment: Date of Thrive Assessment Date Thrive assessed 12/30/22 08/20/23 10:32 Const General: No confusion Orientation/consciousness: No confusion HENMT Head: Yes normocephalic Ears: external ears normal and TM's normal bilaterally Face and sinus: Yes normal facial exam Mouth: moist mucous membranes Throat: Yes tonsils normal Eyes Conjunctivae: conjunctivae normal Pupils: Equal, round and reactive pupils present and Pupil accommodation reflex normal Direct Ophthalmoscopy: normal light reflex Neck Neck: No lymphadenopathy Thyroid: Thyroid normal Chest Chest palpation & inspection: normal inspection of the chest Resp Effort & Inspection: normal respiratory effort and no audible wheezes Auscultation: clear to auscultation bilaterally, no crackles, no wheezes and lung sounds not diminished Cardio Rate: regular rate Rhythm: regular rhythm Peripheral pulses: radial pulses present and dorsalis pedis present GI Other: visual inspection N Palpation (GI): no masses Auscultation: normal bowel sounds and normoactive bowel sounds Rectal Exam - Male: Yes deferred Male General Exam: Yes normal external exam Skin General skin exam: no rashes or lesions noted Rashes: no rashes Neuro General: No confusion Cranial nerves: Yes Equal, round and reactive pupils present and Yes Normal hearing present Cognition (Neuro): normal cognition Gait exam (Neuro): Normal gait present Motor exam (neuro): 5/5 motor strength present throughout Deep tendon reflexes (DTR's): Right brachioradialis reflex intensity grade: 2+, Left brachioradialis reflex intensity grade: 2+, Right patellar reflex intensity grade: 2+ and Left patellar reflex intensity grade: 2+ Extrem Other: thickened toe nails with scaliness and whitish rash on the L interdigital area General: No edema Office Procedures Flu Questionnaire Does the patient have a severe egg allergy?: No Does the patient have severe life threatening allergies?: No Does the patient have a fever or illness today?: No Has the patient ever had Guillain-Neponset Syndrome?: No Has the patient ever had any past reaction to a flu shot?: No Immunizations flu vacc [id number] 6mos up(PF) 60 mcg(15 mcgx4)/0.5 mL IM syringe Performing Provider: Irasema Nugent MD Performing Location: [facility] Administered by: TIGIST Falk on 08/20/23 11:02 Dose Route Admin Location Dispensed Lot Number Expiration Date NDC Opinion Polls Survey Worker 0.5 mL IM Left Deltoid 0.5 mL [id number] 04/09/24 [id number] K1 Speed VIS Given Date VIS Provided VIS Publication Date 08/20/23 Single Vaccine 21 Eligibility Eligibility Date Funding Source Not [facility] Eligible 08/20/23 Private Assessment and Plan Assessment & Plan (1) Annual physical exam: Code(s): Z00.00 - Encounter for general adult medical examination without abnormal findings (2) Overweight (BMI 25.0-29.9): Code(s): E66.3 - Overweight Plan: Continue with diet and exercise noted weight loss (3) Insomnia: Code(s): G47.00 - Insomnia, unspecified Plan: Continue with the medication as needed (4) GERD (gastroesophageal reflux disease): Code(s): K21.9 - Gastro-esophageal reflux disease without esophagitis Qualifiers: Esophagitis presence: without esophagitis Qualified Code(s): K21.9 - Gastro-esophageal reflux disease without esophagitis Plan: Avoid the foods that causes that usually spicy foods, tomato products, juices, coffee, soda and foods that your sensitive to. After eating do not lie down, allow 3-4 hours before in lie down. And keep the head of bed above 30 degrees to avoid the acid from going up. (5) Asthma: Code(s): J45.909 - Unspecified asthma, uncomplicated Qualifiers: Asthma severity: mild Asthma persistence: intermittent Asthma complication type: uncomplicated Qualified Code(s): J45.20 - Mild intermittent asthma, uncomplicated Plan: Albuterol inhaler as needed (6) Impaired glucose tolerance: Code(s): R73.02 - Impaired glucose tolerance (oral) Plan: Decrease the amount of carbohydrate intake, pasta, bread, rice and potatoes are all sugar and that is aside from all the sweet stuff, remember that fruits are good but they are Sweet also. (7) Generalized anxiety disorder: Comment: [facility] once a week (phone) Nadine Burris 07/2022 Code(s): F41.1 - Generalized anxiety disorder Plan: Continue with counseling and therapy (8) Tinea pedis: Code(s): B35.3 - Tinea pedis (9) Onychomycosis: Code(s): B35.1 - Tinea unguium Orders: Orders Influenza [id number] Immunization Today Z23 - Encounter for immunization Complete Blood Count Auto Diff Today R73.02 - Impaired glucose tolerance (oral) Vitamin B12 and Folate Today K21.9 - Gastro-esophageal reflux disease without esophagitis Thyroid Stimulating Hormone Today K21.9 - Gastro-esophageal reflux disease without esophagitis Lipid Panel Today E78.00 - Pure hypercholesterolemia, unspecified, K21.9 - Gastro-esophageal reflux disease without esophagitis Free T4 (Free Thyroxine) Today K21.9 - Gastro-esophageal reflux disease without esophagitis Comprehensive Met. Panel Today R73.02 - Impaired glucose tolerance (oral) Hemoglobin A1c Today R73.02 - Impaired glucose tolerance (oral) Medications: New terbinafine HCl 250 mg PO DAILY 4 weeks 28 tabs 2RF B35.1 - Tinea unguium clotrimazole 1% 1 appl topical BID 4 weeks 45 grams 1RF B35.3 - Tinea pedis Coding Level of Care Code Est Pt Prev Care 40-64y(60625) Diagnoses Annual physical exam Z00.00 Overweight (BMI 25.0-29.9) E66.3 Insomnia G47.00 Gastroesophageal reflux disease without esophagitis K21.9 Esophagitis presence: without esophagitis Mild intermittent asthma without complication J45.20 Asthma severity: mild Asthma persistence: intermittent Asthma complication type: uncomplicated Impaired glucose tolerance R73.02 Generalized anxiety disorder F41.1 Tinea pedis B35.3 Onychomycosis B35.1
== END 2023-08-20 11:14 | disposition home or self-care (01) ==
PROVIDERS: Visit Provider Internal Medicine
DX: Z00.00 Encounter for general adult medical examination without abnormal findings (principal); E66.3 Overweight; G47.00 Insomnia, unspecified; K21.9 Gastro-esophageal reflux disease without esophagitis; Z23 Encounter for immunization; J45.20 Mild intermittent asthma, uncomplicated; R73.02 Impaired glucose tolerance (oral); F41.1 Generalized anxiety disorder; B35.3 Tinea pedis; B35.1 Tinea unguium
CPT/HCPCS: 90471; 90686; 99396

== ENCOUNTER 2023-10-18 10:11 | Outpatient (AMB) | payer OTHER, SELFPAY ==
[2023-10-18 10:27] VITALS: BP 106/68; PULSE 60; O2SAT 96; BMI 24.4
--- NOTE | 2023-10-18 10:27 | MHC.PC.OV ---
Vital Signs 10/18/23 10:27 Height 5 ft 3 in Weight 138 lb BMI 24.4 BP 106/68 Blood Pressure Location Lt brachial Position Sitting Pulse 60 Pulse Source Pulse Oximeter Pulse Oximetry (%) 96 Oxygen Delivery Method Room Air Intake Visit Reasons: 2 month f/u Pediatrician Required: No Allergies No Known Allergies Allergy (Verified 10/18/23 10:27) Tobacco use date assessed: 10/18/23 Dental Screening Dental Screen Date: 10/18/23 Did you have a dental visit in the last 12 months?: No Did you have a dental problem in the last 6 months where you did not have access to dental care?: No HPI 2 month f/u HPI Details 43-year-old male with GERD asthma generalized anxiety disorder insomnia coming in for follow-up. Last seen in August 2023. Blood work was done in August 2022 with concerns of on an elevated blood sugar and calcium patient was advised to get blood work repeated also noted positive cocaine positive marijuana and positive fentanyl. [facility] Medical History (Updated 10/18/23 @ 10:57 by Irasema Nugent MD) Overweight (BMI 25.0-29.9) Gonorrhea Fracture of finger, middle phalanx, left, closed Insect bites Tinea pedis Anxiety Brea Acute psychosis Polysubstance abuse Alcohol abuse Alopecia Insomnia GERD (gastroesophageal reflux disease) Marijuana smoker Asthma Surgical History Hx of appendectomy Family History Father Lung cancer Mother CVA (cerebral vascular accident) Diabetic acetonemia Brother Multiple sclerosis Sister Multiple sclerosis Maternal Aunt Skin cancer Social History (Updated 08/20/23 @ 11:03 by Irasema Nugent MD) Household Members: Family Housing: House Housing Other:: Initially stated that he lives with mother & then reports he is homeless Are you a primary wound care rn to a significant other at home: No Do you presently have visiting nurse or other home services: No Alcohol intake: current Alcohol intake frequency: a few times a week Patient Tobacco Use Status: Former Tobacco user Tobacco use type: Cigarette Years Smoked: quit 06/2021 e-Cigarette/Vaping Use: Never Used Second Hand Smoke Exposure: No Substance Use Type: Crack/Cocaine, Marijuana and Opiates service: No Current occupational status: employed and unemployed Sexual orientation: Don't Know Cognitive needs: No Hearing needs: No Vision needs: No Questionnaire PHQ-9 Over the last 2 weeks, how often have you been bothered by any of the following problems? 1. Little interest or pleasure in doing things: not at all 2. Feeling down, depressed, or hopeless: not at all 3. Trouble falling or staying asleep, or sleeping too much: not at all 4. Feeling tired or having little energy: not at all 5. Poor appetite or overeating: not at all 6. Feeling bad about yourself - or that you are a failure or have let yourself or your family down: not at all 7. Trouble concentrating on things, such as reading the newspaper or watching television: not at all 8. Moving or speaking so slowly that other people could have noticed. Or the opposite - being so fidgety or restless that you have been moving around a lot more than usual: not at all 9. Thoughts that you would be better off or of hurting yourself in some way: not at all Total score: 0 Depression Screening Interpretation: Negative Depression Screening Done: Yes Source: Developed by Drs. Cristofer Beckham, Pilar Carter, Kj Gautam and colleagues, with an educational fadia from [employer]. Thrive Questionnaire Date Thrive assessed: 12/30/22 AUDIT C Alcohol Use Questionnaire (AUDIT-C) 1. How often do you have a drink containing alcohol?: Monthly or less 2. How many drinks containing alcohol do you have on a typical day when you are drinking?: 1 or 2 3. How often do you have six or more drinks on one occasion?: Never Total Score: 1 TRINI-7 AMB Questionnaire TRINI-7 Date TRINI - 7 assessed: 10/18/23 Feeling nervous, anxious, or on edge: 0 = Not at all Not being able to stop or control worryin = Not at all Worrying too much about different things: 0 = Not at all Trouble relaxin = Not at all Being so restless that it is hard to sit still: 0 = Not at all Becoming easily annoyed or irritable: 0 = Not at all Feeling afraid as if something awful might happen: 0 = Not at all Total TRINI-7 score (0-4 normal; 5-9 mild; 10-14 moderate; 15-21 severe): 0 Source: Developed by Drs. Cristofer Beckham, Pilar Carter, Kj Gautam and colleagues, with an educational fadia from [employer]. Physical exam (Primary Care) Vital Signs: Last Vital Signs Pulse 60 10/18/23 10:27 BP 106/68 10/18/23 10:27 Pulse Ox 96 10/18/23 10:27 Oxygen Delivery Method Room Air 10/18/23 10:27 BMI result Body Mass Index 24.4 Tobacco/Smoking Status: Tobacco use Status Tobacco use date assessed 10/18/23 10/18/23 10:28 Patient Tobacco Use Status Former Tobacco user 10/18/23 10:28 Tobacco use type Cigarette 10/18/23 10:28 e-Cigarette/Vaping Use Never Used 10/18/23 10:28 PHQ-9: PHQ-9 Score PHQ-9: Total score 0 10/18/23 10:38 Depression Screening Interpretation: Negative Thrive Assessment: Date of Thrive Assessment Date Thrive assessed 12/30/22 10/18/23 10:28 Const General: alert; No acute distress Eyes Conjunctivae: conjunctivae normal Resp Auscultation: clear to auscultation bilaterally Cardio Rate: regular rate Rhythm: regular rhythm GI Inspection: Yes normal to inspection Extrem General: Yes normal to inspection and No edema Assessment and Plan Assessment & Plan (1) Polysubstance abuse: Code(s): F19.10 - Other psychoactive substance abuse, uncomplicated Plan: Patient was strongly advised to abstain from this (2) Generalized anxiety disorder: Comment: Living [place] once a week (phone) Nadine Burris 07/2022 Code(s): F41.1 - Generalized anxiety disorder Plan: Continue with counseling and therapy patient is on olanzapine perphenazine (3) Impaired glucose tolerance: Code(s): R73.02 - Impaired glucose tolerance (oral) Plan: Decrease the amount of carbohydrate intake, pasta, bread, rice and potatoes are all sugar and that is aside from all the sweet stuff, remember that fruits are good but they are Sweet also. Concern that the blood sugar was elevated but the hemoglobin A1c was normal (4) GERD (gastroesophageal reflux disease): Code(s): K21.9 - Gastro-esophageal reflux disease without esophagitis Qualifiers: Esophagitis presence: without esophagitis Qualified Code(s): K21.9 - Gastro-esophageal reflux disease without esophagitis Plan: GERD plan (5) Asthma: Code(s): J45.909 - Unspecified asthma, uncomplicated Qualifiers: Asthma severity: mild Asthma persistence: intermittent Asthma complication type: uncomplicated Qualified Code(s): J45.20 - Mild intermittent asthma, uncomplicated Plan: Strongly advised to restrain from smoking. Advised to use the albuterol only when Shortness of breath as he has been usign Q night. and discussed about triggers like smoke (6) Hypercalcemia: Code(s): E83.52 - Hypercalcemia Plan: Advised to repeat testing. Coding Level of Care Code Est Pt Level 4 (27375) Diagnoses Polysubstance abuse F19.10 Generalized anxiety disorder F41.1 Impaired glucose tolerance R73.02 Gastroesophageal reflux disease without esophagitis K21.9 Esophagitis presence: without esophagitis Mild intermittent asthma without complication J45.20 Asthma severity: mild Asthma persistence: intermittent Asthma complication type: uncomplicated Hypercalcemia E83.52
== END 2023-10-18 11:12 | disposition home or self-care (01) ==
PROVIDERS: PCP Internal Medicine; Visit Provider Internal Medicine
DX: F19.10 Other psychoactive substance abuse, uncomplicated (principal); F41.1 Generalized anxiety disorder; R73.02 Impaired glucose tolerance (oral); K21.9 Gastro-esophageal reflux disease without esophagitis; J45.20 Mild intermittent asthma, uncomplicated; E83.52 Hypercalcemia
CPT/HCPCS: 99214

== ENCOUNTER 2024-04-17 09:47 | Outpatient (AMB) | payer OTHER, SELFPAY ==
[2024-04-17 09:59] VITALS: BP 118/72; PULSE 65; O2SAT 98; BMI 23.2
--- NOTE | 2024-04-17 09:59 | A.OFFPC_ITS ---
Vital Signs 04/17/24 09:59 Height 5 ft 3 in Weight 131 lb BMI 23.2 BP 118/72 Blood Pressure Location Lt brachial Position Sitting Pulse 65 Pulse Source Pulse Oximeter Pulse Oximetry (%) 98 Oxygen Delivery Method Room Air Intake Visit Reasons: hypercalcemia Allergies No Known Allergies Allergy (Verified 04/17/24 10:00) Medication List - Last Reconciled 04/17/24 by Irasema Nugent MD albuterol sulfate 90 mcg/actuation (Ventolin HFA) 2 puffs PO Q4-6H PRN famotidine 20 mg PO BEDTIME 30 days olanzapine 10 mg PO BEDTIME 30 days perphenazine 4 mg PO BID zolpidem 10 mg PO BEDTIME PRN Tobacco use date assessed: 10/18/23 Dental Screening Dental Screen Date: 04/17/24 Did you have a dental visit in the last 12 months?: No Did you have a dental problem in the last 6 months where you did not have access to dental care?: No Was dental information given to patient?: Patient has dentist HPI hypercalcemia HPI Details 43-year-old male with a history of polys ubstance abuse generalized anxiety disorder impaired glucose tolerance GERD and asthma last seen in 10/30/2023. Concern about an elevated calcium and was advised repeat testing. This was not done.- reminded about blood work - licing water counselling once a week. so far abstinence from drugs [facility] Medical History (Updated 10/18/23 @ 10:57 by Irasema Nugent MD) Overweight (BMI 25.0-29.9) Gonorrhea Fracture of finger, middle phalanx, left, closed Insect bites Tinea pedis Anxiety Brea Acute psychosis Polysubstance abuse Alcohol abuse Alopecia Insomnia GERD (gastroesophageal reflux disease) Marijuana smoker Asthma Surgical History Hx of appendectomy Family History (Updated 04/17/24 @ 10:00 by Vita Allen CMA) Father Lung cancer Mother CVA (cerebral vascular accident) Diabetic acetonemia Brother Multiple sclerosis Sister Multiple sclerosis Maternal Aunt Skin cancer Social History (Updated 08/20/23 @ 11:03 by Irasema Nugent MD) Household Members: Family Housing: House Housing Other:: Initially stated that he lives with mother & then reports he is homeless Are you a primary resident care aide to a significant other at home: No Do you presently have visiting nurse or other home services: No Alcohol intake: current Alcohol intake frequency: a few times a week Patient Tobacco Use Status: Former Tobacco user Tobacco use type: Cigarette Years Smoked: quit 06/2021 e-Cigarette/Vaping Use: Never Used Second Hand Smoke Exposure: No Substance Use Type: Crack/Cocaine, Marijuana and Opiates service: No Current occupational status: employed and unemployed Sexual orientation: Don't Know Cognitive needs: No Hearing needs: No Vision needs: No Questionnaire PHQ-9 Over the last 2 weeks, how often have you been bothered by any of the following problems? 1. Little interest or pleasure in doing things: not at all 2. Feeling down, depressed, or hopeless: not at all 3. Trouble falling or staying asleep, or sleeping too much: not at all 4. Feeling tired or having little energy: not at all 5. Poor appetite or overeating: not at all 6. Feeling bad about yourself - or that you are a failure or have let yourself or your family down: not at all 7. Trouble concentrating on things, such as reading the newspaper or watching television: not at all 8. Moving or speaking so slowly that other people could have noticed. Or the opposite - being so fidgety or restless that you have been moving around a lot more than usual: not at all 9. Thoughts that you would be better off or of hurting yourself in some way: not at all Total score: 0 Depression Screening Interpretation: Negative Depression Screening Done: Yes Source: Developed by Drs. Cristofer Beckham, Pilar Carter, Kj Gautam and colleagues, with an educational fadia from [employer]. Thrive Questionnaire Date Thrive assessed: 04/17/24 I am a: Patient What is your living situation today?: I have a steady place to live Within the past 12 months, did the food you bought not last and you didn't have the money to get more?: Never true Within the past 12 months, did you worry whether your food would run out before you got money to buy more?: Never true Do you have trouble paying for medicines?: No Do you have trouble getting transportation to medical appointments?: No Do you have trouble paying your heating and electricity bill?: No Do you have trouble taking care of your child, family member or friend?: No Do you have trouble with day-to-day activities such as bathing, preparing meals, shopping, managing finances, etc.?: No Are you currently unemployed and looking for a job?: No Are you interested in more education?: No Currently or been in a relationship where the following occur: No concerns reported THRIVE Score: 0 AUDIT C Alcohol Use Questionnaire (AUDIT-C) 1. How often do you have a drink containing alcohol?: Monthly or less 2. How many drinks containing alcohol do you have on a typical day when you are drinking?: 1 or 2 3. How often do you have six or more drinks on one occasion?: Never Total Score: 1 TRINI-7 AMB Questionnaire TRINI-7 Date TRINI - 7 assessed: 10/18/23 Source: Developed by Drs. Cristofer Beckham, Pilar Carter, Kj Gautam and colleagues, with an educational fadia from [employer]. Physical exam (Primary Care) Vital Signs: Last Vital Signs Pulse 65 04/17/24 09:59 BP 118/72 04/17/24 09:59 Pulse Ox 98 04/17/24 09:59 Oxygen Delivery Method Room Air 04/17/24 09:59 BMI result Body Mass Index 23.2 Tobacco/Smoking Status: Tobacco use Status Tobacco use date assessed 10/18/23 04/17/24 10:04 Patient Tobacco Use Status Former Tobacco user 04/17/24 10:04 Tobacco use type Cigarette 04/17/24 10:04 e-Cigarette/Vaping Use Never Used 04/17/24 10:04 PHQ-9: PHQ-9 Score PHQ-9: Total score 0 04/17/24 10:04 Depression Screening Interpretation: Negative Thrive Assessment: Date of Thrive Assessment Date Thrive assessed 04/17/24 04/17/24 10:04 Currently or been in a relationship where the following occur: No concerns reported Const General: alert; No acute distress Eyes Conjunctivae: conjunctivae normal Resp Auscultation: clear to auscultation bilaterally Cardio Rate: regular rate Rhythm: regular rhythm GI Inspection: Yes normal to inspection Extrem General: Yes normal to inspection and No edema Assessment and Plan Assessment & Plan (1) Hypercalcemia: Code(s): E83.52 - Hypercalcemia Plan: Patient is reminded about the blood work that needs to be done. (2) Polysubstance abuse: Code(s): F19.10 - Other psychoactive substance abuse, uncomplicated Plan: Continue with counseling and therapy. (3) Generalized anxiety disorder: Comment: Living [place] once a week (phone) Nadine Burris 07/2022 Code(s): F41.1 - Generalized anxiety disorder Plan: Continue with counseling and therapy on olanzapine 10 mg at bedtime perphenazine 4 mg twice a day (4) GERD (gastroesophageal reflux disease): Code(s): K21.9 - Gastro-esophageal reflux disease without esophagitis Qualifiers: Esophagitis presence: without esophagitis Qualified Code(s): K21.9 - Gastro-esophageal reflux disease without esophagitis Plan: Avoid the foods that causes that usually spicy foods, tomato products, juices, coffee, soda and foods that your sensitive to. After eating do not lie down, allow 3-4 hours before in lie down. And keep the head of bed above 30 degrees to avoid the acid from going up. (5) Asthma: Code(s): J45.909 - Unspecified asthma, uncomplicated Qualifiers: Asthma severity: mild Asthma persistence: intermittent Asthma complication type: uncomplicated Qualified Code(s): J45.20 - Mild intermittent asthma, uncomplicated Plan: Continue with inhalers as needed Medications: Refilled albuterol sulfate 90 mcg/actuation (Ventolin HFA) 2 puffs PO Q4-6H PRN 8.5 grams 0RF for wheezing J45.909 - Unspecified asthma, uncomplicated Coding Level of Care Code Est Pt Level 4 (26963) Diagnoses Hypercalcemia E83.52 Polysubstance abuse F19.10 Generalized anxiety disorder F41.1 Gastroesophageal reflux disease without esophagitis K21.9 Esophagitis presence: without esophagitis Mild intermittent asthma without complication J45.20 Asthma severity: mild Asthma persistence: intermittent Asthma complication type: uncomplicated
== END 2024-04-17 10:22 | disposition home or self-care (01) ==
PROVIDERS: PCP Internal Medicine; Visit Provider Internal Medicine
DX: E83.52 Hypercalcemia (principal); F19.10 Other psychoactive substance abuse, uncomplicated; F41.1 Generalized anxiety disorder; K21.9 Gastro-esophageal reflux disease without esophagitis; J45.20 Mild intermittent asthma, uncomplicated
CPT/HCPCS: 99214

== ENCOUNTER 2024-11-09 15:59 | Outpatient (AMB) | payer OTHER, SELFPAY ==
--- NOTE | 2024-11-09 16:28 | MHC.PC.OV ---
Vital Signs 11/09/24 16:29 Height 5 ft 3 in Weight 131 lb BMI 23.2 BP 112/80 Blood Pressure Location Lt brachial Position Sitting Pulse 94 Pulse Source Pulse Oximeter Pulse Oximetry (%) 97 Oxygen Delivery Method Room Air Intake Visit Reasons: Annual Exam Intake Note: Patient here for a physical exam Gray Tender Required: No Accompanied by: Self / Same As Patient Allergies No Known Allergies Allergy (Verified 11/09/24 16:31) Medication List - Last Reconciled 11/09/24 by Irasema Nugent MD albuterol sulfate 90 mcg/actuation (Ventolin HFA) 2 puffs PO Q4-6H PRN Tobacco use date assessed: 11/09/24 Dental Screening Dental Screen Date: 11/09/24 Did you have a dental visit in the last 12 months?: Yes Did you have a dental problem in the last 6 months where you did not have access to dental care?: No Was dental information given to patient?: Patient has dentist HPI Annual Exam HPI Details The patient is a 44-year-old male presenting with a wellness visit and follow-up on asthma management. The patient has a history of asthma, for which he uses a Ventolin inhaler. He has insurance-related issues affecting medication. He reports he is not allergic to medications. The patient had been prescribed olanzapine in the past but is not currently taking it. He previously attended therapy, which has ceased due to closure last month. There are no new diagnoses or surgeries since April, and he denies any family history of heart attack or stroke apart from his mother's stroke. - Pneumonia vaccine record updated; last shot in August 2023. - Discussed flu vaccination; patient unsure if he received it this year. - Advised on the potential benefits of continued preventive vaccinations. - Nicotine use in the form of vaping noted; advised on cessation. - Alcohol consumption occurs twice monthly, with moderate intake. - No tobacco smoking or illicit drug use reported. - General: Denies fever, dizziness, nausea, vomiting - Respiratory: Denies shortness of breath, chest pains - Gastrointestinal: Denies problems with swallowing, heartburn - Neurological: Denies problems with hearing, no episodes of waking up short of breath [facility] Medical History (Updated 10/18/23 @ 10:57 by Irasema Nugent MD) Overweight (BMI 25.0-29.9) Gonorrhea Fracture of finger, middle phalanx, left, closed Insect bites Tinea pedis Anxiety Brea Acute psychosis Polysubstance abuse Alcohol abuse Alopecia Insomnia GERD (gastroesophageal reflux disease) Marijuana smoker Asthma Surgical History Hx of appendectomy Family History Father Lung cancer Mother CVA (cerebral vascular accident) Diabetic acetonemia Brother Multiple sclerosis Sister Multiple sclerosis Maternal Aunt Skin cancer Social History (Updated 11/09/24 @ 16:54 by Irasema Nugent MD) Household Members: Family Housing: House Housing Other:: Initially stated that he lives with mother & then reports he is homeless Are you a primary assistant child care teacher to a significant other at home: No Do you presently have visiting nurse or other home services: No Alcohol intake: current Alcohol intake frequency: a few times a week Comment: twice a month 3-4 beers Patient Tobacco Use Status: Former Tobacco user Tobacco use type: Cigarette Years Smoked: quit 06/2021vape (10/2024) e-Cigarette/Vaping Use: Currently Using Second Hand Smoke Exposure: No Substance Use Type: Crack/Cocaine, Marijuana and Opiates service: No Current occupational status: employed Current occupational exposures/hazards: No Sexual orientation: Don't Know Cognitive needs: No Hearing needs: No Vision needs: No Questionnaire PHQ-9 Over the last 2 weeks, how often have you been bothered by any of the following problems? 1. Little interest or pleasure in doing things: not at all 2. Feeling down, depressed, or hopeless: not at all 3. Trouble falling or staying asleep, or sleeping too much: several days 4. Feeling tired or having little energy: not at all 5. Poor appetite or overeating: not at all 6. Feeling bad about yourself - or that you are a failure or have let yourself or your family down: not at all 7. Trouble concentrating on things, such as reading the newspaper or watching television: not at all 8. Moving or speaking so slowly that other people could have noticed. Or the opposite - being so fidgety or restless that you have been moving around a lot more than usual: not at all 9. Thoughts that you would be better off or of hurting yourself in some way: not at all Total score: 1 Source: Developed by Drs. Cristofer Beckham, Pilar Carter, Kj Gautam and colleagues, with an educational fadia from [employer]. Thrive Questionnaire Date Thrive assessed: 11/09/24 I am a: Patient What is your living situation today?: I have a steady place to live Within the past 12 months, did the food you bought not last and you didn't have the money to get more?: Never true Within the past 12 months, did you worry whether your food would run out before you got money to buy more?: Never true Do you have trouble paying for medicines?: No Do you have trouble getting transportation to medical appointments?: No Do you have trouble paying your heating and electricity bill?: No Do you have trouble taking care of your child, family member or friend?: No Do you have trouble with day-to-day activities such as bathing, preparing meals, shopping, managing finances, etc.?: No Are you currently unemployed and looking for a job?: No Are you interested in more education?: No Please select the resources that you would like help with: None Currently or been in a relationship where the following occur: I choose not to answer THRIVE Score: 0 AUDIT C Alcohol Use Questionnaire (AUDIT-C) 1. How often do you have a drink containing alcohol?: 2-4 times a month 2. How many drinks containing alcohol do you have on a typical day when you are drinking?: 3 or 4 3. How often do you have six or more drinks on one occasion?: Monthly Total Score: 5 TRINI-7 AMB Questionnaire TRINI-7 Date TRINI - 7 assessed: 11/09/24 Feeling nervous, anxious, or on edge: 0 = Not at all Not being able to stop or control worryin = Not at all Worrying too much about different things: 0 = Not at all Trouble relaxin = Not at all Being so restless that it is hard to sit still: 0 = Not at all Becoming easily annoyed or irritable: 0 = Not at all Feeling afraid as if something awful might happen: 0 = Not at all Total TRINI-7 score (0-4 normal; 5-9 mild; 10-14 moderate; 15-21 severe): 0 Source: Developed by Drs. Cristofer Beckham, Pilar Carter, Kj Gautam and colleagues, with an educational fadia from [employer]. Review of Systems Const Denies poor appetite and Denies weakness Eyes Denies no additional complaints ENT Reports Normal hearing present, Denies dizziness, Denies nasal congestion, Denies tinnitus and Denies sore throat Card Denies chest pain, Denies syncope, Denies rapid heart rate and Denies dyspnea Resp Denies cough and Denies dyspnea GI Denies change in stool character, Reports constipation, Denies diarrhea, Denies nausea and Denies vomiting Denies dysuria and Denies urinary frequency Neuro Reports Normal hearing present, Denies confusion, Denies dizziness, Denies syncope and Denies weakness Psych Denies confusion Physical exam (Primary Care) Vital Signs: Last Vital Signs Pulse 94 11/09/24 16:29 BP 112/80 11/09/24 16:29 Pulse Ox 97 11/09/24 16:29 Oxygen Delivery Method Room Air 11/09/24 16:29 BMI result Body Mass Index 23.2 Tobacco/Smoking Status: Tobacco use Status Tobacco use date assessed 11/09/24 11/09/24 16:33 Patient Tobacco Use Status Former Tobacco user 11/09/24 16:33 Tobacco use type Cigarette 11/09/24 16:33 e-Cigarette/Vaping Use Currently Using 11/09/24 16:33 PHQ-9: PHQ-9 Score PHQ-9: Total score 1 11/09/24 16:33 Thrive Assessment: Date of Thrive Assessment Date Thrive assessed 11/09/24 11/09/24 16:33 Currently or been in a relationship where the following occur: I choose not to answer Const General: No confusion Orientation/consciousness: No confusion HENMT Head: Yes normocephalic Ears: external ears normal and TM's normal bilaterally Face and sinus: Yes normal facial exam Mouth: moist mucous membranes Throat: Yes tonsils normal Eyes Conjunctivae: conjunctivae normal Pupils: Equal, round and reactive pupils present and Pupil accommodation reflex normal Direct Ophthalmoscopy: normal light reflex Neck Neck: No lymphadenopathy Thyroid: Thyroid normal Chest Chest palpation & inspection: normal inspection of the chest Resp Effort & Inspection: normal respiratory effort and no audible wheezes Auscultation: clear to auscultation bilaterally, no crackles, no wheezes and lung sounds not diminished Cardio Rate: regular rate Rhythm: regular rhythm Peripheral pulses: radial pulses present and dorsalis pedis present GI Other: visual negative exam Palpation (GI): no masses Auscultation: normal bowel sounds and normoactive bowel sounds Rectal Exam - Male: Yes deferred Male General Exam: Yes normal external exam Skin General skin exam: no rashes or lesions noted Rashes: no rashes Neuro General: No confusion Cranial nerves: Yes Equal, round and reactive pupils present and Yes Normal hearing present Cognition (Neuro): normal cognition Gait exam (Neuro): Normal gait present Motor exam (neuro): 5/5 motor strength present throughout Deep tendon reflexes (DTR's): Right brachioradialis reflex intensity grade: 2+, Left brachioradialis reflex intensity grade: 2+, Right patellar reflex intensity grade: 2+ and Left patellar reflex intensity grade: 2+ Extrem General: No edema Coding Level of Care Code Est Pt Prev Care 40-64y(10127) Diagnoses Annual physical exam Z00.00 Impaired glucose tolerance R73.02 Anemia, unspecified type D64.9 Anemia type: unspecified type Gastroesophageal reflux disease without esophagitis K21.9 Esophagitis presence: without esophagitis Mild intermittent asthma without complication J45.20 Asthma severity: mild Asthma persistence: intermittent Asthma complication type: uncomplicated Insomnia G47.00 Generalized anxiety disorder F41.1 Assessment & Plan Assessment & Plan (1) Annual physical exam: Code(s): Z00.00 - Encounter for general adult medical examination without abnormal findings Category: Medical (2) Impaired glucose tolerance: Code(s): R73.02 - Impaired glucose tolerance (oral) Category: Medical (3) Anemia: Code(s): D64.9 - Anemia, unspecified Category: Medical Qualifiers: Anemia type: unspecified type Qualified Code(s): D64.9 - Anemia, unspecified (4) GERD (gastroesophageal reflux disease): Code(s): K21.9 - Gastro-esophageal reflux disease without esophagitis Category: Medical Qualifiers: Esophagitis presence: without esophagitis Qualified Code(s): K21.9 - Gastro-esophageal reflux disease without esophagitis (5) Asthma: Code(s): J45.909 - Unspecified asthma, uncomplicated Category: Medical Qualifiers: Asthma severity: mild Asthma persistence: intermittent Asthma complication type: uncomplicated Qualified Code(s): J45.20 - Mild intermittent asthma, uncomplicated (6) Insomnia: Code(s): G47.00 - Insomnia, unspecified Category: Medical (7) Generalized anxiety disorder: Comment: Living [place] once a week (phone) Nadine Burris 07/2022 Code(s): F41.1 - Generalized anxiety disorder Category: Medical Plan - Continue with Ventolin inhaler for asthma management. - Discussed concerns with insurance in relation to medication prescriptions. - Encouraged follow-up for mental health support, given the termination of therapy services. - Advise on reduction of nicotine use, emphasizing the benefits for respiratory health. - Continue preventive health measures, such as vaccinations. During the visit, we discussed the ongoing management of the patient's asthma, ensuring the continuation of the Ventolin inhaler. The patient was informed about the importance of antigen vaccinations to prevent respiratory diseases, such as pneumonia and influenza. We discussed the impact of nicotine use on his asthma and encouraged smoking cessation strategies. The patient was advised to seek alternative therapy options to manage mental health following the closure of his therapy center. We reinforced the importance of routine health maintenance and follow-up appointments to monitor his condition. - Take Ventolin inhaler as prescribed for asthma. - Consider seeking alternative mental health support options. - Reduce nicotine use and consider a plan to quit vaping for improved lung health. - Ensure vaccinations, such as the flu vaccine, are up-to-date especially during season. - Schedule a blood work appointment and follow-up visit as advised.
[2024-11-09 16:29] VITALS: BP 112/80; PULSE 94; O2SAT 97; BMI 23.2
== END 2024-11-09 17:04 | disposition home or self-care (01) ==
PROVIDERS: PCP Internal Medicine; Visit Provider Internal Medicine
DX: Z00.00 Encounter for general adult medical examination without abnormal findings (principal); R73.02 Impaired glucose tolerance (oral); D64.9 Anemia, unspecified; K21.9 Gastro-esophageal reflux disease without esophagitis; J45.20 Mild intermittent asthma, uncomplicated; G47.00 Insomnia, unspecified; F41.1 Generalized anxiety disorder

== ENCOUNTER → 2024-11-09 15:59 | Outpatient (BNVA) | payer OTHER, SELFPAY | PROVIDERS: PCP Internal Medicine; Visit Provider Internal Medicine | DX: Z00.00 Encounter for general adult medical examination without abnormal findings (principal); R73.02 Impaired glucose tolerance (oral); D64.9 Anemia, unspecified; K21.9 Gastro-esophageal reflux disease without esophagitis; J45.20 Mild intermittent asthma, uncomplicated; G47.00 Insomnia, unspecified; F41.1 Generalized anxiety disorder | CPT/HCPCS: 99396 ==

== ENCOUNTER 2025-02-28 08:25 | Outpatient (AMB) | payer OTHER, SELFPAY ==
[2025-02-28 08:35] VITALS: BP 110/68; PULSE 68; O2SAT 98; BMI 23.2
--- NOTE | 2025-02-28 08:35 | A.OFFPC_ITS ---
Vital Signs 02/28/25 08:35 Height 5 ft 3 in Weight 131 lb BMI 23.2 BP 110/68 Blood Pressure Location Lt brachial Position Sitting Pulse 68 Pulse Source Pulse Oximeter Pulse Oximetry (%) 98 Oxygen Delivery Method Room Air Intake Visit Reasons: asthma Allergies No Known Allergies Allergy (Verified 02/28/25 08:35) Tobacco use date assessed: 11/09/24 Dental Screening Dental Screen Date: 02/28/25 Did you have a dental visit in the last 12 months?: No Did you have a dental problem in the last 6 months where you did not have access to dental care?: No Was dental information given to patient?: No PFSH Medical History (Updated 02/28/25 @ 08:51 by Irasema Nugent MD) Overweight (BMI 25.0-29.9) Gonorrhea Fracture of finger, middle phalanx, left, closed Insect bites Tinea pedis Anxiety Brea Acute psychosis Polysubstance abuse Alcohol abuse Alopecia Insomnia GERD (gastroesophageal reflux disease) Marijuana smoker Asthma Surgical History Hx of appendectomy Family History Father Lung cancer Mother CVA (cerebral vascular accident) Diabetic acetonemia Brother Multiple sclerosis Sister Multiple sclerosis Maternal Aunt Skin cancer Social History (Updated 02/28/25 @ 08:51 by Irasema Nugent MD) Household Members: Family Housing: House Housing Other:: Initially stated that he lives with mother & then reports he is homeless Are you a primary child day care teacher to a significant other at home: No Do you presently have visiting nurse or other home services: No Alcohol intake: current Alcohol intake frequency: a few times a week Comment: twice a month 3-4 beers, 3x a month 4 beers (02/2025) Patient Tobacco Use Status: Former Tobacco user Tobacco use type: Cigarette Years Smoked: quit 06/2021vape (10/2024) e-Cigarette/Vaping Use: Currently Using Second Hand Smoke Exposure: No Substance Use Type: Crack/Cocaine, Marijuana and Opiates service: No Current occupational status: employed Current occupational exposures/hazards: No Sexual orientation: Don't Know Cognitive needs: No Hearing needs: No Vision needs: No Questionnaire PHQ-9 Over the last 2 weeks, how often have you been bothered by any of the following problems? 1. Little interest or pleasure in doing things: not at all 2. Feeling down, depressed, or hopeless: not at all 3. Trouble falling or staying asleep, or sleeping too much: not at all 4. Feeling tired or having little energy: not at all 5. Poor appetite or overeating: not at all 6. Feeling bad about yourself - or that you are a failure or have let yourself or your family down: not at all 7. Trouble concentrating on things, such as reading the newspaper or watching television: not at all 8. Moving or speaking so slowly that other people could have noticed. Or the opposite - being so fidgety or restless that you have been moving around a lot more than usual: not at all 9. Thoughts that you would be better off or of hurting yourself in some way: not at all Total score: 0 Depression Screening Interpretation: Negative Depression Screening Done: Yes Source: Developed by Drs. Cristofer Beckham, Pilar Carter, Kj Gautam and colleagues, with an educational fadia from [employer]. Thrive Questionnaire Date Thrive assessed: 11/09/24 I am a: Patient What is your living situation today?: I have a steady place to live Within the past 12 months, did the food you bought not last and you didn't have the money to get more?: Never true Within the past 12 months, did you worry whether your food would run out before you got money to buy more?: Never true Do you have trouble paying for medicines?: No Do you have trouble getting transportation to medical appointments?: No Do you have trouble paying your heating and electricity bill?: No Do you have trouble taking care of your child, family member or friend?: No Do you have trouble with day-to-day activities such as bathing, preparing meals, shopping, managing finances, etc.?: No Are you currently unemployed and looking for a job?: No Are you interested in more education?: No Please select the resources that you would like help with: None Currently or been in a relationship where the following occur: I choose not to answer THRIVE Score: 0 AUDIT C Alcohol Use Questionnaire (AUDIT-C) 1. How often do you have a drink containing alcohol?: 2-4 times a month 2. How many drinks containing alcohol do you have on a typical day when you are drinking?: 3 or 4 3. How often do you have six or more drinks on one occasion?: Monthly Total Score: 5 TRINI-7 AMB Questionnaire TRINI-7 Date TRINI - 7 assessed: 02/28/25 Feeling nervous, anxious, or on edge: 0 = Not at all Not being able to stop or control worryin = Not at all Worrying too much about different things: 0 = Not at all Trouble relaxin = Not at all Being so restless that it is hard to sit still: 0 = Not at all Becoming easily annoyed or irritable: 0 = Not at all Feeling afraid as if something awful might happen: 0 = Not at all Total TRINI-7 score (0-4 normal; 5-9 mild; 10-14 moderate; 15-21 severe): 0 Source: Developed by Drs. Cristofer Beckham, Pilar Carter, Kj Gautam and colleagues, with an educational fadia from [employer]. Physical exam (Primary Care) Vital Signs: Last Vital Signs Pulse 68 02/28/25 08:35 BP 110/68 02/28/25 08:35 Pulse Ox 98 02/28/25 08:35 Oxygen Delivery Method Room Air 02/28/25 08:35 BMI result Body Mass Index 23.2 Tobacco/Smoking Status: Tobacco use Status Tobacco use date assessed 11/09/24 02/28/25 08:39 Patient Tobacco Use Status Former Tobacco user 02/28/25 08:39 Tobacco use type Cigarette 02/28/25 08:39 e-Cigarette/Vaping Use Currently Using 02/28/25 08:39 PHQ-9: PHQ-9 Score PHQ-9: Total score 0 02/28/25 08:39 Depression Screening Interpretation: Negative Thrive Assessment: Date of Thrive Assessment Date Thrive assessed 11/09/24 02/28/25 08:39 Currently or been in a relationship where the following occur: I choose not to answer Const General: alert; No acute distress Eyes Conjunctivae: conjunctivae normal Resp Auscultation: clear to auscultation bilaterally Cardio Rate: regular rate Rhythm: regular rhythm GI Inspection: Yes normal to inspection Extrem General: Yes normal to inspection and No edema Coding Level of Care Code Est Pt Level 4 (20985) Diagnoses Mild intermittent asthma without complication J45.20 Asthma severity: mild Asthma persistence: intermittent Asthma complication type: uncomplicated Gastroesophageal reflux disease without esophagitis K21.9 Esophagitis presence: without esophagitis Impaired glucose tolerance R73.02 Generalized anxiety disorder F41.1 Vaping nicotine dependence, non-tobacco product F17.200 Assessment & Plan Assessment & Plan (1) Asthma: Code(s): J45.909 - Unspecified asthma, uncomplicated Category: Medical Qualifiers: Asthma severity: mild Asthma persistence: intermittent Asthma complication type: uncomplicated Qualified Code(s): J45.20 - Mild intermittent asthma, uncomplicated Plan: Patient has albuterol inhaler as needed (2) GERD (gastroesophageal reflux disease): Code(s): K21.9 - Gastro-esophageal reflux disease without esophagitis Category: Medical Qualifiers: Esophagitis presence: without esophagitis Qualified Code(s): K21.9 - Gastro-esophageal reflux disease without esophagitis Plan: Avoid the foods that causes that usually spicy foods, tomato products, juices, coffee, soda and foods that your sensitive to. After eating do not lie down, allow 3-4 hours before in lie down. And keep the head of bed above 30 degrees to avoid the acid from going up. (3) Impaired glucose tolerance: Code(s): R73.02 - Impaired glucose tolerance (oral) Category: Medical Plan: Decrease the amount of carbohydrate intake, pasta, bread, rice and potatoes are all sugar and that is aside from all the sweet stuff, remember that fruits are good but they are Sweet also. (4) Generalized anxiety disorder: Comment: Living [place] once a week (phone) Nadine Burris 07/2022 Code(s): F41.1 - Generalized anxiety disorder Category: Medical Plan: Continue with counseling. (5) Vaping nicotine dependence, non-tobacco product: Code(s): F17.200 - Nicotine dependence, unspecified, uncomplicated Category: Medical Plan History of Present Illness The patient is a 44-year-old male presenting for a scheduled follow-up. His medical history includes asthma, for which he utilizes an albuterol inhaler as necessary, and Gastroesophageal Reflux Disease (GERD), managed with a reflux plan. The patient experiences insomnia and has a diagnosis of generalized anxiety disorder, along with a history of polysubstance abuse. He has impaired glucose tolerance, evidenced by previous blood sugar elevations, while hemoglobin A1c readings have remained within normal range. Blood work completed in 2021 revealed mild thrombocytosis, and an unexplained elevated calcium level that requires additional attention. His cholesterol levels are satisfactory. He reported being sexually active and recognizes the importance of preventive measures. The patient has been directed towards counseling for mental health support, acknowledging the protracted nature of such referrals. He admits to infrequent alcohol consumption and vaping, striving to moderate these habits, which include a previous smoking history. His asthma control has shown improvement, with occasional reliance on his inhaler to manage sporadic coughing episodes noted over the previous month. Health Maintenance - Blood work pending, following previous findings of elevated blood sugar and calcium. - Respiratory health: asthma management with albuterol as required. - Immunizations reviewed: tetanus and pneumonia vaccines updated. - Lifestyle guidance: encouraged to maintain a balanced diet, increase hydration, and engage in regular physical activity while avoiding heavy lifting. - General wellness: discussion of potential harms of vaping and alcohol consumption given liver health concerns. Social History - Substance Use: Infrequent alcohol consumption reported at 4-5 beers approximately once a month and occasional vaping for smoking cessation; prior history of smoking noted. - Sexual Activity: Reports being sexually active. - Exercise: Physical activity associated with work, with caution advised against heavy lifting. - Family Status: No specific details collected. Review of Systems - Respiratory System: Reports asthma improvement; rare use of albuterol inhaler. - Gastrointestinal System: Denies new or worsening GERD symptoms. - Skin: Reports itching possibly due to dry skin or insect bites. - Constitutional: Denies fever or weight loss. - Neurological System: Denies dizziness or seizures. Physical Exam - Respiratory- Auscultation of lungs was performed; deep breathing noted without any abnormalities. Results - Labs (2021): Mild thrombocytosis, elevated calcium, elevated blood sugar, normal hemoglobin A1c, stable cholesterol levels. Plan To manage the patient's asthma, I recommend continuing albuterol inhaler use as needed, focusing on trigger avoidance and environmental control. For GERD management, I advised maintaining adherence to the reflux plan. Improving sleep hygiene and continued support for anxiety disorder are advised, with counseling referrals in place. For glucose tolerance, maintaining routine monitoring and dietary modifications are vital. I advised alcohol moderation and smoking cessation due to liver concerns. I will request updated lab tests to reassess blood sugar and elevated calcium levels, addressing the thrombocytosis as needed. Patient was informed and verbally consented to the use of an ambient scribe for clinic note documentation during this visit. Discussion Notes I reviewed the patient's current management strategies, emphasizing asthma control with albuterol and GERD treatment adherence. We discussed ongoing evaluations with pending blood work to address past anomalies like elevated calcium and glucose levels, which inform our management decisions going forward. I stressed the benefits of sleep hygiene improvements, anxiety disorder counseling, and polysubstance use support. I advised alcohol moderation and encouraged smoking/vaping cessation due to liver health issues, outlining risks and benefits precisely. Follow-up includes comprehensive evaluation next, and an emphasis was placed on continued communication about ongoing symptoms or complications. Patient Instructions - Continue using your albuterol inhaler as needed. - Follow the reflux management plan closely. - Practice good sleep hygiene. - Cut down on alcohol and attempt to stop vaping and smoking. - Stay hydrated and eat a balanced diet. - Exercise regularly but be cautious with lifting heavy objects. - Have your blood work done as requested. - Monitor for skin irritation and use lotion to prevent itchiness. - Attend counseling sessions as recommended. - If you have any concerns or symptoms, please contact immediately. Orders: Orders CT NG by PCR Today F41.1 - Generalized anxiety disorder Hepatitis B,C Profile Today F41.1 - Generalized anxiety disorder, R79.89 - Other specified abnormal findings of blood chemistry Parathyroid Hormone Intact Today F41.1 - Generalized anxiety disorder HIV Ab/Ag Today F41.1 - Generalized anxiety disorder Syphilis Screen Today F41.1 - Generalized anxiety disorder Referrals Psychiatry Referral F41.1 - Generalized anxiety disorder
== END 2025-02-28 08:57 | disposition home or self-care (01) ==
LOC: HO.HMCH 08:26
PROVIDERS: PCP Internal Medicine; Visit Provider Internal Medicine
DX: J45.20 Mild intermittent asthma, uncomplicated (principal); K21.9 Gastro-esophageal reflux disease without esophagitis; R73.02 Impaired glucose tolerance (oral); F41.1 Generalized anxiety disorder; F17.200 Nicotine dependence, unspecified, uncomplicated

== ENCOUNTER → 2025-02-28 08:25 | Outpatient (BNVA) | payer OTHER, SELFPAY | PROVIDERS: PCP Internal Medicine; Visit Provider Internal Medicine | DX: J45.20 Mild intermittent asthma, uncomplicated (principal); K21.9 Gastro-esophageal reflux disease without esophagitis; R73.02 Impaired glucose tolerance (oral); F41.1 Generalized anxiety disorder; Z87.891 Personal history of nicotine dependence | CPT/HCPCS: 99212 ==

== ENCOUNTER 2025-05-04 10:56 | Outpatient (REF) | payer OTHER, SELFPAY ==
--- OUTSIDE RECORDS SUMMARY | 2025-05-04 11:06 | XMS_ITS | Clinical Summary ---
Author Organization [facility] Address [address] [address] Phone Care Team Providers Care Dam Tender Assistant Name Role Phone Irasema Nugent MD Primary Care Provider [phone] Medications perphenazine (TRILAFON) 4 MG tablet TAKE 1 TABLET BY MOUTH TWICE A DAY 60 tablet 2 04/12/2023 Active Social History Tobacco Use Types Packs/Day Years Used Date Smoking Tobacco: Never Assessed Education Answer Date Recorded Are you interested in more education? Not on isaias e 04/12/2023 Are you concerned about learning? Not on file 04/12/2023 No 04/12/2023 No 04/12/2023 Digital Access Answer Date Recorded No 04/12/2023 No 04/12/2023 Reliable internet access at home? Not on file 04/12/2023 Device with a working camera? Not on file Sex and Gender Information Value Date Recorded Sex Assigned at Not on file Legal Sex Male 10:31 AM EDT Gender Identity Not on file Sexual Orientation Not on file Plan of Treatment Health Maintenance Due Date Last Done Comments Adult Td,Tdap Booster 1982 LIPID PANEL 1982 DEPRESSION SCREENING 1994 SMOKING Hx and SMOKELESS TOB ACCO SCREENING 1995 HEPATITIS C SCREENING 2000 HIV ONE-TIME SCREENING (18-6 5 YEARS) 2000 COVID-19 VACCINE (2023-2 5 season) 2024 HEPATITIS A VACCINES Aged Out No long er eligible based on patient's age to complete this topic HIB VACCINES Aged Out No longer eligi ble based on patient's age to complete this topic MENINGOCOCCAL VACCINES (ACWY) Aged Out No longer eligible based on patient's age to complete this topic MENINGOCOCCAL VACCINES (B) Aged Out N o longer eligible based on patient's age to complete this topic PNEUMOCOCCAL VACCINES (0-49 years) Aged Out No longer eligible based on patient's age to complete this topic Medical Devices Not on file Insurance Recordant [employer] Recordant [facility] Recordant C[employer] [place] [employer] [place]ALTH [employer]GET[employer] HEALTH [employer] HEALTH [employer] HEALTH [employer]HER Care Teams Dam Tender Assistant Relationship Specialty Start Date End Date Irasema Nugent MD [address] [place] [address] PCP - General Internal Medicine 06/02/17 Additional Source Comments The information contained in this document represents components of the legal health record. It is not the complete legal health record.[facility]
[2025-05-04 11:14] LABS: MANUAL DIFF FLAG NO
[2025-05-04 11:55] LABS: Hematocrit 42.8 % (42.0-52.0); Hemoglobin 14.5 g/dl (14.0-18.0); Imm Gran Abs Auto 0.05 X10*3/uL (0.00-0.03); Imm Gran Pct Auto 0.8 % (0.0-0.4); Lymphocytes Absolute Auto 1.7 X10*3/uL (1.2-4.9); Mean Corpuscular HGB Conc 33.9 g/dl (31.0-36.0); Mean Corpuscular Hemoglobin 30.0 pg (27.0-33.0); Mean Corpuscular Volume 88.6 fL (80.0-98.0); NRBC Abs Auto 0.000 X10*3/uL (0.0-0.012); NRBC Pct Auto 0.0 /100WBC (0.0-0.2); Platelet Count 358 X10*3/uL (160-400); Red Blood Count 4.83 X10*6/uL (4.60-5.80); White Blood Count 6.3 X10*3/uL (4.8-10.8)
[2025-05-04 12:00] LABS: Hemoglobin A1C 139.5593 umol/L; Total Hemoglobin (HGBA1C) 3751.1097 umol/L
[2025-05-04 12:29] LABS: Parathyroid Hormone Intact 56.9 pg/mL (8.7-77.1)
[2025-05-04 12:30] LABS: Alanine Aminotransferase 24 U/L (0-40); Albumin Level 4.6 g/dL (3.5-5.0); Alkaline Phosphatase 69 U/L (39-117); Anion Gap 12 (12-20); Aspartate Amino Transferase 37 U/L (5-37); Blood Urea Nitrogen 15 mg/dL (9-16); Calcium 9.2 mg/dL (8.4-10.2); Carbon Dioxide 26 mmol/L (22-29); Chloride 107 mmol/L (96-108); Cholesterol 131 mg/dL (<200); Estimated Glomerular Filt Rate > 60; HDL Cholesterol 35 mg/dL (>40); Potassium 4.0 mmol/L (3.3-5.1); Sodium 141 mmol/L (135-145); Total Protein 7.1 g/dL (6.5-8.0); Triglycerides 101 mg/dL (<150)
[2025-05-04 12:34] LABS: Syphilis Screen Nonreactive (Nonreactive)
[2025-05-04 12:38] LABS: Free T4 (Free Thyroxine) 0.88 ng/dL (0.71-1.85); Thyroid Stimulating Hormone 1.48 uIU/mL (0.32-4.0)
[2025-05-04 12:39] LABS: HBS Num1 > 1000.00 mIU/mL (0-7.99); HBc Num1 0.06 S/CO (0.00-0.79); HBsAGNum1 0.34 S/CO (0.00-0.99); HIV Num 1 0.05 S/CO (0.00-0.99); Hepatitis B Surface Antigen Negative (Negative); ~HepC Num1 0.09 S/CO (0.00-0.79); ~Hepatitis B Surface Antibody REACTIVE (Nonreactive); ~Hepatitis C Antibody Nonreactive (Nonreactive)
[2025-05-04 12:48] LABS: Folate 11.9 ng/mL (> or = 4.0); Vitamin B12 399 pg/mL (200-900)
== END 2025-05-04 10:57 | disposition home or self-care (01) ==
LOC: HO.LAB 10:56
PROVIDERS: PCP Internal Medicine; Visit Provider Internal Medicine
DX: Z11.4 Encounter for screening for human immunodeficiency virus [HIV] (principal); Z11.3 Encounter for screening for infections with a predominantly sexual mode of transmission; Z11.59 Encounter for screening for other viral diseases; R73.02 Impaired glucose tolerance (oral); F41.1 Generalized anxiety disorder; E78.00 Pure hypercholesterolemia, unspecified; K21.9 Gastro-esophageal reflux disease without esophagitis; R79.89 Other specified abnormal findings of blood chemistry
CPT/HCPCS: 36415; 80053; 80061; 82607; 82746; 83036; 83970; 84439; 84443; 85025; 86704; 86706; 86780; 86803; 87340; 87389

== ENCOUNTER 2025-05-10 11:45 | Outpatient (REF) | payer OTHER, SELFPAY ==
[2025-05-10 13:22] LABS: CT PCR Urine NOT DETECTED (Not Detect.); NG PCR Urine NOT DETECTED (Not Detect.)
== END 2025-05-10 11:46 | disposition home or self-care (01) ==
LOC: HO.LNP 11:45
PROVIDERS: Visit Provider Internal Medicine
DX: F41.1 Generalized anxiety disorder (principal)
CPT/HCPCS: 87491; 87591

== ENCOUNTER 2025-07-05 06:43 | Emergency (ER) | payer OTHER, SELFPAY ==
--- NOTE | ~2025-07-05 | XR_ITS ---
EXAMINATION: XR CHEST CLINICAL INFORMATION: cough COMPARISON: 11/15/2018. TECHNIQUE: AP view of the chest was obtained. FINDINGS: The cardiac, hilar, and mediastinal contours are normal. The lungs are mildly hyperaerated, however clear bilaterally. No pneumothorax or effusion. No focal osseous or soft tissue abnormality. XR/XR chest 1V IMPRESSION: No active pulmonary disease. Electronically signed by: Ramo Brown MD 07/05/2025 08:11 AM EDT
--- NOTE | 2025-07-05 06:45 | ECG_ITS ---
Test Reason : CP Blood Pressure : */* mmHG Vent. Rate : 88 BPM Atrial Rate : 88 BPM P-R Int : 96 ms QRS Dur : 96 ms QT Int : 350 ms P-R-T Axes : 77 70 45 degrees QTcB Int : 423 ms Sinus rhythm with short DE Minimal voltage criteria for LVH, may be normal variant ( Sokolow-Ibanez ) Borderline ECG When compared with ECG of 08-Sep-2022 15:04, No significant change was found Referred By: Generic ED Physician Electronically Signed By: Hugo Delarosa
[2025-07-05 07:03] VITALS: BP 125/74; PULSE 88; RESP 18; TEMP 36.8; O2SAT 96; BMI 23.4
--- NOTE | 2025-07-05 07:14 | ED.URI ---
HPI - URI/Sore Throat General Chief Complaint: Upper Respiratory Symptoms Stated Complaint: chest tightness Time Seen by Provider: 07/05/25 07:08 Source: patient Mode of arrival: ambulatory Limitations: no limitations History of Present Illness ED Provider: DR. Ennis HPI Narrative: 45-year-old male history of asthma, history of vaping otherwise no tobacco smoking or weight smoking presented for 2 nights of chest tightness, coughing, congestion, stuffed nose, sore throat, generalized weakness, generalized body ache presented with increased tightness of the chest and shortness of breath, +chills, no fever, no exposure to sick contacts, no recent travel. No known history of CAD. Related Data Previous Rx's ?Medication ?Instructions ?Recorded albuterol sulfate 90 mcg/actuation 2 puff PO Q4-6H PRN for wheezing 06/14/25 aerosol inhaler (Ventolin HFA) #8.5 grams albuterol sulfate 2.5 mg/3 mL 2.5 mg (3 mL) inhalation QID PRN 07/05/25 (0.083 %) solution for nebulization shortness of breath or wheezing #75 mL albuterol sulfate 90 mcg/actuation 2 inh inhalation Q4-6H PRN 07/05/25 breath activated powder inhaler shortness of breath or wheezing #1 ea azithromycin 250 mg tablet See Rx Instructions PO .COMPLEX #6 07/05/25 (Zithromax) tabs prednisone 20 mg tablet 20 mg PO BID #10 tabs 07/05/25 Allergies Allergy/AdvReac Type Severity Reaction Status Date / Time No Known Allergies Allergy Verified 07/05/25 07:05 Review of Systems Review of Systems: All other systems are reviewed and are negative Constitutional: Reports as per HPI and Reports no additional constitutional complaints Eyes: Reports as per HPI and Reports no additional eye complaints Reports system reviewed and no additional complaints, except as documented Cardiovascular: Reports as per HPI and Reports no additional cardiovascular complaints Respiratory: Reports as per HPI and Reports no additional respiratory complaints Gastrointestinal: Reports as per HPI and Reports no additional gastrointestinal complaints Genitourinary: Reports no additional female genitourinary complaints Musculoskeletal: Reports no additional musculoskeletal complaints Skin/Breast: Reports system reviewed and no additional complaints, except as docu Psychiatric: Reports no additional psychiatric complaints Endocrine: Reports no additional endocrine complaints Hematologic/Lymphatic: Reports no additional hematologic/lymphatic complaints Allergic/Immunologic: Reports no additional allergic/immunologic complaints Reports system reviewed and no additional complaints, except as documented and Reports Abnormal speech present [facility] Past Medical History Medical History Overweight (BMI 25.0-29.9) Gonorrhea Fracture of finger, middle phalanx, left, closed Insect bites Tinea pedis Anxiety Brea Acute psychosis Polysubstance abuse Alcohol abuse Alopecia Insomnia GERD (gastroesophageal reflux disease) Marijuana smoker Asthma Surgical History Hx of appendectomy Family History Family History Father Lung cancer Mother CVA (cerebral vascular accident) Diabetic acetonemia Brother Multiple sclerosis Sister Multiple sclerosis Maternal Aunt Skin cancer Social History Social History Household Members: Family Housing: House Housing Other:: Initially stated that he lives with mother & then reports he is homeless Are you a primary hospice spiritual care coordinator to a significant other at home: No Do you presently have visiting nurse or other home services: No Alcohol intake: current Alcohol intake frequency: a few times a week Comment: twice a month 3-4 beers, 3x a month 4 beers (02/2025) Patient Tobacco Use Status: Former Tobacco user Tobacco use type: Cigarette Years Smoked: quit 06/2021vape (10/2024) e-Cigarette/Vaping Use: Currently Using Second Hand Smoke Exposure: No Substance Use Type: Crack/Cocaine, Marijuana and Opiates Advance Directives: No Advance Directives Information Provided: Yes Do you have a plan to hurt others: No Plan service: No Current occupational status: employed Current occupational exposures/hazards: No Sexual orientation: Don't Know Cognitive needs: No Hearing needs: No Vision needs: No Physical Exam Vital Signs: Vital Signs: Last Vital Signs Temp 98.3 F 07/05/25 07:03 Pulse 93 07/05/25 07:36 Resp 18 07/05/25 07:36 BP 125/74 07/05/25 07:03 Pulse Ox 96 07/05/25 07:03 O2 Del Method Room Air 07/05/25 07:03 BMI result Body Mass Index 23.4 Vital signs have been reviewed and appear to be correct. Blood pressure elevated. Heart rate normal. Respiratory rate normal. Temperature normal. Oxygen saturation normal. Appearance: Alert. Oriented X3. No acute distress. Head: Normal external exam. Normocephalic. Atraumatic. No Wilder signs noted. No raccoon eyes noted Eyes: PERRLA. EOMI. Conjunctiva and sclera normal. Eyelids normal. ENT: TM's Normal. Pharynx normal. Uvula midline. Moist mucous membranes. No trismus noted. No drooling noted. No muffled voice noted. Neck: Normal inspection. Neck supple. FROM. No adenopathy. Thyroid Normal. No meningeal signs. No neck mass noted. CVS: Normal heart rate and rhythm. Heart sound normal. No murmurs noted. Pulses normal throughout. Respiratory: No respiratory distress. Painless inspiration. Breath sounds normal. Bilateral expiratory wheezing with prolonged expiration. Chest nontender. No accessory muscle usage noted or decreased air movement noted. Abdomen: Soft and nontender. Bowel sounds normal in all 4 quadrants. No distention noted. No organomegaly noted. No visible injury noted. Back: No CVA tenderness. Full range of motion noted. Skin: Skin warm and dry. Normal skin color. Normal skin turgor. No rashes/lesions/lacerations noted. Extremities: No lower extremity edema. Extremities exhibit normal range of motion. Extremities nontender. Neuro: Oriented X 3. Cranial nerve exam: II-XII are grossly intact No motor deficit. No sensory deficit. Reflexes normal. Course Reevaluation(s) Reevaluation #1: Acute bronchitis. Start the patient on bronchodilator, prednisone, Z-Jose Alberto. Time: 09:13 Medications Administered Discontinued Medications Generic Name Dose Route Start Last Admin Trade Name Freq PRN Reason Stop Dose Admin Albuterol Sulfate 5 mg/ 0 mg 07/05/25 07:30 07/05/25 07:34 Albuterol/Ipratropium 3 ml INHALE 07/05/25 07:31 2.5 each ONCE ONE Administration Prednisone 60 mg 07/05/25 07:13 07/05/25 07:36 Prednisone 20 Mg Tablet PO 07/05/25 07:14 60 mg ONCE ONE Administration Medical Decision Making Differential Diagnosis Differential Diagnoses: The differential diagnosis associated with the presentation includes (Pneumonia, pneumothorax, pleural effusion, acute bronchitis, viral upper respiratory infection.) Admission/Observation Consideration of admission/observation: Escalation of care including admission/observation considered Lab Data MDM Lab Attestation statement: I reviewed the patient's lab results. 07/05/25 08:13 07/05/25 08:13 Labs: Lab Results 07/05/25 07/05/25 Range/Units 08:13 08:15 WBC 14.6 H (4.8-10.8) X10*3/uL RBC 4.48 L (4.60-5.80) X10*6/uL Hgb 13.6 L (14.0-18.0) g/dl Hct 40.8 L (42.0-52.0) % MCV 91.1 (80.0-98.0) fL MCH 30.4 (27.0-33.0) pg MCHC 33.3 (31.0-36.0) g/dl RDW 14.6 (11.0-16.0) % Plt Count 336 (160-400) X10*3/uL MPV 9.7 (9.4-12.4) fL Immature Gran % (Auto) Cancelled Neut % (Auto) Cancelled Lymph % (Auto) Cancelled [place] % (Auto) Cancelled Eos % (Auto) Cancelled Baso % (Auto) Cancelled Lymph # (Auto) Cancelled [place] # (Auto) Cancelled Eos # (Auto) Cancelled Baso # (Auto) Cancelled Abs Immat Gran (auto) Cancelled Absolute Neuts (auto) Cancelled Absolute Nucleated RBC 0.000 (0.0-0.012) X10*3/uL Nucleated RBC % (auto) 0.0 (0.0-0.2) /100WBC Neutrophils % (Manual) 78 H (45-73) % Lymphocytes % (Manual) 13 L (20-40) % Atypical Lymphs % (Man) 2 (0-6) % Monocytes % (Manual) 6 (2-11) % Eosinophils % (Manual) 1 (0-4) % Lymphocytes # (Manual) 1.9 (1.2-4.9) X10*3/uL Atyp Lymphs # (Manual) 0.3 x10*3/uL Monocytes # (Manual) 0.9 (0.1-1.2) X10*3/uL Eosinophils # (Manual) 0.1 (0.0-0.4) X10*3/uL Toxic Vacuolation PRESENT Platelet Estimate NORMAL (NORMAL) Large Platelets PRESENT Plt Morphology Comment NOTED RBC Morphology NORMAL Sodium 139 (135-145) mmol/L Potassium 4.0 (3.3-5.1) mmol/L Chloride 108 (96-108) mmol/L Carbon Dioxide 24 (22-29) mmol/L Anion Gap 11 L (12-20) BUN 13 (9-16) mg/dL Creatinine 0.75 (0.5-1.4) mg/dL Estim Creat Clear Calc 110.4 Estimated GFR > 60 Random Glucose 107 (60-115) mg/dL Calcium 9.0 (8.4-10.2) mg/dL Troponin I High Sens < 2.7 (<3.5-35.0) ng/L COVID-19 (MAU) Negative (Negative) COVID-19 Clin Com See Note Influenza Type A (TAZ) Negative (Negative) Influenza Type B (TAZ) Negative (Negative) Influenza A & B Note See Note Independent Interpretation I performed an independent interpretation of an: Plain X-Ray (Chest: No acute pulmonary disease.) Radiology Impression Discussion of test interpretation with radiology: I have reviewed the radiologist's reading. Discharge Plan Discharge Clinical Impression: Bronchitis Patient Disposition: Home, Self-Care Instructions: Acute Bronchitis (ED) Prescriptions: New azithromycin [Zithromax] 250 mg tablet See Rx Instructions .ROUTE .COMPLEX Qty: 6 0RF Rx Instructions: For 250 mg dose pack: take 500 mg today (day 1), then 250 mg for 4 days (days 2-5) albuterol sulfate 90 mcg/actuation aerosol powdr breath activated 2 inh inhalation Q4-6H PRN (Reason: shortness of breath or wheezing) Qty: 1 0RF albuterol sulfate 2.5 mg /3 mL (0.083 %) solution for nebulization 2.5 mg inhalation QID PRN (Reason: shortness of breath or wheezing) Qty: 75 0RF prednisone 20 mg tablet 20 mg PO BID Qty: 10 0RF No Action albuterol sulfate [Ventolin HFA] 90 mcg/actuation HFA aerosol inhaler 2 puff PO Q4-6H PRN (Reason: for wheezing) Qty: 8.5 0RF Referrals: Po,Lorenver O, MD [Primary Care Provider, Internal Medicine] Stand Alone Forms: Work/School Release Print Language: [place]
--- OUTSIDE RECORDS SUMMARY | 2025-07-05 07:32 | XMS_ITS | Clinical Summary ---
Author Organization [facility] Address [address] [address] Phone Care Team Providers Care Polisher Balance Screwhead Name Role Phone Irasema Nugent MD Primary Care Provider [phone] Medications perphenazine (TRILAFON) 4 MG tablet TAKE [...] HIV ONE-TIME SCREENING (18-6 5 YEARS) 2000 INFLUENZA VACCINE (#1) 2025 COVID-19 VACCINE (2023-2 5 season) 2025 HEPATITIS A VACCINES Aged Out No long [...] topic Medical Devices Not on file Insurance [employer] TO[employer]HER [employer] CAREM[employer]ylib TOGETHER [employer] C[employer] TOGETHER [employer] TOGETHER HEALTH CAREPLUS TOGETHER [employer] TOGETHER HEALTH CAREPLUS TOGETHER HEALTH CAREPLUS TOGETHER [place] [employer] TOGET[employer] Care Teams Polisher Balance Screwhead Relationship Specialty Start Date End Date Raffi, Irasema Owen MD [address] [place] [address] PCP - General Internal Medicine 06/02/17 Additional Source Comments The information contained in this document represents components of the legal health record. It is not the complete legal health record.[facility]
[2025-07-05] MEDS: Albuterol Sulfate 5 MG, Albuterol/Iprat 2.5/0.5MG 3 ML 3 ML INHALE (07:34)
[2025-07-05 07:36] VITALS: PULSE 93; RESP 18; O2SAT 97
[2025-07-05 08:24] LABS: Hematocrit 40.8 % (42.0-52.0); Hemoglobin 13.6 g/dl (14.0-18.0); Mean Corpuscular HGB Conc 33.3 g/dl (31.0-36.0); Mean Corpuscular Hemoglobin 30.4 pg (27.0-33.0); Mean Corpuscular Volume 91.1 fL (80.0-98.0); NRBC Abs Auto 0.000 X10*3/uL (0.0-0.012); NRBC Pct Auto 0.0 /100WBC (0.0-0.2); Platelet Count 336 X10*3/uL (160-400); Red Blood Count 4.48 X10*6/uL (4.60-5.80); White Blood Count 14.6 X10*3/uL (4.8-10.8)
[2025-07-05 08:36] LABS: COVID-19 Test Negative (Negative); IDNOW Serial# 6674DD1D
[2025-07-05 08:36] LABS: Anion Gap 11 (12-20); Blood Urea Nitrogen 13 mg/dL (9-16); Calcium 9.0 mg/dL (8.4-10.2); Carbon Dioxide 24 mmol/L (22-29); Chloride 108 mmol/L (96-108); Creatinine Clr Calc Pharmacy 110.4; Estimated Glomerular Filt Rate > 60; Potassium 4.0 mmol/L (3.3-5.1); Sodium 139 mmol/L (135-145)
[2025-07-05 08:45] LABS: Troponin-I High Sensitivity < 2.7 ng/L (<3.5-35.0)
[2025-07-05 08:47] LABS: IDNOW Serial# 16C4AD1C; Influenza B2 Negative (Negative)
[2025-07-05 08:53] LABS: Atypical Lymph Absolute Manual 0.3 x10*3/uL; Atypical Lymphs Percent Manual 2 % (0-6); Eosinophils Absolute Manual 0.1 X10*3/uL (0.0-0.4); Eosinophils Percent Manual 1 % (0-4); Lymphocytes Absolute Manual 1.9 X10*3/uL (1.2-4.9); Lymphocytes Percent Manual 13 % (20-40); Monocytes Absolute Manual 0.9 X10*3/uL (0.1-1.2); Monocytes Percent Manual 6 % (2-11); Neutrophils Percent Manual 78 % (45-73)
[2025-07-05 08:54] LABS: Large Platelet PRESENT; RBC Morphology NORMAL; Toxic Vacuolation PRESENT
[2025-07-05 09:38] VITALS: BP 104/74; PULSE 87; RESP 18; TEMP 36.8; O2SAT 98
[2025-07-05 10:09] LABS: Band Neutrophils Percent 0 % (3-5); Neutrophils Absolute Manual 11.4 X10*3/uL (2.0-8.3)
== END 2025-07-05 09:38 | disposition home or self-care (01) ==
PROVIDERS: Emergency Provider Emergency Medicine; PCP Internal Medicine
DX: J40 Bronchitis, not specified as acute or chronic (principal); R07.89 Other chest pain; R05.9 Cough, unspecified; R09.81 Nasal congestion; J02.9 Acute pharyngitis, unspecified; Z11.52 Encounter for screening for COVID-19; Z79.899 Other long term (current) drug therapy
CPT/HCPCS: 36415; 71045; 80048; 84484; 85007; 85027; 87502; 87635; 93005; 94640; 99284

== ENCOUNTER → 2025-07-05 06:45 | Outpatient (BNV) | payer OTHER, SELFPAY | PROVIDERS: Emergency Provider Emergency Medicine; PCP Internal Medicine; Visit Provider Internal Medicine Cardiovascular Disease | DX: R07.89 Other chest pain (principal) | CPT/HCPCS: 93010 ==

== ENCOUNTER → 2025-07-05 07:30 | Outpatient (BNV) | payer OTHER, SELFPAY | PROVIDERS: Emergency Provider Emergency Medicine; PCP Internal Medicine; Visit Provider Radiology Diagnostic Radiology | DX: R05.9 Cough, unspecified (principal) | CPT/HCPCS: 71045 ==

== ENCOUNTER 2025-09-08 11:09 | Emergency (ER) | payer OTHER, SELFPAY ==
--- NOTE | ~2025-09-08 | XR_ITS ---
CLINICAL HISTORY: crush injury middle finger 3 view right middle finger Comparison: None provided Findings: Comminuted mildly displaced fracture involving the tuft of the middle finger distal phalanx with adjacent soft tissue injury. No definite radiopaque foreign bodies. Mildly displaced intra-articular fracture involving the dorsal base of the middle finger distal phalanx. No significant osteoarthritis. IMPRESSION: 1. Comminuted mildly displaced fracture involving the tuft of the middle finger distal phalanx with adjacent soft tissue injury. 2. Mildly displaced mallet fracture of the middle finger distal phalanx. This document has been electronically signed by: Shashank Gonzales DO on 09/08/2025 12:38:07
[2025-09-08 11:17] VITALS: BP 101/61; PULSE 100; RESP 22; TEMP 35.4; O2SAT 98; BMI 22.5
--- NOTE | 2025-09-08 11:20 | ED_ITS ---
HPI - General Adult General Chief complaint: Extremity Injury, Upper Stated complaint: finger laceration Time Seen by Provider: 09/08/25 13:57 Source: patient Mode of arrival: ambulatory Limitations: no limitations History of Present Illness ED Provider: Eden Hernández PA-C HPI narrative: Patient is a 45 year old assigned male at with a history of anemia, asthma, GERD, insomnia, tobacco use, and TRINI presenting to the emergency department today with a right middle finger injury. Patient states that he is right hand dominant. Patient states that he got his right middle finger smashed between a hitch of a uhaul and a vehicle. Patient states that he does not know when his last tetanus shot was. Patient denies any other complaints at this time. Related Data Previous Rx's ?Medication ?Instructions ?Recorded albuterol sulfate 2.5 mg/3 mL 2.5 mg (3 mL) inhalation QID PRN 07/05/25 (0.083 %) solution for nebulization shortness of breat h or wheezing #75 mL albuterol sulfate 90 mcg/actuation 2 inh inhalation Q4 -6H PRN 07/05/25 breath activated powder inhaler shortness of breath or wheezing #1 ea azithromycin 250 mg tablet See Rx Instructions PO .COM PLEX #6 07/05/25 (Zithromax) tabs prednisone 20 mg tablet 20 mg PO BID #10 tabs albuterol sulfate 90 mcg/actuation 2 puff PO Q4-6H PRN for wheezing 08/14/25 aerosol inhaler (Ventolin HFA) #8.5 grams amoxicillin 875 mg-potassium 1 tab PO BID 10 days #20 tabs 09/08/25 clavulanate 125 mg tablet Allergies Allergy/AdvReac Type Severity Reaction Status Date / Time No Known Allergies Allergy Verified 09/08/25 11:22 Review of Systems 2 Constitutional: Constitutional: Reports as per HPI Eyes: Eyes: Reports as per HPI ENT: Reports as per HPI Cardiovascular: Cardiovascular: Reports as per HPI Respiratory: Respiratory: Reports as per HPI Gastrointestinal: Gastrointestinal: Reports as per HPI Genitourinary: Genitourinary: Reports as per HPI Musculoskeletal: Musculoskeletal: Reports as per HPI Integumentary/Breasts: Skin/Breast: Reports as per HPI Neurologic: Reports as per HPI Psychiatric: Psychiatric: Reports as per HPI Endocrine: Endocrine: Reports as per HPI Hematologic/Lymphatic: Hematologic/Lymphatic: Reports as per HPI Allergic/Immunologic: Allergic/Immunologic: Reports as per HPI PMFSH Past Medical History Attestation statement: The following information was validated with the patient. Source: old records reviewed and nursing notes reviewed Medical History Overweight (BMI 25.0-29.9) Gonorrhea Fracture of finger, middle phalanx, left, closed Insect bites Tinea pedis Anxiety Brea Acute psychosis Polysubstance abuse Alcohol abuse Alopecia Insomnia GERD (gastroesophageal reflux disease) Marijuana smoker Asthma Surgical History Hx of appendectomy Family History Family History Father Lung cancer Mother CVA (cerebral vascular accident) Diabetic acetonemia Brother Multiple sclerosis Sister Multiple sclerosis Maternal Aunt Skin cancer Social History Social History Household Members: Family Housing: House Housing Other:: Initially stated that he lives with mother & then reports he is homeless Are you a primary health care marketing specialist to a significant other at home: No Do you presently have visiting nurse or other home services: No Alcohol intake: current Alcohol intake frequency: a few times a week Comment: twice a month 3-4 beers, 3x a month 4 beers (02/2025) Patient Tobacco Use Status: Former Tobacco user Tobacco use type: Cigarette Years Smoked: quit 06/2021vape (10/2024) e-Cigarette/Vaping Use: Currently Using Second Hand Smoke Exposure: No Substance Use Type: Crack/Cocaine, Marijuana and Opiates Advance Directives: No Advance Directives Information Provided: Yes Do you have a plan to hurt others: No Plan service: No Current occupational status: employed Current occupational exposures/hazards: No Sexual orientation: Don't Know Cognitive needs: No Hearing needs: No Vision needs: No Physical Exam ED Vital Signs: Vital Signs - 24 hr 09/08/25 11:17 09/08/25 15:09 Temperature 95.7 F L 95.7 F L Pulse Rate 100 100 Respiratory Rate 22 H 22 H Blood Pressure 101/61 101/61 Pulse Oximetry 98 98 Oxygen Delivery Method Room Air Room Air BMI result Body Mass Index 22.5 Const General: cooperative, no acute distress, alert and awake Nutritional Appearance: well nourished Orientation/consciousness: patient oriented x3 HENMT Head: Yes normal to inspection and Yes atraumatic Ears: hearing grossly normal bilaterally and external ears normal General nose exam: Normal external nose present, no nasal discharge noted and no epistaxis Face and sinus: Yes normal facial exam, No abrasion and No laceration Mouth: Normal oral and palatal mucosa present, no drooling and no muffled voice Eyes General: appearance normal, both eyes and all related structures Periorbital: periorbital findings normal Eyelids: Yes eyelids normal Conjunctivae: conjunctivae normal Pupils: Equal, round and reactive pupils present EOM: EOMs intact bilaterally Neck Neck: Yes normal visual inspection and Yes full ROM Resp Effort & Inspection: normal respiratory effort and able to speak in complete sentences Neuro General: patient oriented x3, moves all extremities and CN's II-XI intact bilaterally Cranial nerves: Yes Equal, round and reactive pupils present Cognition (Neuro): normal cognition Extrem Other: General: Yes capillary refill normal Psych Appearance: grossly normal Mental Status: mental status grossly normal Affect: normal affect Attitude: cooperative Thought process: Normal thought process present Thought content: Normal thought content present Insight: Good insight present (Psych) Course Course Course Narrative: This is a Rapid Medical Examination (RME) performed by Aileen Lozano PA-C in triage. Full HPI, ROS, assessment and treatment plan per primary provider in the Main ED. 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 PE/vitals: patient hyperventilating, anxious. noted swelling to distal right 3rd digit w/ subungal hematoma and linear laceration just proximal to nail. bleeding controlled in triage, gauze applied. Plan: xrs, tdap, lac repair Medications Administered Discontinued Medications Generic Name Dose Route Start Last Admin Trade Name Freq PRN Reason Stop Dose Admin Acetaminophen 975 mg 09/08/25 14:05 09/08/25 14:39 Acetaminophen 325 Mg Tablet PO 09/08/25 14:06 975 mg ONCE ONE Administration Amoxicillin/Clavulanate Potassium 875 mg 09/08/25 14:27 09/08/25 14:38 Amoxicillin/Potassium Clav 875 Mg Tablet PO 09/08/25 14:28 875 mg ONCE ONE Administration Diphtheria/Tetanus/Acell Pertussis 0.5 ml 09/08/25 11:19 09/08/25 14:36 Diphth,Pertus(Acell),Tet Adult 0.5 Ml Syringe IM 09/08/25 11:20 0.5 ml .ONCE ONE Administration Ketorolac Tromethamine 15 mg 09/08/25 14:05 09/08/25 14:37 Ketorolac Tromethamine 15 Mg/Ml Vial IM 09/08/25 14:06 15 mg ONCE ONE Administration Oxycodone HCl 10 mg 09/08/25 14:05 09/08/25 14:40 Oxycodone Hcl Immed Release 5 Mg Tablet PO 09/08/25 14:06 10 mg ONCE ONE Administration Medical Decision Making Medical Decision Making [facility] Narrative: Patient is a 45 year old assigned male at with a history of anemia, asthma, GERD, insomnia, tobacco use, and TRINI presenting to the emergency department today with a right middle finger injury. Patient states that he is right hand dominant. Patient's physical exam was as noted in the physical exam portion of this note. Patient's right finger x-ray showed a comminuted mildly displaced fracture involving the tuft of the middle finger distal phalanx and a mildly displaced mallet fracture of the middle distal phalanx. Patient was brought up to date on tetanus. Patient was given PO tylenol, IM Toradol, and PO oxycodone. I spoke with the orthopedic team who recommended cleaning the area, splinting the finger, and having him follow up on an outpatient basis with prophylactic antibiotic I explained my physical exam findings as well as all test results to the patient. I answered all questions asked by the patient. Patient's laceration was cleaned thoroughly, without incident. Patient's wound edges could not be approximated due to the thinness of the skin edges. Patient's wound was covered with xeroform. Patient's finger was splinted with a finger splint - without incident. Patient's PMS was intact prior to and after splint placement. I stressed the importance of the patient taking his medication as directed (either prescribed or as the over the counter packaging recommends). I stressed the importance of the patient following up with his primary care provider and the orthopedic team. I stressed the importance of the patient returning to the emergency department immediately if his symptoms were to worsen or if he were to develop any dizziness, shortness of breath, difficulty breathing, chest pain, blurry vision, loss of vision, nausea, vomiting, abdominal pain, fever, chills, back pain, or any other complaints. Patient verbalized agreement and understanding with this treatment plan and discharge. Differential Diagnosis Differential Diagnoses: The differential diagnosis associated with the presentation includes Finger laceration Finger fracture Tendon injury Admission/Observation Consideration of admission/observation: Escalation of care including admission/observation considered Patient would have been admitted to the hospital had his work up had any findings where hospital admission was appropriate and his clinical presentation warranted hospital admission. Consult Healthcare Provider Management of the patient was discussed with: Porter Luggage (I spoke with the orthopedic team as noted in the MDM Rationale portion of this note. ) Independent Interpretation I performed an independent interpretation of an: Plain X-Ray Interpretation: My interpretation is in agreement with the radiologist's impression of this imaging study as written below. CLINICAL HISTORY: crush injury middle finger 3 view right middle finger Comparison: None provided Findings: Comminuted mildly displaced fracture involving the tuft of the middle finger distal phalanx with adjacent soft tissue injury. No definite radiopaque foreign bodies. Mildly displaced intra-articular fracture involving the dorsal base of the middle finger distal phalanx. No significant osteoarthritis. IMPRESSION: 1. Comminuted mildly displaced fracture involving the tuft of the middle finger distal phalanx with adjacent soft tissue injury. 2. Mildly displaced mallet fracture of the middle finger distal phalanx. This document has been electronically signed by: Shashank Gonzales DO on 09/08/2025 12:38:07 Dictated By: Shashank Gonzales MD Signed By: Electronically signed by Shashank Gonzales MD 09/08/25 1239 Radiology Impression Discussion of test interpretation with radiology: I have reviewed the radiologist's reading. Prescription Management I considered prescription management with: Antibiotic (patient prescribed prophylactic antibiotic for open fracture) Critical Care Time Critical Care Time Critical Care Time: Yes Total Critical Care Time: 34 Attestation: I spent 34 minutes of Critical Care Time with this patient. This does not include time spent on separately reported billable procedures. Discharge Plan Discharge Clinical Impression: Finger fracture Qualifiers: Encounter type: initial encounter Finger: middle finger Fracture type: open P halanx: distal Fracture alignment: displaced Laterality: right Qualified Code(s): S62.632B - Displaced fracture of distal phalanx of right middle finger, initial encounter for open fracture Patient Disposition: Home, Self-Care Instructions: Finger Fracture (ED) Additional Instructions: Do NOT bear weight / use the splinted extremity. Do NOT stick anything down / into your splint. Do NOT get your splint wet. Do NOT remove your splint. If you have any change in sensation, movement, or color of your right middle finger - you may loosen the outer wrap. If you find yourself loosening the wrap to the point of seeing the white splint material underneath - STOP and proceed to your closest Emergency Department, immediately. Follow up with your primary care provider and the orthopedic team. Take your antibiotic as prescribed. Return to the emergency department immediately if your symptoms worsen or if you develop any numbness, tingling, dizziness, shortness of breath, difficulty breathing, chest pain, blurry vision, loss of vision, nausea, vomiting, abdominal pain, fever, chills, back pain, or any other complaints. Please see the information below about our Patient Portal. If you are not yet enrolled in the [facility] Patient Portal, you will receive an enrollment email invitation following your visit to any [facility] setting. You may also self-enroll in the Patient Portal by visiting our website: [email or web address] The following information is required to access the Patient Portal: - Your [facility] Medical Record Number - Your personal home email address (must match what is in your electronic medical record, Registration staff can assist with this) - Name - Date of Capabilities of the Patient Portal: - Message some providers - View upcoming appointments - Access your health summary, medical history, and visit history - View current conditions and allergies - View procedure and lab results - View your medications, including guidelines, side effects, and precautions - Complete pre-appointment questionnaires requested by your provider - Ready summary reports of your office visits and procedures To access the Patient Portal Mobile Milla, follow these directions: - Search [facility] in the Milla Store or Google Play Store - Download the Milla - Search for [facility] - Enter your login/password Prescriptions: New amoxicillin-pot clavulanate 875-125 mg tablet 1 tab PO BID 10 Days Qty: 20 0RF No Action albuterol sulfate [Ventolin HFA] 90 mcg/actuation HFA aerosol inhaler 2 puff PO Q4-6H PRN (Reason: for wheezing) Qty: 8.5 0RF azithromycin [Zithromax] 250 mg tablet See Rx Instructions .ROUTE .COMPLEX Qty: 6 0RF Rx Instructions: For 250 mg dose pack: take 500 mg today (day 1), then 250 mg for 4 days (days 2-5) albuterol sulfate 90 mcg/actuation aerosol powdr breath activated 2 inh inhalation Q4-6H PRN (Reason: shortness of breath or wheezing) Qty: 1 0RF albuterol sulfate 2.5 mg /3 mL (0.083 %) solution for nebulization 2.5 mg inhalation QID PRN (Reason: shortness of breath or wheezing) Qty: 75 0RF prednisone 20 mg tablet 20 mg PO BID Qty: 10 0RF Referrals: [facility] Orthopedic Surgeons [Provider Group] Referral Note: Call to establish and follow up with the orthopedic team. Irasema Nugent MD [Primary Care Provider, Internal Medicine] Stand Alone Forms: Work/School Release Interventions: ED Discharge Assessment Last Done: 09/08/25 15:09 Discharge Date/Time: 09/08/25 15:10 Print Language: Slovak
--- OUTSIDE RECORDS SUMMARY | 2025-09-08 13:53 | XMS_ITS | Clinical Summary ---
Author Organization [facility] Address [address] [address] Phone Care Team Providers Care Butadiene Converter Operator Name Role Phone Irasema Nugent MD Primary Care Provider [phone] Medications perphenazine (TRILAFON) 4 MG tablet TAKE [...] 2000 INFLUENZA VACCINE (#1) 2025 COVID-19 VACCINE ( - 2024-2 6 season) 2025 HEPATITIS A VACCINES Aged Out [...] topic Medical Devices Not on file Insurance [employer] CARE[employer]US TOGETHER [employer]ARE[employer] TOGETHER [employer] CAREPLUS TOGETHER [employer] CAREPLUS TOGETHER HEALTH CAREPLUS TOGETHER [facility] CAREPLUS TOGETHER HEALTH CAREPLUS TOGETHER HEALTH CAREPLUS TOGETHER [employer] TOGETHER Care Teams Butadiene Converter Operator Relationship Specialty Start Date End Date Raffi, Irasema Owen MD [address] [place] [address] PCP - General Internal Medicine 06/02/17 Additional Source Comments The information contained in this document represents components of the legal health record. It is not the complete legal health record.[facility]
[2025-09-08] MEDS: Diphth,Pertus(ACell),Tet Adult 0.5 ML SYRINGE IM (14:36)
[2025-09-08] MEDS: oxyCODONE HCl Immed Release 5 MG TABLET 10 MG PO (14:40)
[2025-09-08 15:09] VITALS: BP 101/61; PULSE 100; RESP 22; TEMP 35.4; O2SAT 98
== END 2025-09-08 15:10 | disposition home or self-care (01) ==
PROVIDERS: Emergency Provider Emergency Medicine; PCP Internal Medicine
DX: S62.632A Displaced fracture of distal phalanx of right middle finger, initial encounter for closed fracture (principal); M79.644 Pain in right finger(s); X58.XXXA Exposure to other specified factors, initial encounter; Y29.XXXA Contact with blunt object, undetermined intent, initial encounter; Y93.9 Activity, unspecified; Y92.812 Truck as the place of occurrence of the external cause; Y99.8 Other external cause status; Z23 Encounter for immunization
CPT/HCPCS: 73140; 90471; 90715; 96372; 99283; 99284; J1885

== ENCOUNTER → 2025-09-08 11:19 | Outpatient (BNV) | payer OTHER, SELFPAY | PROVIDERS: PCP Internal Medicine; Visit Provider Radiology Diagnostic Radiology | DX: S62.632B Displaced fracture of distal phalanx of right middle finger, initial encounter for open fracture (principal) | CPT/HCPCS: 73140 ==

== ENCOUNTER 2025-09-11 10:04 | Outpatient (AMB) | payer OTHER, SELFPAY ==
--- NOTE | 2025-09-11 10:23 | A.OFFVIS_ITS ---
Vital Signs 09/11/25 10:27 Height 5 ft 5 in Weight 135 lb BMI 22.5 Intake Visit Reasons: FC-right middle finger injury Intake Note: Ifeanyi 45 yr old right hand dominant male who works at [employer] presents today for a fracture care visit [place] [facility] [place]. 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 Seen [place] [facility] [place] finger cleaned and wrapped up. Patient was advise to finish taking his anti-biotics. He is currently complaining of pain and numbness. Patient was splinted and advise to follow up with Dr Sanchez. Allergies No Known Allergies Allergy (Verified 09/11/25 10:31) HPI HPI FC-right middle finger injury: Details: Ifeanyi is a 45 year old right hand dominant man who presents for a right middle finger crush injury. He smashed his finger between a vehicle & a [employer] hitch, DOI: 09/08/25. This happened while he was doing work there at the [employer]. He was seen in the ED, splinted, and given Abx. He complains of pain & numbness to the tip of his middle finger. He says he has anxiety problems and is hesitant to have surgery. He works at [employer], and he says he was in training for a second job when he was injured. He says he was getting paid under the table for this second job [facility] Medical History Overweight (BMI 25.0-29.9) Gonorrhea Fracture of finger, middle phalanx, left, closed Insect bites Tinea pedis Anxiety Brea Acute psychosis Polysubstance abuse Alcohol abuse Alopecia Insomnia GERD (gastroesophageal reflux disease) Marijuana smoker Asthma Surgical History Hx of appendectomy Family History Father Lung cancer Mother CVA (cerebral vascular accident) Diabetic acetonemia Brother Multiple sclerosis Sister Multiple sclerosis Maternal Aunt Skin cancer Social History (Updated 09/11/25 @ 10:32 by SCOTT Khan Household Members: Family Housing: House Housing Other:: Initially stated that he lives with mother & then reports he is homeless Are you a primary director career to a significant other at home: No Do you presently have visiting nurse or other home services: No Alcohol intake: current Alcohol intake frequency: a few times a week Comment: twice a month 3-4 beers, 3x a month 4 beers (02/2025) Patient Tobacco Use Status: Former Tobacco user Tobacco use type: Cigarette Years Smoked: quit 06/2021vape (10/2024) e-Cigarette/Vaping Use: Currently Using Second Hand Smoke Exposure: No Substance Use Type: Crack/Cocaine, Marijuana and Opiates service: No Current occupational status: employed Current occupation: [employer] Current occupational exposures/hazards: No Sexual orientation: Don't Know Cognitive needs: No Hearing needs: No Vision needs: No Review of Systems Const All systems reviewed & are unremarkable except as noted in HPI and below Physical Exam Vital Signs: BMI result Body Mass Index 22.5 Const General: cooperative, healthy appearing and no acute distress Orientation/consciousness: patient oriented x3 HEENT Head: Yes normocephalic and Yes atraumatic Eyes EOM: EOMs intact bilaterally Resp Effort & Inspection: normal respiratory effort and able to speak in complete sentences Cardio Jugular venous distension: no JVD Skin General skin exam: turgor normal Rashes: no rashes Neuro General: patient oriented x3 Extrem Other: Evaluation of Right Upper Extremity: The patient is alert, oriented, and in no acute distress Sensation intact to the tip of the finger Cap refill brisk Skin: He has got some maceration of the dorsal aspect of the finger from the middle phalanx distally. There is a transverse laceration just proximal to eponycheal fold I can see proximal end of the nailplate sitting superficial to the more proximal tissues General: No Erythema or evidence of infection. Visible mallet deformity of the middle finger Radiographs: 3 views of the right hand form 09/08/25 were reviewed by me today in clinic. They show a comminuted mildly displaced fracture involving the tuft of the middle finger distal phalanx & a mildly displaced mallet fracture of the middle finger distal phalanx dorsal base Psych Appearance: grossly normal Affect: normal affect Attitude: cooperative Assessment & Plan Assessment & Plan (1) Open fracture of distal phalanx of right middle finger with mallet deformity: Code(s): S62.632B - Displaced fracture of distal phalanx of right middle finger, initial encounter for open fracture; M20.011 - Mallet finger of right finger(s) Category: Medical (2) Closed fracture of tuft of distal phalanx of right middle finger: Code(s): S62.632A - Displaced fracture of distal phalanx of right middle finger, initial encounter for closed fracture Category: Medical (3) Generalized anxiety disorder: Comment: Living [place] once a week (phone) Nadine Dayton 07/2022 Code(s): F41.1 - Generalized anxiety disorder Category: Medical (4) Polysubstance abuse: Code(s): F19.10 - Other psychoactive substance abuse, uncomplicated Category: Medical (5) Vaping nicotine dependence, non-tobacco product: Code(s): F17.200 - Nicotine dependence, unspecified, uncomplicated Category: Medical (6) Asthma: Code(s): J45.909 - Unspecified asthma, uncomplicated Category: Medical Qualifiers: Asthma complication type: uncomplicated Asthma persistence: intermittent Asthma severity: mild Qualified Code(s): J45.20 - Mild intermittent asthma, uncomplicated Plan Assessment & Plan: 1. Right middle finger distal phalanx tuft fracture, comminuted & minimally displaced 2. Right middle finger open distal phalanx dorsal base mallet fracture, comminuted & displaced From a crush injury, DOI: 09/08/25, involving a [employer] trailer hitch This appears to be a work-related injury, though the job was reportedly at a [employer] place where he was being pain under the table. I educated him about this condition I discussed operative and non-operative treatment options and recommend surgery The patient would like to proceed with surgery I explained the signs and symptoms of infection, if the patient develops any new or worsening erythema, drainage, pain, or warmth they should contact the clinic or attend the ED. He should continue to take his Abx as instructed. 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 The risks and benefits of operative treatment were discussed with the patient and the patient wishes to proceed with surgery. These risks include, but are not limited to risk of damage to blood vessels, nerves, tendons, infection, recurrence, incomplete relief of preoperative symptoms, persistent pain, possible need for further surgery and the risks associated with regional blocks and anesthesia. The plan is to take the patient to the operating room sometime on 09/13/25 for the following procedures: 1. Right middle finger I&D of open fracture, under local 2. Right middle finger removal of nailplate & nailbed repair, under local 3. Right middle finger CRPP of distal phalanx mallet fracture, under local With plans to take him to the operating room in 2 days. All of the preoperative paperwork including the consent was reviewed today. All the patient's questions were answered. The patient understands that they will be contacted by our supervising floorperson soon to schedule this procedure He denies Diabetes, blood thinners, heart, lung, kidney issues He reports having anxiety problems and is unsure about having surgery under local He has asthma & a Hx of polysubstance abuse Scribed for Janet Sanchez MD by Con Marcelo, lpn medical assistant, on 09/11/25 at 10:45 AM, EST. Coding Level of Care Code New Pt Level 4 (44389) Diagnoses Open fracture of distal phalanx of right middle finger with mallet deformity S62.632B; M20.011 Closed fracture of tuft of distal phalanx of right middle finger S62.632A Generalized anxiety disorder F41.1 Polysubstance abuse F19.10 Vaping nicotine dependence, non-tobacco product F17.200 Mild intermittent asthma without complication J45.20 Asthma complication type: uncomplicated Asthma persistence: intermittent Asthma severity: mild
[2025-09-11 10:27] VITALS: BMI 22.5
--- OUTSIDE RECORDS SUMMARY | 2025-09-11 11:23 | XMS_ITS | Clinical Summary ---
Author Organization [facility] Address [address] [address] Phone Care Team Providers Care Biological Technical Officer Name Role Phone Irasema Nugent MD Primary Care Provider [phone] Medications perphenazine (TRILAFON) 4 MG tablet TAKE [...] topic Medical Devices Not on file Insurance PCT International CAREPLUS TOGETHER PCT International CAREToushay - It's what's in store TOGETHER PCT International CAREPLUS TOGETHER NovelHEALTH CAREPLUS TOGETHER HEALTH CAREPLUS TOGETHER NovelHEALTH CAREPLUS TOGETHER HEALTH CAREPLUS TOGETHER HEALTH CAREPLUS TOGETHER [place] C[employer] TOGETHER Care Teams Biological Technical Officer Relationship Specialty Start Date End Date Raffi, Irasema Owen MD [address] [place] [address] PCP - General Internal Medicine 06/02/17 Additional Source Comments The information contained in this document represents components of the legal health record. It is not the complete legal health record.[facility]
== END 2025-09-11 11:49 | disposition home or self-care (01) ==
LOC: HO.HOS 10:05
PROVIDERS: PCP Internal Medicine; Visit Provider Orthopaedic Surgery
DX: S62.632B Displaced fracture of distal phalanx of right middle finger, initial encounter for open fracture (principal); M20.011 Mallet finger of right finger(s); S62.632A Displaced fracture of distal phalanx of right middle finger, initial encounter for closed fracture; F41.1 Generalized anxiety disorder; F19.10 Other psychoactive substance abuse, uncomplicated; F17.200 Nicotine dependence, unspecified, uncomplicated; J45.20 Mild intermittent asthma, uncomplicated
CPT/HCPCS: 99204

== ENCOUNTER → 2025-09-11 10:04 | Outpatient (BNVA) | payer OTHER, SELFPAY | PROVIDERS: PCP Internal Medicine; Visit Provider Orthopaedic Surgery | DX: S62.632B Displaced fracture of distal phalanx of right middle finger, initial encounter for open fracture (principal); S62.632A Displaced fracture of distal phalanx of right middle finger, initial encounter for closed fracture; F41.1 Generalized anxiety disorder; F19.10 Other psychoactive substance abuse, uncomplicated; F17.290 Nicotine dependence, other tobacco product, uncomplicated; J45.20 Mild intermittent asthma, uncomplicated; W23.0XXA Caught, crushed, jammed, or pinched between moving objects, initial encounter; Y99.0 Civilian activity done for income or pay; Y92.89 Other specified places as the place of occurrence of the external cause | CPT/HCPCS: 99202 ==

== ENCOUNTER → 2025-09-13 10:12 | Day surgery (SDC) | payer OTHER, SELFPAY ==
--- NOTE | 2025-09-13 10:35 | P.OP_ITS ---
Operative Note Operative Note Date of Service: 09/13/25 Narrative: Please note: Patient canceled this procedure on 09/13/2025 because he said he was too anxious to have this done under local. We have rescheduled this for a general anesthesia procedure for 09/14/2025. It does appear that he used cocaine on Wednesday. We strongly advised him against use of recreational drugs before the surgery and let him know that he will be tested for recreational drugs before surgery tomorrow. Operative Note Preop diagnosis: 1. Right middle finger comminuted tuft fracture 2. Right middle finger open fracture of the dorsal base of the distal phalanx 3. Right middle finger nail bed injury Postop diagnosis: same Procedure: 1. I&D of right open distal phalanx base fracture 2. Right middle finger distal phalanx base fracture open reduction internal fixation 3. Right middle finger [ ] Surgeon: Janet Sanchez MD Registered Nurse Nursery: Bal [facility] Anesthesia: digital block using 1% lidocaine with epinephrine Findings: [ ] EBL: Less than 5 mL Tourniquet time: None Specimens: None Complications: None Disposition: Brought to recovery room in stable condition Plan: Follow-up for 7-10 days for wound check and suture removal and to check pathology Indications: The patient is 45 years old, with a crush injury to the right middle fingertip resulting in an open fracture of the dorsal base of the distal phalanx, a proximal nail bed injury with displacement of the proximal nail plate as well, and a comminuted fracture of the tuft of the middle phalanx. . The risks and benefits of operative treatment including but not limited to risk of damage to blood vessels, nerves, tendons, infection, persistent pain, persistent symptoms, recurrence or possible need for additional surgery were discussed with the patient and the patient wishes to proceed with surgery. Procedure: Once consent was obtained a digital block was performed in the preop area using a combination of 1% lidocaine with epinephrine. The patient was then brought back to the operating suite and placed on the operative table in supine position. The [ ] upper extremity was prepped and draped in a standard surgical fashion. Once assured that we had a good block, I performed an I&D of the open fracture of the right middle finger distal phalanx dorsal base fracture. Nonviable tissue was excised using tenotomy and iris scissors and a small rongeur. Once satisfied with [ ] the wound was copiously irrigated with normal saline and hemostasis was obtained with a brief period of local pressure. The skin edges were reapproximated with some 5.0 nylon suture material and a sterile dressing was applied. The patient appears to have tolerated the procedure well and with no complications. All digits were well vascularized at the conclusion of the case.
--- NOTE | 2025-09-13 10:35 | MHC.SHP ---
Pre-Procedural Eval Section A - 24 Hr Update-Section A only Date of Service: 09/13/25 The patient is an INPATIENT: No Changes since office visit: No Cold of Flu in the past 2 weeks, No New Medical Problems, No Changes in Medication and No Patient answered all questions The patient has been examined within 24 hours of the surgical procedure. The History & Physical has been completed within 30 days and I have reviewed it.: Yes Section B - Complete if H&P > 30 days Chief Complaint: Displaced fracture of distal phalanx of right midd Allergies: Allergies Allergy/AdvReac Type Severity Reaction Status Date / Time No Known Allergies Allergy Verified 09/11/25 10:31 Plan Diagnosis/Plan: Change I have reviewed the history and physical and performed a pertinent physical examination on my patient. No changes have occurred unless specified. The patient stated that he was too anxious to proceed with surgery under local anesthesia today. He has been rescheduled for tomorrow under general anesthesia. He was also for warned that if he tested positive for recreational drugs like cocaine he would be canceled. Time Spent With Patient Time: Total time managing care of this patient today ____ minutes.
[2025-09-13 11:35] VITALS: BP 120/83; PULSE 91; RESP 20; TEMP 36.6; O2SAT 98; BMI 23.8
--- NOTE | 2025-09-13 12:00 | PC.NURSE ---
Per Dr. Sanchez canceled for today, would like to have anesthesia, rescheduled fro tomorrow
--- NOTE | 2025-09-13 12:01 | PC.NURSE ---
Preop instructions given by Shawna HANNA, arrival at 1230
== END ==
PROVIDERS: PCP Internal Medicine; Visit Provider Orthopaedic Surgery
DX: S62.622A Displaced fracture of middle phalanx of right middle finger, initial encounter for closed fracture (principal); Z53.29 Procedure and treatment not carried out because of patient's decision for other reasons; R45.0 Nervousness
CPT/HCPCS: J0165; J2003; J2004; J2795

== ENCOUNTER 2025-09-14 12:24 | Day surgery (SDC) | payer OTHER, SELFPAY ==
[2025-09-13 15:39] VITALS: BMI 22.5
[2025-09-14] VITALS (7 sets, daily range): BP systolic 95–144; BP diastolic 64–99; PULSE 79–100; RESP 14–18; TEMP 36.2–36.9; O2SAT 96–99; BMI 22.9
--- NOTE | ~2025-09-14 | FL_ITS ---
EXAMINATION: FLUOROSCOPY GUIDANCE FOR NEEDLE PLACEMENT CLINICAL INFORMATION: middle finger crpp, right COMPARISON: Previous x-ray September 08, 2025 TECHNIQUE: Intraoperative fluoroscopic guidance provided for ORIF of right third finger distal tuft fracture. FINDINGS: 3 submitted fluoroscopic images. First image demonstrates instrument over the distal tuft of the third finger. Subsequent AP and lateral images demonstrate a K wire or pin in the distal and middle phalanx of the right third finger transfixing the fracture and DIP joint. Fractures of the distal tuft of the third finger and dorsal distal phalanx at the DIP joint better seen by x-ray. FLUOROSCOPY TIME: 28 seconds DOSE AREA PRODUCT: 0.03 Gy-cm2 FL/FL guidance in OR IMPRESSION: Fluoroscopy guidance for ORIF of right third finger fractures. Electronically signed by: Mar Rodriguez MD 09/14/2025 04:30 PM DAMIEN BHAGAT
[2025-09-14 12:49] LABS: Cannabinoid Screen Urine Not Detected (Not Detect)
[2025-09-14] MEDS: Lactated Ringers 1,000 ML 100 ML IVCONT (13:08)
--- NOTE | 2025-09-14 13:50 | MHC.SHP ---
Pre-Procedural Eval Section A - 24 Hr Update-Section A only Date of Service: 09/14/25 The patient is an INPATIENT: No Changes since office visit: No Cold of Flu in the past 2 weeks, No New Medical Problems, No Changes in Medication and No Patient answered all questions The patient has been examined within 24 hours of the surgical procedure. The History & Physical has been completed within 30 days and I have reviewed it.: Yes Section B - Complete if H&P > 30 days Chief Complaint: Displaced fracture of middle phalanx of right midd Allergies: Allergies Allergy/AdvReac Type Severity Reaction Status Date / Time No Known Allergies Allergy Verified 09/11/25 10:31 Plan I have reviewed the history and physical and performed a pertinent physical examination on my patient. No changes have occurred unless specified. Time Spent With Patient Time: Total time managing care of this patient today ____ minutes.
--- NOTE | 2025-09-14 13:51 | W.PM.OPN ---
Operative Note Operative Note Date of Service: 09/14/25 Narrative: Please note: Patient cancelled this procedure on 09/13/2025 because he said he was too anxious to have this done under local. We have rescheduled this for a general anesthesia procedure for 09/14/2025. It does appear that he used cocaine on Wednesday. We strongly advised him against use of recreational drugs before the surgery and let him know that he will be tested for recreational drugs before surgery. A Toxins screen was negative today. Operative Note Preop diagnosis: 1. Right middle finger comminuted tuft fracture 2. Right middle finger open fracture of the dorsal base of the distal phalanx 3. Right middle finger nail bed injury Postop diagnosis: same Procedure: 1. I&D of right open distal phalanx fracture 2. Right middle finger distal phalanx base and talked fractures open reduction internal fixation 3. Right middle finger repair Of nail bed Surgeon: Janet Sanchez MD Acute Care Certified Nursing Assistant: none Anesthesia: general Findings: transverse laceration of the nail bed, some of which is more of a delamination. The open wound in the nail bed extends down to the distal comminuted tuft fracture. No open wound extended to the more proximally positioned dorsal base fracture of the distal phalanx EBL: Less than 5 mL Tourniquet time: 31 minutes implants: 1 X 0.045 K-wire Specimens: None Complications: None Disposition: Brought to recovery room in stable condition Plan: Follow-up for 7-10 days for wound check and placement in a short-arm finger spica cast. continue antibiotics until they are finished anticipate suture removal at 3 weeks anticipate K-wire removal at between 5 and 6 weeks Indications: The patient is 45 years old, with a crush injury to the right middle fingertip resulting in an open fracture of the distal phalanx, a proximal nail bed injury with displacement of the proximal nail plate as well, and a comminuted fracture of the tuft of the middle phalanx. . The risks and benefits of operative treatment including but not limited to risk of damage to blood vessels, nerves, tendons, infection, persistent pain, persistent symptoms, recurrence or possible need for additional surgery were discussed with the patient and the patient wishes to proceed with surgery. Procedure: Once consent was obtained the patient was then brought back to the operating suite and placed on the operative table in supine position. perioperative antibiotics were administered and general anesthesia performed by the anesthesia team. A tourniquet was applied to the patient's right upper extremity and the limb was prepped and draped in a standard surgical fashion. The limb was elevated and exsanguinated and the tourniquet inflated to 250 mm of mercury for a total tourniquet time of 31 minutes. The nail plate was carefully removed using a Gallion elevator to separate it from the underlying sterile and germinal matrices. There was a laceration of the sterile matrix which was transversely oriented but also had an element of delamination going from shallow proximally extending obliquely to full-thickness distally. This laceration communicated with the distal comminuted fracture of the tuft of the distal phalanx. I performed an I&D of the open fracture of the right middle finger distal phalanx dorsal base fracture. Nonviable tissue was excised using tenotomy and iris scissors , a curette on the bone, and a small rongeur. the wound was then copiously irrigated with normal saline. A 10 mL syringe and an Angiocath were used to properly irrigate the fracture site. I then turned my attention to the fractures. First the most distal comminuted fracture of the tuft was reduced. I then placed a 0.045 K-wire retrograde through the tip of the finger and advanced it along the shaft of the distal phalanx to the base of the distal phalanx. I then reduced the fracture of the dorsal base of the distal phalanx, and aligned the D IP joint in neutral extension. The K-wire was then advanced across the D IP joint and into the middle phalanx. Once satisfied with our fracture reductions and placement of the K-wire the pin was bent cut short and had a pin cap applied. I then turned my attention to the nail bed. The nail plate had been removed and was cleaned on the back table and placed in some Betadine. The nail bed injury was again irrigated with normal saline. I then reapproximated the proximal and distal edges using some 5 0 chromic suture material. I then irrigated the Betadine off of the nail plate and placed the nail plate beneath the proximal eponychial fold and secured it there using some 4-0 Prolene suture. The nail plate was also secured In place more distally using some 4-0 Prolene suture. Once satisfied with a debridement the wound was copiously irrigated with normal saline. the tourniquet was deflatedand hemostasis was obtained with a brief period of local pressure. a digital block was performed using some 0.5% plain ropivacaine. A sterile dressing and a volar splint extending from the fingertips of the middle ring and small fingers to the volar forearm was then placed. The patient appears to have tolerated the procedure well and with no complications. All digits were well vascularized at the conclusion of the case.
--- NOTE | 2025-09-14 14:20 | HO.ANESPROP2 ---
[facility] Active Problems Active Problems: All Active Problems (Updated 09/11/25 @ 10:49 by Con Marcelo) Open fracture of distal phalanx of right middle finger with mallet deformity (Acute) Closed fracture of tuft of distal phalanx of right middle finger (Acute) Vaping nicotine dependence, non-tobacco product (Acute) Hypercalcemia (Acute) Onychomycosis (Acute) Psychotic disorder due to psychoactive substance (Acute) Sexually transmitted disease exposure (Acute) Polysubstance abuse (Acute) Dislocation of interphalangeal joint of left little finger (Acute) Tinea pedis (Acute) Generalized anxiety disorder (Acute) Annual physical exam (Acute) Impaired glucose tolerance (Acute) Anemia (Acute) Insomnia (Acute) GERD (gastroesophageal reflux disease) (Acute) Asthma (Acute) Past Medical History Medical History Overweight (BMI 25.0-29.9) Gonorrhea Fracture of finger, middle phalanx, left, closed Insect bites Tinea pedis Anxiety Brea Acute psychosis Polysubstance abuse Alcohol abuse Alopecia Insomnia GERD (gastroesophageal reflux disease) Marijuana smoker Asthma Family History Family History Father Lung cancer Mother CVA (cerebral vascular accident) Diabetic acetonemia Brother Multiple sclerosis Sister Multiple sclerosis Maternal Aunt Skin cancer Family history of problems with anesthesia: No Surgical History Surgical History Hx of appendectomy History of Problems with Anesthesia: No Social History Social History (Updated 09/11/25 @ 10:32 by TIGIST Khan) Household Members: Family Housing: House Housing Other:: Initially stated that he lives with mother & then reports he is homeless Are you a primary youth care specialist to a significant other at home: No Do you presently have visiting nurse or other home services: No Alcohol intake: current Alcohol intake frequency: a few times a week Comment: twice a month 3-4 beers, 3x a month 4 beers (02/2025) Patient Tobacco Use Status: Former Tobacco user Tobacco use type: Smokeless Tobacco Years Smoked: quit 06/2021vape (10/2024) e-Cigarette/Vaping Use: Currently Using Second Hand Smoke Exposure: No Substance Use Type: Crack/Cocaine, Marijuana and Opiates Have you been hit, kicked, punched, or otherwise hurt by someone within the past year? If so, by whom?: No Advance Directives: No Advance Directives Information Provided: Yes service: No Current occupational status: employed Current occupation: [employer] /rt hand Current occupational exposures/hazards: No Sexual orientation: Don't Know Cognitive needs: No Hearing needs: No Vision needs: No Meds Allergies Allergy/AdvReac Type Severity Reaction Status Date / Time No Known Allergies Allergy Verified 09/11/25 10:31 Active Medications: Current Medications Albuterol Sulfate (Albuterol Sulfate (0.083%) 2.5 Mg/3 Ml Vial.Neb) 2.5 mg INHALE ONCE PRN PRN Reason: Shortness of Breath/Wheezing Lactated Ringer's (Lr) 1,000 mls @ 100 mls/hr IVCONT .Q10H АННА Last Admin: 09/14/25 13:08 Dose: 100 mls/hr Cefazolin Sodium/Dextrose (Ancef) 2 gm in 50 mls @ 100 mls/hr IV PREOP ONE Stop: 09/14/25 14:44 Exam Height,Weight and Vital Signs: Height 5 ft 5 in Weight 62.3 kg Last Vital Signs Temp 98.4 F 09/14/25 12:28 Pulse 100 09/14/25 12:28 Resp 18 09/14/25 12:28 BP 132/99 H 09/14/25 12:28 Pulse Ox 98 09/14/25 12:28 O2 Del Method Room Air 09/14/25 12:28 Pertinent Lab Results Pertinent Lab Results: Laboratory Tests 09/14/25 12:26 Urine Opiates Screen Not Detected Ur Buprenorphine Scrn Not Detected Ur Oxycodone Screen Not Detected Urine Methadone Screen Not Detected Urine Fentanyl Screen Not Detected Ur Barbiturates Screen Not Detected Ur Phencyclidine Scrn Not Detected Ur Amphetamines Screen Not Detected U Benzodiazepines Scrn Not Detected Urine Cocaine Screen Not Detected U Marijuana (THC) Screen Not Detected Airway Mallampati Class: II TM Dist: >3cm Neck ROM: Full Heart: rrr Lungs: cta Assessment and Plan Assessment Anesthesia Assessment: Anesthesia Plan Discussed and Chart Reviewed Final Anesthetic Review Family History of Problems with Anesthesia: No History of Problems with Anesthesia: No NPO: Yes ASA Class: III Final Preanesthetic Review: No Changes in Pt Med Stat, Meds/Allgs Chart Reviewed and Consent Obtained/Reviewed Patient Risk: Intermediate Procedure Risk: Low Anesthetic Plan Anesthetic Plan: GA Disposition: Standard PACU
== END 2025-09-14 17:15 | disposition home or self-care (01) ==
PROVIDERS: Nurse Practitioner; PCP Internal Medicine; Visit Provider Orthopaedic Surgery
PROC: (CPT 26765; principal; 2025-09-14 14:00)
DX: S62.622A Displaced fracture of middle phalanx of right middle finger, initial encounter for closed fracture (principal); M20.011 Mallet finger of right finger(s); M79.644 Pain in right finger(s); R20.0 Anesthesia of skin; W23.0XXA Caught, crushed, jammed, or pinched between moving objects, initial encounter; Y93.89 Activity, other specified; Y92.89 Other specified places as the place of occurrence of the external cause; Y99.9 Unspecified external cause status; J45.20 Mild intermittent asthma, uncomplicated; F41.1 Generalized anxiety disorder; F23 Brief psychotic disorder; K21.9 Gastro-esophageal reflux disease without esophagitis; E66.3 Overweight; Z68.22 Body mass index [BMI] 22.0-22.9, adult; L65.9 Nonscarring hair loss, unspecified; F19.10 Other psychoactive substance abuse, uncomplicated; F10.10 Alcohol abuse, uncomplicated; F17.200 Nicotine dependence, unspecified, uncomplicated
CPT/HCPCS: 26765; 11012; 11750; 11760; 80307; J0131; J0690; J1100; J1171; J2003; J2250; J2405; J2704; J3010

== ENCOUNTER → 2025-09-14 12:24 | Outpatient (BNV) | payer OTHER, SELFPAY | PROVIDERS: PCP Internal Medicine; Visit Provider Orthopaedic Surgery | DX: S62.632B Displaced fracture of distal phalanx of right middle finger, initial encounter for open fracture (principal) | CPT/HCPCS: 11012; 11750; 11760; 26765 ==

== ENCOUNTER 2025-09-18 09:55 | Outpatient (AMB) | payer OTHER, SELFPAY ==
[2025-09-18 10:08] VITALS: BMI 22.8
--- NOTE | 2025-09-18 10:08 | A.OFFVIS_ITS ---
Vital Signs 09/18/25 10:08 Height 5 ft 5 in Weight 137 lb BMI 22.8 Intake Visit Reasons: PO RT MF I&D ORIF 09/13/25 AR Intake Note: Ifeanyi is a 45 year old right hand dominant male who presents today for a Post- Operative Visit status post Right Middle Finger I&D and ORIF, DOS: 09/13/[address] Sanchez. Patient's dressing and splint were removed. His splint was very flimsy, it appears it was exposed to water however patient stated it could have been sweat. He is very sensitive to touch. Patient continues taking his antibiotics. Allergies No Known Allergies Allergy (Verified 09/18/25 10:31) HPI HPI PO RT MF I&D ORIF 09/13/25 AR: Details: Ifeanyi is a 45 year old right hand dominant male who presents today for a Post- Operative Visit status post Right Middle Finger I&D and ORIF, DOS: 09/13/[address] Sanchez. Patient's dressing and splint were removed. His splint was very flimsy, it appears it was exposed to water however patient stated it could have been sweat. Patient states he did not get the splint wet. He is very sensitive to touch. Patient continues taking his antibiotics. No other acute complaints or concerns at this time [facility] Medical History Overweight (BMI 25.0-29.9) Gonorrhea Fracture of finger, middle phalanx, left, closed Insect bites Tinea pedis Anxiety Brea Acute psychosis Polysubstance abuse Alcohol abuse Alopecia Insomnia GERD (gastroesophageal reflux disease) Marijuana smoker Asthma Surgical History Hx of appendectomy Family History Father Lung cancer Mother CVA (cerebral vascular accident) Diabetic acetonemia Brother Multiple sclerosis Sister Multiple sclerosis Maternal Aunt Skin cancer Social History (Updated 09/11/25 @ 10:32 by TIGIST Khan) Household Members: Family Housing: House Housing Other:: Initially stated that he lives with mother & then reports he is homeless Are you a primary acute care physical therapist to a significant other at home: No Do you presently have visiting nurse or other home services: No Alcohol intake: current Alcohol intake frequency: a few times a week Comment: twice a month 3-4 beers, 3x a month 4 beers (02/2025) Patient Tobacco Use Status: Former Tobacco user Tobacco use type: Smokeless Tobacco Years Smoked: quit 06/2021vape (10/2024) e-Cigarette/Vaping Use: Currently Using Second Hand Smoke Exposure: No Substance Use Type: Crack/Cocaine, Marijuana and Opiates service: No Current occupational status: employed Current occupation: [employer] /rt hand Current occupational exposures/hazards: No Sexual orientation: Don't Know Cognitive needs: No Hearing needs: No Vision needs: No Review of Systems Const All systems reviewed & are unremarkable except as noted in HPI and below Physical Exam Vital Signs: BMI result Body Mass Index 22.8 Const General: cooperative, healthy appearing and no acute distress Orientation/consciousness: patient oriented x3 HEENT Head: Yes normocephalic and Yes atraumatic Eyes EOM: EOMs intact bilaterally Resp Effort & Inspection: normal respiratory effort and able to speak in complete sentences Cardio Jugular venous distension: no JVD Skin General skin exam: turgor normal Rashes: no rashes Neuro General: patient oriented x3 Extrem Other: Evaluation of Right Upper Extremity: The patient is alert, oriented, and in no acute distress Sensation intact to the tip of the finger Cap refill brisk Skin: He has got some very mild maceration of the dorsal aspect of the finger from the middle phalanx distally. There is a transverse laceration just proximal to eponycheal fold . Sutures in place and in satisfactory clinical alignment General: No Erythema or evidence of infection. Visible mallet deformity of the middle finger Radiographs: 3 views of the right hand taken in the office today and independently reviewed by me. They show a comminuted fracture involving the tuft of the middle finger distal phalanx & a mildly displaced mallet fracture of the middle finger distal phalanx dorsal base status post CRPP with all orthopedic hardware in place and in satisfactory clinical alignment Psych Appearance: grossly normal Affect: normal affect Attitude: cooperative Office Procedures Casting/Splints 62192-Rtgnmhi Splint Application Procedure code (CPT) selection complete Assessment & Plan Assessment & Plan (1) Open fracture of distal phalanx of right middle finger with mallet deformity: Code(s): S62.632B - Displaced fracture of distal phalanx of right middle finger, initial encounter for open fracture; M20.011 - Mallet finger of right finger(s) Category: Medical Plan 1. Status post I and D and ORIF of right middle finger DOS 09/13/2025 Patient appears to be recovering fairly well postoperatively Patient is educated about the typical recovery course Antibiotics refilled today Patient is educated how important it is that he keeps the splint clean and dry at all times due to presence of pin and laceration Suture will remain in place for 1 more week Patient is placed into an ulnar gutter splint and educated on proper splint care and precautions Patient is educated on 2 lb weight limit Follow-up in 1 week for suture removal, anticipate cast placement at that time, sooner with any acute concerns Orders: Orders XR hand RT min 3V Today M79.641 - Pain in right hand Medications: Refilled amoxicillin-pot clavulanate 875-125 mg 1 tab PO BID 20 tabs 0RF 10 days Coding Level of Care Code Global (60673) Diagnoses Open fracture of distal phalanx of right middle finger with mallet deformity S62.632B; M20.011 CPT Codes Splint - CPT: 74347-Dzmiikt Splint Application ([id number])
== END 2025-09-18 12:52 | disposition home or self-care (01) ==
LOC: HO.HOS 09:56
PROVIDERS: PCP Internal Medicine
DX: S62.632B Displaced fracture of distal phalanx of right middle finger, initial encounter for open fracture (principal); M20.011 Mallet finger of right finger(s)
CPT/HCPCS: 29125; 99024

== ENCOUNTER 2025-09-18 09:55 | Outpatient (REF) | payer OTHER, SELFPAY ==
--- NOTE | ~2025-09-18 | XR_ITS ---
EXAMINATION: XR HAND, RIGHT CLINICAL INFORMATION: M79.641 - Pain in right hand COMPARISON: Previous x-ray September 08, 2025 and intraoperative fluoroscopy September 14, 2025 TECHNIQUE: PA, lateral, and oblique views of the right hand. FINDINGS: K wire or pin in the distal and middle phalanx of the right third finger transfixing the fracture of the distal distal tuft of the distal phalanx and across the DIP joint. Probable displaced fracture of the dorsal distal phalanx of the right third finger intra-articular with the DIP joint unchanged. No other fracture. Arthritis at the JAIL joints and trapezoid trapezium scaphoid joint. XR/XR hand RT min 3V IMPRESSION: ORIF of fracture of the distal phalanx of the right third finger. Electronically signed by: Mar Rodriguez MD 09/18/2025 10:42 AM DAMIEN
== END 2025-09-18 09:56 | disposition home or self-care (01) ==
LOC: HO.HOSX 09:55
PROVIDERS: PCP Internal Medicine
DX: S62.632B Displaced fracture of distal phalanx of right middle finger, initial encounter for open fracture (principal); M20.011 Mallet finger of right finger(s); X58.XXXA Exposure to other specified factors, initial encounter
CPT/HCPCS: 29125; 73130; 99212

== ENCOUNTER → 2025-09-18 10:27 | Outpatient (BNV) | payer OTHER, SELFPAY | PROVIDERS: PCP Internal Medicine; Visit Provider Radiology Diagnostic Radiology | DX: S62.632A Displaced fracture of distal phalanx of right middle finger, initial encounter for closed fracture (principal) | CPT/HCPCS: 73130 ==

== ENCOUNTER 2025-09-25 13:09 | Outpatient (REF) | payer OTHER, SELFPAY ==
--- NOTE | ~2025-09-25 | XR_ITS ---
EXAMINATION: XR HAND, RIGHT CLINICAL INFORMATION: M79.641 - Pain in right hand COMPARISON: September 18, 2025 TECHNIQUE: PA, lateral, and oblique views of the right hand. FINDINGS: K wire throughout the distal and middle phalanx of the third digit. Persistent bone fragments in the tip of the distal phalanx without gross callus formation. No subcutaneous emphysema. Metacarpals are intact. Carpal bones are intact with normal alignment. Distal radius and ulna are intact. XR/XR hand RT min 3V IMPRESSION: No gross healing comminuted fracture, tip distal phalanx third digit. No gross change. Electronically signed by: Presley Sandhu MD 09/25/2025 01:32 PM EST RP
== END 2025-09-25 13:10 | disposition home or self-care (01) ==
LOC: HO.HOSX 13:09
PROVIDERS: PCP Internal Medicine
DX: S62.632D Displaced fracture of distal phalanx of right middle finger, subsequent encounter for fracture with routine healing (principal); M20.011 Mallet finger of right finger(s); X58.XXXD Exposure to other specified factors, subsequent encounter
CPT/HCPCS: 73130

== ENCOUNTER 2025-09-25 13:09 | Outpatient (AMB) | payer OTHER, SELFPAY ==
[2025-09-25 13:32] VITALS: BMI 22.8
--- NOTE | 2025-09-25 13:32 | MHC.OFFVIS ---
Vital Signs 09/25/25 13:32 Height 5 ft 5 in Weight 137 lb BMI 22.8 Intake Visit Reasons: PO RT MF I&D ORIF 09/13/25 AR Intake Note: Ifeanyi is a 45 year old right hand dominant male who presents today for a Post-Operative Visit status post Right Middle Finger I&D, ORIF, and Nail Bed Repair, DOS: 09/13/[address] Sanchez. Patient continues to be sensitive around pin site. Dressing removed. Allergies No Known Allergies Allergy (Verified 09/25/25 13:40) HPI HPI PO RT MF I&D ORIF 09/13/25 AR: Details: Ifeanyi is a 45 year old right hand dominant male who presents today for a Post-Operative Visit status post Right Middle Finger I&D, ORIF, and Nail Bed Repair, DOS: 09/13/[address] Sanchez. Patient continues to be sensitive around pin site but does report that pain is improving.. Dressing removed. [facility] Medical History Overweight (BMI 25.0-29.9) Gonorrhea Fracture of finger, middle phalanx, left, closed Insect bites Tinea pedis Anxiety Brea Acute psychosis Polysubstance abuse Alcohol abuse Alopecia Insomnia GERD (gastroesophageal reflux disease) Marijuana smoker Asthma Surgical History Hx of appendectomy Family History Father Lung cancer Mother CVA (cerebral vascular accident) Diabetic acetonemia Brother Multiple sclerosis Sister Multiple sclerosis Maternal Aunt Skin cancer Social History (Updated 09/11/25 @ 10:32 by TIGIST Khan) Household Members: Family Housing: House Housing Other:: Initially stated that he lives with mother & then reports he is homeless Are you a primary technical healthcare consultant to a significant other at home: No Do you presently have visiting nurse or other home services: No Alcohol intake: current Alcohol intake frequency: a few times a week Comment: twice a month 3-4 beers, 3x a month 4 beers (02/2025) Patient Tobacco Use Status: Former Tobacco user Tobacco use type: Smokeless Tobacco Years Smoked: quit 06/2021vape (10/2024) e-Cigarette/Vaping Use: Currently Using Second Hand Smoke Exposure: No Substance Use Type: Crack/Cocaine, Marijuana and Opiates service: No Current occupational status: employed Current occupation: [employer] /rt hand Current occupational exposures/hazards: No Sexual orientation: Don't Know Cognitive needs: No Hearing needs: No Vision needs: No Physical Exam Vital Signs: BMI result Body Mass Index 22.8 Const General: cooperative, healthy appearing and no acute distress Orientation/consciousness: patient oriented x3 HEENT Head: Yes normocephalic and Yes atraumatic Eyes EOM: EOMs intact bilaterally Resp Effort & Inspection: normal respiratory effort and able to speak in complete sentences Cardio Jugular venous distension: no JVD Skin General skin exam: turgor normal Rashes: no rashes Neuro General: patient oriented x3 Extrem Other: Evaluation of Right Upper Extremity: The patient is alert, oriented, and in no acute distress Sensation intact to the tip of the finger Cap refill brisk Skin: He has no further maceration of the dorsal aspect of the finger from the middle phalanx distally. There is a transverse laceration just proximal to eponycheal fold . Sutures in place and in satisfactory clinical alignment General: No Erythema or evidence of infection. No further mallet deformity noted status post CRPP Radiographs: 3 views of the right hand taken in the office today and independently reviewed by me. They show a comminuted fracture involving the tuft of the middle finger distal phalanx & a mildly displaced mallet fracture of the middle finger distal phalanx dorsal base status post CRPP with all orthopedic hardware in place and in satisfactory clinical alignment Psych Appearance: grossly normal Affect: normal affect Attitude: cooperative Office Procedures Casting/Splints 95010-Lixw/Wrist Cast Application Procedure code (CPT) selection complete Assessment & Plan Assessment & Plan (1) Open fracture of distal phalanx of right middle finger with mallet deformity: Code(s): S62.632B - Displaced fracture of distal phalanx of right middle finger, initial encounter for open fracture; M20.011 - Mallet finger of right finger(s) Category: Medical Plan 1. Status post I and D and ORIF of right middle finger DOS 09/13/2025 Patient appears to be recovering fairly well postoperatively Patient is educated about the typical recovery course Finish current course of antibiotics Patient is educated how important it is that he keeps the cast clean and dry at all times due to presence of pin and laceration Suture will remain in place for 1 more week Patient is placed into an ulnar gutter cast and educated on proper cast care and precautions Patient is educated on 2 lb weight limit Follow-up in 1 week for suture removal, anticipate cast placement at that time, sooner with any acute concerns Orders: Orders XR hand RT min 3V Today M79.641 - Pain in right hand Coding Level of Care Code Global (47539) Diagnoses Open fracture of distal phalanx of right middle finger with mallet deformity S62.632B; M20.011 CPT Codes Casting - CPT: 40548-Immk/Wrist Cast Application ([id number])
--- OUTSIDE RECORDS SUMMARY | 2025-09-25 17:11 | XMS_ITS | Clinical Summary ---
Author Organization [facility] Address [address] [address] Phone Care Team Providers Care Dot Etcher Name Role Phone Irasema Nugent MD Primary Care Provider [phone] Medications perphenazine (TRILAFON) 4 MG tablet TAKE [...] topic Medical Devices Not on file Insurance [email or web address] C[employer]PLUS TOGETHER [email or web address] TOGETHER [email or web address] TOGETHER [employer] CAREPLUS TOGETHER HEALTH CAREPLUS TOGETHER [employer] CAREPLUS TOGETHER HEALTH CAREPLUS TOGETHER HEALTH CAREPLUS TOGETHER [place] [employer] Care Teams Dot Etcher Relationship Specialty Start Date End Date Raffi, Irasema Owen MD [address] [place] [address] PCP - General Internal Medicine 06/02/17 Additional Source Comments The information contained in this document represents components of the legal health record. It is not the complete legal health record.[facility]
== END 2025-09-25 14:34 | disposition home or self-care (01) ==
LOC: HO.HOS 13:10
PROVIDERS: PCP Internal Medicine
DX: S62.632B Displaced fracture of distal phalanx of right middle finger, initial encounter for open fracture (principal); M20.011 Mallet finger of right finger(s)
CPT/HCPCS: 29085; 99024

== ENCOUNTER → 2025-09-25 13:22 | Outpatient (BNV) | payer OTHER, SELFPAY | PROVIDERS: PCP Internal Medicine; Visit Provider Radiology Diagnostic Radiology | DX: M79.641 Pain in right hand (principal) | CPT/HCPCS: 73130 ==

== ENCOUNTER 2025-10-01 08:29 | Outpatient (REF) | payer OTHER, SELFPAY ==
--- NOTE | ~2025-10-01 | XR_ITS ---
EXAMINATION: XR HAND 3 OR MORE VIEWS RIGHT HISTORY: M79.641 - Pain in right hand COMPARISON: Comparison is made with the prior examination dated 09/25/2025. FINDINGS: Four views of the right hand are submitted. Osseous mineralization is normal. Again seen is internal fixation of a comminuted fracture of the distal phalanx of the middle finger with a single K wire. The fracture lines remain visible. The joint spaces are preserved. The soft tissues are unremarkable. XR/XR hand RT min 3V IMPRESSION: Internal fixation of a comminuted fracture of the distal phalanx of the middle finger without change. Electronically signed by: Cristofer Hatch MD 10/01/2025 01:38 PM EST
--- OUTSIDE RECORDS SUMMARY | 2025-10-01 08:42 | XMS_ITS | Clinical Summary ---
Author Organization [facility] Address [address] [address] Phone Care Team Providers Care Assistant To The President Name Role Phone Irasema Nugent MD Primary Care Provider [phone] Medications perphenazine (TRILAFON) 4 MG tablet TAKE [...] topic Medical Devices Not on file Insurance [employer] C[employer]US TOGETHER [employer] TOGETHER [employer] TOGETHER [employer] TOGETHER HEALTH CARE[employer]US TOGETHER [facility] [employer]ARE[employer]US TOGETHER HEALTH CARE[employer]US TOGETHER HEALTH [employer]ARE[employer]US TOGETHER [place] [employer] Care Teams Assistant To The President Relationship Specialty Start Date End Date Raffi, Irasema Owen MD [address] [place] [address] PCP - General Internal Medicine 06/02/17 Additional Source Comments The information contained in this document represents components of the legal health record. It is not the complete legal health record.[facility]
== END 2025-10-01 08:30 | disposition home or self-care (01) ==
LOC: HO.HOSX 08:29
DX: S62.632B Displaced fracture of distal phalanx of right middle finger, initial encounter for open fracture (principal); M20.011 Mallet finger of right finger(s); X58.XXXA Exposure to other specified factors, initial encounter; Y93.9 Activity, unspecified; Y92.9 Unspecified place or not applicable; Z98.890 Other specified postprocedural states
CPT/HCPCS: 73130; 99212

== ENCOUNTER 2025-10-01 11:08 | Outpatient (AMB) | payer OTHER, SELFPAY ==
[2025-10-01 11:58] VITALS: BMI 22.8
--- NOTE | 2025-10-01 11:58 | MHC.OFFVIS ---
Vital Signs 10/01/25 11:58 Height 5 ft 5 in Weight 137 lb BMI 22.8 Intake Visit Reasons: PO RT MF I&D ORIF 09/13/25 AR/Suture removal Intake Note: Ifeanyi is a 45 year old right hand dominant male who presents today Post-Operatively for a suture removal status post Right Middle Finger I&D, ORIF, and Nail Bed Repair, DOS: 09/13/[address] Sanchez. He was last seen on 09/25/25 where he was placed in an ulnar gutter cast with a 2 lb weight limit. Today, patient reports he does not want to go back in a cast. Antibiotics completed as prescribed. Allergies No Known Allergies Allergy (Verified 10/02/25 08:41) HPI HPI PO RT MF I&D ORIF 09/13/25 AR/Suture removal: Details: Ifeanyi is a 45 year old right hand dominant male who presents today Post-Operatively for a suture removal status post Right Middle Finger I&D, ORIF, and Nail Bed Repair, DOS: 09/13/[address] Sanchez. He was last seen on 09/25/25 where he was placed in an ulnar gutter cast with a 2 lb weight limit. Today, patient reports he does not want to go back in a cast. Antibiotics completed as prescribed. Patient is incredibly anxious about all procedures, and states that he is very nervous about suture and pin removal. [facility] Medical History Overweight (BMI 25.0-29.9) Gonorrhea Fracture of finger, middle phalanx, left, closed Insect bites Tinea pedis Anxiety Brea Acute psychosis Polysubstance abuse Alcohol abuse Alopecia Insomnia GERD (gastroesophageal reflux disease) Marijuana smoker Asthma Surgical History Hx of appendectomy Family History Father Lung cancer Mother CVA (cerebral vascular accident) Diabetic acetonemia Brother Multiple sclerosis Sister Multiple sclerosis Maternal Aunt Skin cancer Social History Household Members: Family Housing: House Housing Other:: Initially stated that he lives with mother & then reports he is homeless Are you a primary healthcare project manager to a significant other at home: No Do you presently have visiting nurse or other home services: No Alcohol intake: current Alcohol intake frequency: a few times a week Comment: twice a month 3-4 beers, 3x a month 4 beers (02/2025) Patient Tobacco Use Status: Former Tobacco user Tobacco use type: Smokeless Tobacco Years Smoked: quit 06/2021vape (10/2024) e-Cigarette/Vaping Use: Currently Using Second Hand Smoke Exposure: No Substance Use Type: Crack/Cocaine, Marijuana and Opiates service: No Current occupational status: employed Current occupation: [employer] /rt hand Current occupational exposures/hazards: No Sexual orientation: Don't Know Cognitive needs: No Hearing needs: No Vision needs: No Review of Systems Const All systems reviewed & are unremarkable except as noted in HPI and below Physical Exam Vital Signs: BMI result Body Mass Index 22.8 Const General: cooperative, healthy appearing and no acute distress Orientation/consciousness: patient oriented x3 HEENT Head: Yes normocephalic and Yes atraumatic Eyes EOM: EOMs intact bilaterally Resp Effort & Inspection: normal respiratory effort and able to speak in complete sentences Cardio Jugular venous distension: no JVD Skin General skin exam: turgor normal Rashes: no rashes Neuro General: patient oriented x3 Extrem Other: Evaluation of Right Upper Extremity: The patient is alert, oriented, and in no acute distress Sensation intact to the tip of the finger Cap refill brisk Skin: He has no further maceration of the dorsal aspect of the finger from the middle phalanx distally. There is a transverse laceration just proximal to eponycheal fold . Sutures in place and in satisfactory clinical alignment Pin site clean, dry, intact General: No Erythema or evidence of infection. No further mallet deformity noted status post CRPP Psych Appearance: grossly normal Affect: normal affect Attitude: cooperative Results Reviewed Results Reviewed: X-rays obtained in the office today and independently reviewed by me, Bal Taylor PA-C, demonstrate status post CRPP of open fracture and mallet deformity of right middle finger distal phalanx with all orthopedic hardware in place and in satisfactory clinical alignment. Assessment & Plan Assessment & Plan (1) Open fracture of distal phalanx of right middle finger with mallet deformity: Code(s): S62.632B - Displaced fracture of distal phalanx of right middle finger, initial encounter for open fracture; M20.011 - Mallet finger of right finger(s) Category: Medical Plan 1. Status post I and D and ORIF of right middle finger DOS 09/13/2025 Case was discussed with Dr. Sanchez, who was available to see the patient with me in the office today, and a collaborative treatment plan was formed: Patient appears to be recovering fairly well postoperatively Patient is educated about the typical recovery course Finish current course of antibiotics Patient is educated how important it is that he keeps the cast clean and dry at all times due to presence of pin and laceration All but 1 sutures removed today, but when attempting to remove the final suture in the nail, the patient grew incredibly anxious and refused further attempts Per Dr. Sanchez recommendation, the knot was cut out of the suture to allow the suture to come out on its own Patient will follow-up in 1 week for suture removal if suture remains Patient is placed into an ulnar gutter splint and educated on proper cast care and precautions Patient is educated on 2 lb weight limit Follow-up in 1 week for suture removal, anticipate placement back into a splint at that time, sooner with any acute concerns Orders: Orders XR hand RT min 3V 10/01/25 M79.641 - Pain in right hand Coding Level of Care Code Global (39683) Diagnoses Open fracture of distal phalanx of right middle finger with mallet deformity S62.632B; M20.011
== END 2025-10-01 12:49 | disposition home or self-care (01) ==
LOC: HO.HOS 11:09
PROVIDERS: PCP Internal Medicine
DX: S62.632B Displaced fracture of distal phalanx of right middle finger, initial encounter for open fracture (principal); M20.011 Mallet finger of right finger(s)
CPT/HCPCS: 99024

== ENCOUNTER → 2025-10-01 11:11 | Outpatient (BNV) | payer OTHER, SELFPAY | PROVIDERS: Visit Provider Radiology Diagnostic Radiology | DX: M79.641 Pain in right hand (principal) | CPT/HCPCS: 73130 ==

== ENCOUNTER 2025-10-02 08:36 | Outpatient (AMB) | payer OTHER, SELFPAY ==
[2025-10-02 08:41] VITALS: BP 110/72; PULSE 91; O2SAT 99; BMI 23.3
--- NOTE | 2025-10-02 08:41 | A.OFFPC_ITS ---
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: No Accompanied by: Self / Same As Patient Allergies No Known Allergies Allergy (Verified 10/02/25 08:41) Medication List - Last Reconciled 10/02/25 by Irasema Nugent MD albuterol sulfate 90 mcg/actuation (Ventolin HFA) 2 puffs PO Q4-6H PRN Tobacco use date assessed: 10/02/25 Dental Screening Dental Screen Date: 10/02/25 Did you have a dental visit in the last 12 months?: No Did you have a dental problem in the last 6 months where you did not have access to dental care?: No Was dental information given to patient?: No HPI anxiety HPI Details Patient is very anxious and was advised by ortho to get anxiety. HPI Comments History of Present Illness Details History of Present Illness The patient is a 45-year-old male presenting for a follow-up visit for management of multiple medical issues. He has a history of asthma, insomnia, generalized anxiety disorder, and polysubstance abuse. On September 08, the patient sustained a crush injury to his right middle finger and was seen in the emergency room. He was diagnosed with a comminuted fracture of the distal phalanx and underwent an incision and drainage, open reduction and internal fixation, and nail bed repair on September 13, 2025. A subsequent x-ray showed the internal fixation without change, and he continues to follow up with orthopedics. In June 2025, he had an ER visit for chest pain and was diagnosed with bronchitis, for which he was treated with a Z-Jose Alberto and prednisone. His blood work from June showed mild anemia, good electrolytes and renal function, and a blood sugar of 107. His cholesterol was last tested in April and was normal. For his asthma, the patient uses an albuterol inhaler as needed and reports using it frequently lately. He continues to vape. For his generalized anxiety disorder, he is seeing a new therapist and his condition is stable. Health Maintenance - The patient received a tetanus shot in the ER in August 2025. - Blood work is ordered to follow up on mild anemia found in June. - The patient was strongly advised to st op vaping. - The patient has a follow-up appointmen t for a physical in November. Social History - Employment: The patient is currently o ut of work, has had his Family Medical Leave approved, and is awaiting payment. - Substance use: The patient has a histo ry of polysubstance abuse and currently vapes. - Mental health support: The patient is seeing a new therapist for counseling. Results - X-ray of the right hand showed interna l fixation of a comminuted fracture of the distal phalanx of the middle finger, without change. - Blood work from June 2025 showed mild anemia, good electrolytes and renal function, and a blood sugar of 107. - Cholesterol testing in April was normal . [facility] Medical History Overweight (BMI 25.0-29.9) Gonorrhea Fracture of finger, middle phalanx, left, closed Insect bites Tinea pedis Anxiety Brea Acute psychosis Polysubstance abuse Alcohol abuse Alopecia Insomnia GERD (gastroesophageal reflux disease) Marijuana smoker Asthma Surgical History Hx of appendectomy Family History Father Lung cancer Mother CVA (cerebral vascular accident) Diabetic acetonemia Brother Multiple sclerosis Sister Multiple sclerosis Maternal Aunt Skin cancer Social History Household Members: Family Housing: House Housing Other:: Initially stated that he lives with mother & then reports he is homeless Are you a primary director of critical care to a significant other at home: No Do you presently have visiting nurse or other home services: No Alcohol intake: current Alcohol intake frequency: a few times a week Comment: twice a month 3-4 beers, 3x a month 4 beers (02/2025) Patient Tobacco Use Status: Former Tobacco user Tobacco use type: Smokeless Tobacco Years Smoked: quit 06/2021vape (10/2024) e-Cigarette/Vaping Use: Currently Using Second Hand Smoke Exposure: No Substance Use Type: Crack/Cocaine, Marijuana and Opiates service: No Current occupational status: employed Current occupation: [employer] /rt hand Current occupational exposures/hazards: No Sexual orientation: Don't Know Cognitive needs: No Hearing needs: No Vision needs: No Questionnaire PHQ-9 Over the last 2 weeks, how often have you been bothered by any of the following problems? 1. Little interest or pleasure in doing things: not at all 2. Feeling down, depressed, or hopeless: not at all 3. Trouble falling or staying asleep, or sleeping too much: not at all 4. Feeling tired or having little energy: not at all 5. Poor appetite or overeating: not at all 6. Feeling bad about yourself - or that you are a failure or have let yourself or your family down: not at all 7. Trouble concentrating on things, such as reading the newspaper or watching television: not at all 8. Moving or speaking so slowly that other people could have noticed. Or the opposite - being so fidgety or restless that you have been moving around a lot more than usual: not at all 9. Thoughts that you would be better off or of hurting yourself in some way: not at all Total score: 0 Source: Developed by Drs. Cristofer Beckham, Pilar Carter, Kj Gautam and colleagues, with an educational fadia from [employer]. Thrive Questionnaire Date Thrive assessed: 10/02/25 I am a: Patient What is your living situation today?: I have a steady place to live Within the past 12 months, did the food you bought not last and you didn't have the money to get more?: Never true Within the past 12 months, did you worry whether your food would run out before you got money to buy more?: Never true Do you have trouble paying for medicines?: No Do you have trouble getting transportation to medical appointments?: No Do you have trouble paying your heating and electricity bill?: No Do you have trouble taking care of your child, family member or friend?: No Do you have trouble with day-to-day activities such as bathing, preparing meals, shopping, managing finances, etc.?: No Are you currently unemployed and looking for a job?: No Are you interested in more education?: No Currently or been in a relationship where the following occur: I choose not to answer THRIVE Score: 0 AUDIT C Alcohol Use Questionnaire (AUDIT-C) 1. How often do you have a drink containing alcohol?: 2-4 times a month 2. How many drinks containing alcohol do you have on a typical day when you are drinking?: 3 or 4 3. How often do you have six or more drinks on one occasion?: Monthly Total Score: 5 TRINI-7 AMB Questionnaire TRINI-7 Date TRINI - 7 assessed: 10/02/25 Feeling nervous, anxious, or on edge: 0 = Not at all Not being able to stop or control worryin = Not at all Worrying too much about different things: 0 = Not at all Trouble relaxin = Not at all Being so restless that it is hard to sit still: 0 = Not at all Becoming easily annoyed or irritable: 0 = Not at all Feeling afraid as if something awful might happen: 0 = Not at all Total TRINI-7 score (0-4 normal; 5-9 mild; 10-14 moderate; 15-21 severe): 0 Source: Developed by Drs. Cristofer Beckham, Pilar Carter, Kj Gautam and colleagues, with an educational fadia from [employer]. Review of Systems Narrative Review of Systems - Respiratory: Reports increased use of albuterol inhaler lately. - Musculoskeletal: Reports pain in the right middle finger post-operatively. - Psychiatric: Reports anxiety related to hospital visits. - Genitourinary: Denies sexually transmitted diseases when asked about recent lab work. Physical exam (Primary Care) Vital Signs: Last Vital Signs Pulse 91 10/02/25 08:41 BP 110/72 10/02/25 08:41 Pulse Ox 99 10/02/25 08:41 Oxygen Delivery Method Room Air 10/02/25 08:41 BMI result Body Mass Index 23.3 Tobacco/Smoking Status: Tobacco use Status Tobacco use date assessed 10/02/25 10/02/25 08:46 Patient Tobacco Use Status Former Tobacco user 10/02/25 08:46 Tobacco use type Smokeless Tobacco 10/02/25 08:46 e-Cigarette/Vaping Use Currently Using 10/02/25 08:46 PHQ-9: PHQ-9 Score PHQ-9: Total score 0 10/02/25 08:56 Thrive Assessment: Date of Thrive Assessment Date Thrive assessed 10/02/25 10/02/25 08:46 Currently or been in a relationship where the following occur: I choose not to answer Narrative Physical Exam - No physical exam was performed during the visit. Const General: alert; No acute distress Eyes Conjunctivae: conjunctivae normal Resp Auscultation: clear to auscultation bilaterally Cardio Rate: regular rate Rhythm: regular rhythm GI Inspection: Yes normal to inspection Extrem Other: R middle, 4th and fifth finger casted Coding Level of Care Code Est Pt Level 4 (52706) Add On Problem Visit Only Diagnoses Open fracture of distal phalanx of right middle finger with mallet deformity S62.632B; M20.011 Mild intermittent asthma without complication J45.20 Asthma complication type: uncomplicated Asthma persistence: intermittent Asthma severity: mild Vaping nicotine dependence, non-tobacco product F17.200 Anemia, unspecified type D64.9 Anemia type: unspecified type Gastroesophageal reflux disease without esophagitis K21.9 Esophagitis presence: without esophagitis Impaired glucose tolerance R73.02 Generalized anxiety disorder F41.1 Polysubstance abuse F19.10 Assessment & Plan Assessment & Plan (1) Open fracture of distal phalanx of right middle finger with mallet deformity: Code(s): S62.632B - Displaced fracture of distal phalanx of right middle finger, initial encounter for open fracture; M20.011 - Mallet finger of right finger(s) Category: Medical Plan: Patient continues to follow-up with orthopedics status post ORIF. (2) Asthma: Code(s): J45.909 - Unspecified asthma, uncomplicated Category: Medical Qualifiers: Asthma complication type: uncomplicated Asthma persistence: intermittent Asthma severity: mild Qualified Code(s): J45.20 - Mild intermittent asthma, uncomplicated Plan: Patient on albuterol inhaler as needed (3) Vaping nicotine dependence, non-tobacco product: Code(s): F17.200 - Nicotine dependence, unspecified, uncomplicated Category: Medical Plan: Patient is strongly advised to stop vaping admission (4) Anemia: Code(s): D64.9 - Anemia, unspecified Category: Medical Qualifiers: Anemia type: unspecified type Qualified Code(s): D64.9 - Anemia, unspecified Plan: Will continue to monitor for now (5) GERD (gastroesophageal reflux disease): Code(s): K21.9 - Gastro-esophageal reflux disease without esophagitis Category: Medical Qualifiers: Esophagitis presence: without esophagitis Qualified Code(s): K21.9 - Gastro-esophageal reflux disease without esophagitis Plan: Avoid the foods that causes that usually spicy foods, tomato products, juices, coffee, soda and foods that your sensitive to. After eating do not lie down, allow 3-4 hours before in lie down. And keep the head of bed above 30 degrees to avoid the acid from going up. (6) Impaired glucose tolerance: Code(s): R73.02 - Impaired glucose tolerance (oral) Category: Medical Plan: Decrease the amount of carbohydrate intake, pasta, bread, rice and potatoes are all sugar and that is aside from all the sweet stuff, remember that fruits are good but they are Sweet also. (7) Generalized anxiety disorder: Comment: Living [place] once a week (phone) Nadine Dayton 07/2022 Code(s): F41.1 - Generalized anxiety disorder Category: Medical Plan: Stable continue with counseling and therapy (8) Polysubstance abuse: Code(s): F19.10 - Other psychoactive substance abuse, uncomplicated Category: Medical Plan: Patient is strongly advised to stop! Plan Plan Patient was informed and verbally consented to the use of an ambient scribe for clinic note documentation during this visit. 1. Asthma The patient reports increased use of his albuterol inhaler, which is exacerbated by his continued vaping. A prescription for Symbicort, a controller inhaler, will be sent to help manage his symptoms, to be taken as two puffs twice a day. The patient was strongly advised to stop vaping as it irritates his lungs. 2. Generalized Anxiety Disorder The patient reports situational anxiety related to medical appointments and is currently stable with ongoing counseling from a new therapist. A temporary prescription for an unspecified anxiolytic was provided for as-needed use, particularly for his upcoming stitch removal. 3. Status Post Orif Of Right Middle Finger The patient is recovering from surgery and reports pain. Pain management was deferred to his orthopedic surgeon, with a recommendation for [id number]-[id number] Tylenol or ibuprofen. He will continue to follow-up with orthopedics and has an upcoming appointment on the for stitch removal. 4. Mild Anemia Mild anemia was noted on blood work from June, which is not severe but requires monitoring. A lab order for follow-up blood work has been placed, and the results will be reviewed at his next appointment. 5. Tobacco Use Disorder The patient continues to vape despite having asthma. I strongly advised the patient to stop vaping and educated him that it irritates his lungs and worsens his respiratory symptoms. Discussion Notes I reviewed the patient's history, including his recent right middle finger injury and the corresponding surgery. We discussed his worsening asthma symptoms and increased albuterol use, which I explained are likely exacerbated by his continued vaping. I prescribed Symbicort as a controller inhaler but advised him that insurance coverage may be an issue and strongly counseled him again on quitting vaping. In response to his anxiety about medical appointments, particularly his upcoming stitch removal, I prescribed a temporary, as-needed medication, clarifying it is not for daily use. I explained that management of his post-operative finger pain should be directed by his surgeon and recommended [id number]-[id number]-[id number] options like Tylenol or ibuprofen. I also informed him about the mild anemia found on his June labs and placed an order for repeat blood work to monitor this, which we can review at his physical scheduled for November. Patient Instructions - Take the new controller inhaler, Symbicort, by using two puffs twice a day, every day, to help your breathing. - It is very important to stop vaping, as it irritates your lungs and makes your asthma worse. - Take the new medication for anxiety only when you need it, such as for anxiety about your appointments. - For pain in your finger, you can use [id number]-qhp-[id number] medicine like Tylenol or Ibuprofen, but you should discuss pain control with your surgeon. - Continue with your therapy and counseling. - A lab order for blood work has been placed to follow up on your anemia; you can get this done before your next visit. - Your next follow-up appointment is for a physical in November. Orders: Orders Complete Blood Count Auto Diff Today D64.9 - Anemia, unspecified Ferritin Today D64.9 - Anemia, unspecified Thyroid Stimulating Hormone Today D64.9 - Anemia, unspecified Comprehensive Met. Panel Today D64.9 - Anemia, unspecified Hemoglobin A1c Today D64.9 - Anemia, unspecified Reticulocyte Count Today D64.9 - Anemia, unspecified IRON PROFILE Today D64.9 - Anemia, unspecified Vitamin B12 and Folate Today D64.9 - Anemia, unspecified Medications: New lorazepam (Ativan) 0.5 mg PO DAILY PRN 7 tabs 0RF anxiety F41.1 - Generalized anxiety disorder budesonide-formoterol 160-4.5 mcg/actuation (Symbicort) 2 puffs inhalation BID 10.2 grams 0RF J45.20 - Mild intermittent asthma, uncomplicated
--- OUTSIDE RECORDS SUMMARY | 2025-10-02 08:50 | XMS_ITS | Clinical Summary ---
Author Organization [facility] Address [address] [address] Phone Care Team Providers Care Linking Machine Operator Name Role Phone Irasema Nugent MD Primary Care Provider [phone] Medications perphenazine (TRILAFON) 4 MG tablet TAKE [...] topic Medical Devices Not on file Insurance [employer] CAREPLUS TOGETHER [employer] CAREStep-In TOGETHER [employer] CAREPLUS TOGETHER [employer] [employer] CARE[employer]US TOGETHER HEALTH CAREPLUS TOGETHER [place] [employer] CARE[employer] TOGETHER HEALTH CAREPLUS TOGETHER HEALTH CAREPLUS TOGETHER [place] [employer] Care Teams Linking Machine Operator Relationship Specialty Start Date End Date Raffi, Irasema Owen MD [address] [place] [address] PCP - General Internal Medicine 06/02/17 Additional Source Comments The information contained in this document represents components of the legal health record. It is not the complete legal health record.[facility]
== END 2025-10-02 09:04 | disposition home or self-care (01) ==
LOC: HO.HMCH 08:37
PROVIDERS: PCP Internal Medicine; Visit Provider Internal Medicine
DX: S62.632B Displaced fracture of distal phalanx of right middle finger, initial encounter for open fracture (principal); M20.011 Mallet finger of right finger(s); J45.20 Mild intermittent asthma, uncomplicated; F17.200 Nicotine dependence, unspecified, uncomplicated; D64.9 Anemia, unspecified; K21.9 Gastro-esophageal reflux disease without esophagitis; R73.02 Impaired glucose tolerance (oral); F41.1 Generalized anxiety disorder; F19.10 Other psychoactive substance abuse, uncomplicated

== ENCOUNTER → 2025-10-02 08:36 | Outpatient (BNVA) | payer OTHER, SELFPAY | PROVIDERS: PCP Internal Medicine; Visit Provider Internal Medicine | DX: S62.632B Displaced fracture of distal phalanx of right middle finger, initial encounter for open fracture (principal); M20.011 Mallet finger of right finger(s); J45.20 Mild intermittent asthma, uncomplicated; D64.9 Anemia, unspecified; K21.9 Gastro-esophageal reflux disease without esophagitis; R73.02 Impaired glucose tolerance (oral); F41.1 Generalized anxiety disorder; F19.10 Other psychoactive substance abuse, uncomplicated; Z87.891 Personal history of nicotine dependence | CPT/HCPCS: 99212 ==

== ENCOUNTER 2025-10-10 09:39 | Outpatient (REF) | payer OTHER, SELFPAY ==
--- NOTE | ~2025-10-10 | XR_ITS ---
EXAMINATION: XR HAND 3 OR MORE VIEWS RIGHT HISTORY: M79.641 - Pain in right hand COMPARISON: Comparison is made with the prior examination dated 10/01/2025. FINDINGS: Three views of the right hand are submitted. Again seen is a single K wire through the DIP joint of the middle finger at the site of a comminuted fracture and additional fracture of the volar aspect of the base of the distal phalanx is again noted. There is marked osteopenia of the distal phalanx with associated soft tissue swelling. Osteomyelitis is not excluded. XR/XR hand RT min 3V IMPRESSION: Internal fixation of a comminuted fracture of the distal phalanx of the middle finger. Marked osteopenia of the distal phalanx and associated soft tissue swelling raises the possibility of osteomyelitis. Clinical correlation is recommended. Electronically signed by: Cristofer Hatch MD 10/10/2025 01:22 PM DAMIEN BHAGAT
--- OUTSIDE RECORDS SUMMARY | 2025-10-10 10:11 | XMS_ITS | Clinical Summary ---
Author Organization [facility] Address [address] [address] Phone Care Team Providers Care Instruction Assistant Principal Name Role Phone Irasema Nugent MD Primary Care Provider [phone] Medications perphenazine (TRILAFON) 4 MG tablet TAKE [...] topic Medical Devices Not on file Insurance [employer] TO[employer]HER [employer]ge[employer]HER [employer] CAREPLUS TOGETHER [employer] TOGETHER HEALTH [employer]ARE[employer]US TOGETHER [employer] TOGETHER HEALTH [employer]US TOGETHER HEALTH [employer] TOGETHER [employer] Care Teams Instruction Assistant Principal Relationship Specialty Start Date End Date Raffi, Irasema Owen MD [address] [place] [address] PCP - General Internal Medicine 06/02/17 Additional Source Comments The information contained in this document represents components of the legal health record. It is not the complete legal health record.[facility]
== END 2025-10-10 09:40 | disposition home or self-care (01) ==
LOC: HO.HOSX 09:39
DX: S62.632B Displaced fracture of distal phalanx of right middle finger, initial encounter for open fracture (principal); M20.011 Mallet finger of right finger(s); X58.XXXA Exposure to other specified factors, initial encounter; Y92.9 Unspecified place or not applicable; Y93.9 Activity, unspecified; Y99.9 Unspecified external cause status
CPT/HCPCS: 73130; 99212; J0665

== ENCOUNTER 2025-10-10 11:08 | Outpatient (AMB) | payer OTHER, SELFPAY ==
[2025-10-10 11:12] VITALS: BMI 23.3
--- NOTE | 2025-10-10 11:12 | A.OFFVIS_ITS ---
Vital Signs 10/10/25 11:12 Height 5 ft 5 in Weight 140 lb BMI 23.3 Intake Visit Reasons: PO-RT MF I&D ORIF 09/13/25 AR Intake Note: Ifeanyi is a 45 year old right hand dominant male who presents today for a Post- Operative Visit status post Right Middle Finger I&D, ORIF, and Nail Bed Repair, DOS: 09/13/25. At his last visit he was hypersensitive and refused cast placemen t therefore, he was placed in a splint. Remining suture to be removed today. Allergies No Known Allergies Allergy (Verified 10/10/25 12:23) HPI HPI PO-RT MF I&D ORIF 09/13/25 AR: Details: Ifeanyi is a 45 year old right hand dominant male who presents today for a Post-Operative Visit status post Right Middle Finger I&D, ORIF, and Nail Bed Repair, DOS: 09/13/25. At his last visit he was hypersensitive and refused cast placement therefore, he was placed in a splint. Remining suture to be removed today. Patient states that he is still very anxious about anything to do with his finger, but he did take a medication for anxiety prior to presentation. Patient reports no change in symptoms. Denies that the cast or splint got wet or dirty. No other acute complaints or concerns at this time. [facility] Medical History Overweight (BMI 25.0-29.9) Gonorrhea Fracture of finger, middle phalanx, left, closed Insect bites Tinea pedis Anxiety Brea Acute psychosis Polysubstance abuse Alcohol abuse Alopecia Insomnia GERD (gastroesophageal reflux disease) Marijuana smoker Asthma Surgical History Hx of appendectomy Family History Father Lung cancer Mother CVA (cerebral vascular accident) Diabetic acetonemia Brother Multiple sclerosis Sister Multiple sclerosis Maternal Aunt Skin cancer Social History Household Members: Family Housing: House Housing Other:: Initially stated that he lives with mother & then reports he is homeless Are you a primary care director rn to a significant other at home: No Do you presently have visiting nurse or other home services: No Alcohol intake: current Alcohol intake frequency: a few times a week Comment: twice a month 3-4 beers, 3x a month 4 beers (02/2025) Patient Tobacco Use Status: Former Tobacco user Tobacco use type: Smokeless Tobacco Years Smoked: quit 06/2021vape (10/2024) e-Cigarette/Vaping Use: Currently Using Second Hand Smoke Exposure: No Substance Use Type: Crack/Cocaine, Marijuana and Opiates Advance Directives: No Advance Directives Information Provided: Yes service: No Current occupational status: employed Current occupation: [employer] /rt hand Current occupational exposures/hazards: No Sexual orientation: Don't Know Cognitive needs: No Hearing needs: No Vision needs: No Physical Exam Vital Signs: BMI result Body Mass Index 23.3 Const General: cooperative, healthy appearing and no acute distress Orientation/consciousness: patient oriented x3 HEENT Head: Yes normocephalic and Yes atraumatic Eyes EOM: EOMs intact bilaterally Resp Effort & Inspection: normal respiratory effort and able to speak in complete sentences Cardio Jugular venous distension: no JVD Skin General skin exam: turgor normal Rashes: no rashes Neuro General: patient oriented x3 Extrem Other: Evaluation of Right Upper Extremity: The patient is alert, oriented, and in no acute distress Sensation intact to the tip of the finger Cap refill brisk Skin: He has no further maceration of the dorsal aspect of the finger from the middle phalanx distally. There is a transverse laceration just proximal to eponycheal fold Of note, with even gentle palpation, there is purulent drainage noted of the ulnar aspect of the distal right middle finger, appears to be coming from under the nail There is also increased swelling from previous evaluation Pin site clean, dry, does not appear to be any drainage from this area at this time General: No Erythema or evidence of infection. Psych Appearance: grossly normal Affect: normal affect Attitude: cooperative Results Reviewed Results Reviewed: X-rays obtained in the office today and independently reviewed by me, Bal Taylor PA-C, demonstrate status post CRPP of open mallet fracture of right middle finger with increased lucency from previous x-rays concerning for potential osteomyelitis. Assessment & Plan Assessment & Plan (1) Open fracture of distal phalanx of right middle finger with mallet deformity: Code(s): S62.632B - Displaced fracture of distal phalanx of right middle finger, initial encounter for open fracture; M20.011 - Mallet finger of right finger(s) Category: Medical Plan 1. Status post I and D and ORIF of right middle finger DOS 09/13/2025 Case was discussed with Dr. Sanchez, who was available to see the patient with me in the office today, and a collaborative treatment plan was formed: After discussion with Dr. Sanchez, it was clear that there is concern for postoperative infection status post I&D and ORIF of right middle finger Therefore, per Dr. Sanchez, patient was added onto the OR schedule for later today for I and D and possible pin removal of the right middle finger Due to concern for osteomyelitis, patient will be admitted to the floor after surgery for IV antibiotics I educated the patient about the condition. I discussed both operative and nonoperative treatment options. The patient would like to proceed with surgery. The risks and benefits of operative treatment were discussed with the patient and the patient wishes to proceed with surgery. These risks include, but are not limited to, risk of damage to blood vessels, nerves, tendons, infection, recurrence, incomplete relief of preoperative symptoms, persistent pain, possible need for further surgery, and the risks associated with regional blocks and/or anesthesia. Plan is to take the patient to the operating room at some point in the next few weeks for the following procedures: 1. I and D of right middle finger under general anesthesia Patient has been NPO since last night Plan to admit after surgery Orders: Orders XR hand RT min 3V Today M79.641 - Pain in right hand Coding Level of Care Code Global (16746) Diagnoses Open fracture of distal phalanx of right middle finger with mallet deformity S62.632B; M20.011
== END 2025-10-10 12:57 | disposition home or self-care (01) ==
LOC: HO.HOS 11:09
PROVIDERS: PCP Internal Medicine
DX: S62.632B Displaced fracture of distal phalanx of right middle finger, initial encounter for open fracture (principal); M20.011 Mallet finger of right finger(s)
CPT/HCPCS: 99024

== ENCOUNTER → 2025-10-10 11:20 | Outpatient (BNV) | payer OTHER, SELFPAY | PROVIDERS: Visit Provider Radiology Diagnostic Radiology | DX: M79.641 Pain in right hand (principal) | CPT/HCPCS: 73130 ==

== ENCOUNTER 2025-10-10 12:30 | Day surgery (SDC) | payer OTHER, SELFPAY ==
[2025-10-10 12:46] VITALS: BMI 22.7
--- NOTE | 2025-10-10 12:52 | PC.NURSE ---
Dr. Perry aware that patient admits to doing cocaine on Wednesday - stated okay to proceed as procedure needs to be done today.
[2025-10-10 12:57] VITALS: BP 129/93; PULSE 77; RESP 18; TEMP 36.8; O2SAT 98
--- NOTE | 2025-10-10 12:59 | P.HPSUR_ITS ---
Pre-Procedural Eval Section A - 24 Hr Update-Section A only Date of Service: 10/10/25 The patient is an INPATIENT: No Changes since office visit: Yes Cold of Flu in the past 2 weeks, Yes New Medical Problems, Yes Changes in Medication and Yes Patient answered all questions The patient has been examined within 24 hours of the surgical procedure. The History & Physical has been completed within 30 days and I have reviewed it.: Yes Section B - Complete if H&P > 30 days Chief Complaint: Cellulitis of right finger Allergies: Allergies Allergy/AdvReac Type Severity Reaction Status Date / Time No Known Allergies Allergy Verified 10/10/25 12:23 Exam Exam Comment: Patient seen and evaluated by me in our orthopedic clinic and again here in preop hold. Patient is status post an I and D of an open distal phalanx fracture and a pinning of the open mallet fracture. He presented today with increasing pain and swelling. We found a small amount of yellow purulence from beneath the nail. We did attempt to perform a digital block in clinic but he was unable to tolerate this due to his anxiety, and is now scheduled for an open I and D here in the operating room. He is alert and oriented unknown in no distress until we started to give him a shot to do a digital block. This caused significant distress and thus we stopped. His right middle finger distal phalanx area is swollen and quite tender. The K- wire is clean dry and intact with no drainage from the K-wire, but we did see a small amount of yellow purulence coming out of the ulnar edge of the nail plate. Radiographs: Radiographs were taken today and reviewed by me in clinic. They show a comminuted fracture of the distal phalanx. A K-wire is holding the D IP joint in extension. I will say that today's radiographs in comparison with radiographs 1 in 2 weeks ago appeared to show possible osteolysis of the distal phalanx worrisome for possible osteomyelitis. Plan I have reviewed the history and physical and performed a pertinent physical examination on my patient. No changes have occurred unless specified. Assessment and plan: 1. Right middle finger open distal phalanx fracture with infection status post I&D and pinning I educated the patient about this condition we discussed operative and non operative treatment options and I am recommending surgery. The patient agrees. The risks and benefits of operative treatment were discussed with the patient and the patient wishes to proceed with surgery. These risks include, but are not limited to risk of damage to blood vessels, nerves, tendons, infection, recurrence, incomplete relief of preoperative symptoms, persistent pain, possible need for further surgery and the risks associated with regional blocks and anesthesia. The plan is to take the patient to the operating room today for the following procedures: 1. Right middle finger I and D 2. [ ] All of the preoperative paperwork including the consent was filled out today. All the patient's questions were answered. Time Spent With Patient Time: Total time managing care of this patient today ____ minutes.
--- NOTE | 2025-10-10 13:04 | P.OP_ITS ---
Operative Note Operative Note Date of Service: 10/10/25 Narrative: Operative Note Narrative: Preop diagnosis: 1. Right middle finger open distal phalanx fracture and mallet finger infection, patient status post I and D and pinning Postop diagnosis: Same Procedure: 1. Right middle finger I and D of distal phalanx & D IP joint Surgeon: Janet Sanchez MD Barrel Raiser Helper: None Anesthesia: General Anesthesia Findings: While a small amount of creamy yellow purulence was found coming from beneath the nail plate in our clinic, no purulence was found once the nail plate was removed here in the operating room. From the incision made down to the bone of the distal phalanx between the nail bed in the ulnar paronychial fold, I found no gross purulence. From the incision made over the dorsal aspect of the D IP joint and distal phalanx I saw no gross purulence, though cultures were obtained. Implants: 0.045 K-wire removed from the patient Tourniquet time: 11 minutes EBL: 5.0 ml Specimen: Cultures taken of purulence Drains: None Complications: None Disposition: Brought to the recovery room in stable condition Plan: Oral Augmentin prescription given to take as outpatient Follow up in 6 days in clinic for a wound check, and to check cultures. Our patient has been warned that if the cultures from the bone and joint come back positive that he will likely need to be admitted and a course of IV and oral antibiotics explored. Indications: The patient is a 45 year old man with a right middle finger open distal phalanx fracture and mallet deformity that was treated with I and D and pinning of the mallet deformity. He presented today to clinic with increased pain and swelling of the distal phalanx area and purulence found beneath the nail plate. . The risks and benefits of operative treatment, including but not limited to risk of damage to blood vessels, nerves, tendons, infection, recurrence, persistent pain or numbness, incomplete resolution of preoperative symptoms, or need for further surgery were discussed with the patient and they wished to proceed with surgery. Procedure: Once consent was obtained patient was brought back to the operating suite and placed in the operating table in a supine position. . Perioperative antibiotics and anesthesia was administered by the anesthesia team. A tourniquet was applied to the proximal aspect of the right upper extremity and the limb was prepped and draped in a standard surgical fashion. The limb was elevated exsanguinated with Esmarch bandage and the tourniquet inflated to 250 mm of mercury for a total tourniquet time of 11 minutes. The nail plate was easily removed using a Monroe elevator, as it had already been removed from the patient in his previous surgery. The nail plate was placed on the back table. While He had creamy yellow purulence coming from the side of the nail plate in clinic today, I did not appreciate any purulence beneath the nail plate once it was removed. Cultures were taken of some clotted blood from the nail bed. I made a 1 cm longitudinal incision between the radial border of the nail bed and the ulnar paronychial fold. The incision was made through the subcutaneous tissues down to bone. I then opened this area down to the distal phalanx fracture using iris scissors. No purulence was found.. A longitudinal incision was made directly over the dorsal ulnar aspect of the D IP joint to expose the D IP joint, and fracture of the proximal base of the distal phalanx. I then open this incision down to the level of the D IP joint and the fracture site. Again we found no gross purulence. Cultures were taken from this part of the D IP joint and the distal phalanx fracture. At this point all wounds were copiously irrigated with normal saline. I did use a 10 mL syringe and an Angiocath to appropriately irrigate out the wounds. At this point the tourniquet was deflated and hemostasis obtained with a brief period of local pressure. The wound was copiously irrigated with normal saline. The skin edges over the D IP joint were loosely reapproximated with 5-0 nylon suture. A digital block was performed using some 0.25% plain Marcaine for postop pain control and a sterile dressing and finger splint were applied. The patient appears to have tolerated the procedure well and with no complications. All digits were well vascularized conclusion of the case.
[2025-10-10] MEDS: Albuterol Sulfate (0.083%) 2.5 MG/3 ML VIAL.NEB INHALE (13:07)
[2025-10-10] MEDS: Lactated Ringers 1,000 ML 80 ML IVCONT (13:07)
--- NOTE | 2025-10-10 13:11 | HO.ANESPROP2 ---
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) Sexually transmitted disease exposure (Acute) Polysubstance abuse (Acute) Dislocation of interphalangeal joint of left little finger (Acute) Tinea pedis (Acute) Generalized anxiety disorder (Acute) Annual physical exam (Acute) Impaired glucose tolerance (Acute) Anemia (Acute) Insomnia (Acute) GERD (gastroesophageal reflux disease) (Acute) Asthma (Acute) Past Medical History Medical History Overweight (BMI 25.0-29.9) Gonorrhea Fracture of finger, middle phalanx, left, closed Insect bites Tinea pedis Anxiety Brea Acute psychosis Polysubstance abuse Alcohol abuse Alopecia Insomnia GERD (gastroesophageal reflux disease) Marijuana smoker Asthma Cognitive capacity: normal Family History Family History Father Lung cancer Mother CVA (cerebral vascular accident) Diabetic acetonemia Brother Multiple sclerosis Sister Multiple sclerosis Maternal Aunt Skin cancer Family history of problems with anesthesia: No Surgical History Surgical History Hx of appendectomy History of Problems with Anesthesia: No Social History Social History Household Members: Family Housing: House Housing Other:: Initially stated that he lives with mother & then reports he is homeless Are you a primary rn coronary care unit to a significant other at home: No Do you presently have visiting nurse or other home services: No Alcohol intake: current Alcohol intake frequency: a few times a week Comment: twice a month 3-4 beers, 3x a month 4 beers (02/2025) Patient Tobacco Use Status: Former Tobacco user Tobacco use type: Smokeless Tobacco Years Smoked: quit 06/2021vape (10/2024) Smoked in Last 30 Days: Yes e-Cigarette/Vaping Use: Currently Using Patient Interested in Nicotine Replacement: No Second Hand Smoke Exposure: No Substance Use Type: Crack/Cocaine, Marijuana and Opiates Substance Use Frequency: Occasionally Have you been hit, kicked, punched, or otherwise hurt by someone within the past year? If so, by whom?: No Are you DNR?: No Advance Directives: No Advance Directives Information Provided: Yes service: No Current occupational status: employed Current occupation: [employer] Current occupational exposures/hazards: No Sexual orientation: Don't Know Cognitive needs: No Hearing needs: No Vision needs: No Meds Allergies Allergy/AdvReac Type Severity Reaction Status Date / Time No Known Allergies Allergy Verified 10/10/25 12:23 Active Medications: Current Medications Albuterol Sulfate (Albuterol Sulfate (0.083%) 2.5 Mg/3 Ml Vial.Neb) 2.5 mg INHALE Q2H PRN PRN Reason: preop Last Admin: 10/10/25 13:07 Dose: 2.5 mg Lactated Ringer's (Lr) 1,000 mls @ 80 mls/hr IVCONT .[id number] Last Admin: 10/10/25 13:07 Dose: 80 mls/hr Cefazolin Sodium/Dextrose (Ancef) 2 gm in 50 mls @ 100 mls/hr IV PREOP ONE Stop: 10/10/25 13:17 Exam Height,Weight and Vital Signs: Height 5 ft 5 in Weight 61.779 kg Last Vital Signs Temp 98.2 F 10/10/25 12:57 Pulse 77 10/10/25 12:57 Resp 18 10/10/25 12:57 BP 129/93 H 10/10/25 12:57 Pulse Ox 98 10/10/25 12:57 O2 Del Method Room Air 10/10/25 12:57 Pertinent Lab Results Pertinent Lab Results: please look under labs section Airway TM Dist: >3cm Loose/Missing/Broken Teeth: No Heart: ok Lungs: ok Other: normal. Assessment and Plan Assessment Anesthesia Assessment: Smoking Cess. Discussed and Chart Reviewed Final Anesthetic Review Family History of Problems with Anesthesia: No History of Problems with Anesthesia: No NPO: Yes ASA Class: II, III and Emergency Final Preanesthetic Review: No Changes in Pt Med Stat, Meds/Allgs Chart Reviewed, Consent Obtained/Reviewed and Anes Risks/Benef Reviewed Patient Risk: Intermediate Procedure Risk: Low Anesthetic Plan Anesthetic Plan: GA Disposition: Standard PACU
[2025-10-10 14:24] VITALS: BP 179/102; PULSE 131; RESP 16; TEMP 36.3; O2SAT 99
[2025-10-10 14:29] VITALS: BP 168/111; PULSE 112; RESP 14; O2SAT 98
[2025-10-10 14:34] VITALS: BP 147/93; PULSE 109; RESP 16; O2SAT 97
[2025-10-10 14:39] VITALS: BP 156/99; PULSE 107; RESP 14; O2SAT 98
[2025-10-10 14:54] VITALS: BP 158/97; PULSE 107; RESP 14; TEMP 36.4; O2SAT 99
== END 2025-10-10 15:17 | disposition home or self-care (01) ==
PROVIDERS: PCP Internal Medicine; Visit Provider Orthopaedic Surgery
PROC: (CPT 26320; principal; 2025-10-10 13:00)
DX: T81.40XA Infection following a procedure, unspecified, initial encounter (principal); L03.011 Cellulitis of right finger; M20.011 Mallet finger of right finger(s); B95.7 Other staphylococcus as the cause of diseases classified elsewhere; Y79.2 Prosthetic and other implants, materials and accessory orthopedic devices associated with adverse incidents; M79.644 Pain in right finger(s); M79.89 Other specified soft tissue disorders; Z98.890 Other specified postprocedural states; B35.3 Tinea pedis; F14.90 Cocaine use, unspecified, uncomplicated; F19.10 Other psychoactive substance abuse, uncomplicated; Z90.49 Acquired absence of other specified parts of digestive tract
CPT/HCPCS: 26320; 26080; 87070; 87077; 87186; 87205; J0665; J0690; J2003; J2004; J2405; J2704; J3010

== ENCOUNTER → 2025-10-10 12:30 | Outpatient (BNV) | payer OTHER, SELFPAY | PROVIDERS: PCP Internal Medicine; Visit Provider Orthopaedic Surgery | DX: T84.7XXA Infection and inflammatory reaction due to other internal orthopedic prosthetic devices, implants and grafts, initial encounter (principal); L60.9 Nail disorder, unspecified | CPT/HCPCS: 11730; 26011 ==